=== PATIENT | male | born 1955 | race Caucasian/White ===

== ENCOUNTER → 2016-07-29 | Outpatient (CLI) | payer MEDICARE | LOC: M SLEEP 19:25 | PROVIDERS: ATTEND Internal Medicine Pulmonary Disease | DX: G47.30 Sleep apnea, unspecified (principal) ==

== ENCOUNTER → 2018-02-22 | Outpatient (REF) | payer MEDICARE | LOC: M LAB REF 16:34 | DX: L08.9 Local infection of the skin and subcutaneous tissue, unspecified (principal) | CPT/HCPCS: 87186 ==

== ENCOUNTER → 2019-01-30 | Outpatient (CLI) | payer BC ==
--- NOTE | 2019-02-06 04:04 | ECWPNPC ---
PATIENT NAME: TRUPTI ARNOLD : 1955 GENDER: MALE VISIT DATE: 01/30/2019 DISCHARGE DATE: 01/30/19 1631 VISIT LOCKED DATE TIME: PHYSICIAN: PRADEEP WALSH MD RESOURCE: PRADEEP WALSH MD REASON FOR APPOINTMENT 1. SCIATICA HISTORY OF PRESENT ILLNESS PAIN SCREENING: PATIENT HAS A COMPLAINT OF ACUTE OR CHRONIC PAIN :YES 63 YEAR OLD MALE PATIENT WITH A HISTORY OF CHRONIC LOW BACK AND BILATERAL LEG PAIN. THE PATIENT DESCRIBES THE PAIN ACHING, BURNING, SORE, AND SHOOTING WITH A PAIN SCORE OF 6-10/10 DEPENDING ON PHYSICAL ACTIVITY. THE PATIENT STATES HIS PAIN BEGINS IN HIS LOW BACK AND RADIATES DOWN BOTH LEGS, BUT THE PAIN IS WORSE IN HIS RIGHT LEG. THE PATIENT SAYS HE HAS BEEN SUFFERING FROM HIS PAIN FOR MANY YEARS, BUT THE PAIN HAS WORSENED OVER THE LAST YEAR. 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 THE PATIENT SAYS HE HURT HIS BACK BUT CONTINUED TO WORK THROUGH HIS SHIFT THAT DAY, BUT EXPERIENCED PAIN THROUGH THE DAY AND NIGHT, AND BY THE NEXT MORNING HE TRIED TO ROLL OUT OF BED BUT WAS UNABLE TO MOVE DUE TO HIS LOW BACK PAIN. THE PATIENT STATES HE HAD BACK SURGERY PERFORMED BY DR. ALAMO AT [facility] AND LATER RETURNED TO WORK, UNTIL HE HAD ANOTHER BACK INJURY AFTER SWINGING A BOX AT WORK AND HE COLLAPSED FROM THE PAIN. THE PATIENT SAYS HE HAS NOT RETURNED TO WORK SINCE HIS LAST INCIDENT. THE PATIENT REPORTS HIS TWO BACK SURGERIES WERE DONE IN [address] ALAMO AT [facility]. THE PATIENT SAYS HE IS USING LYRICA TO AID IN PAIN RELIEF. PATIENT DENIES UNEXPLAINABLE WEIGHT LOSS, FEVER, CHILLS, NEW CHANGES ON HIS URINARY OR BOWEL CONTROL. FALL RISK SCREENING: SCREENING :NO FALLS REPORTED IN THE LAST YEAR CURRENT MEDICATIONS TAKING LYRICA 75 MG CAPSULE 1 CAPSULE ORALLY TID TAKING VALSARTAN 160 MG TABLET 1 TABLET ORALLY ONCE A DAY TAKING ATORVASTATIN CALCIUM 40 MG TABLET 1 TABLET ORALLY ONCE A DAY TAKING ASPIR-81 TAKING LABETALOL HCL 200 MG TABLET 1 TABLET ORALLY TWICE A DAY TAKING SERTRALINE HCL 100 MG TABLET 1 TABLET ORALLY ONCE A DAY TAKING LEVOTHYROXINE SODIUM 25 MCG TABLET 1 TABLET IN THE MORNING ON AN EMPTY STOMACH ORALLY ONCE A DAY TAKING VITAMIN D (CHOLECALCIFEROL) 50 MCG (1999 UT) CAPSULE 1 CAPSULE ORALLY ONCE A DAY TAKING MECLIZINE HCL 12.5 MG TABLET 1 TABLETS NEEDED ORALLY TID PRN MEDICATION LIST REVIEWED AND RECONCILED WITH THE PATIENT PAST MEDICAL HISTORY HTN HYPOTHYROIDISM HIGH CHOLESTEROL ALLERGIES VICKS BABYRUB: ANAPHYLAXIS - ALLERGY MELON: ANAPHYLAXIS - ALLERGY SURGICAL HISTORY BACK SURGERY 1993 & 1996 5 CARDIAC STENTS 2015 4 SHOULDER SURGERIES AND 2 ROTATOR CUFF REPAIRS [phone] BILAT CARPAL TUNNEL RELEASE ABD HERNIA REPAIR CHOLECYSTECTOMY FAMILY HISTORY FATHER: MOTHER: 3 BROTHER(S) , 2 SISTER(S) . 3 SON(S) - HEALTHY. SOCIAL HISTORY GENERAL: TOBACCO USE ARE YOU A:NONSMOKER PAIN CLINIC PFS, CLERGY, PUBLIC HEALTH REFERRALS HAS THE PATIENT BEEN EDUCATED REGARDING HIS/HER PLAN OF CARE?YES HAS THE PATIENT BEEN EDUCATED REGARDING PAIN, THE RISK FOR PAIN, THE IMPORTANCE OF EFFECTIVE PAIN MANAGEMENT, AND THE PAIN ASSESSMENT PROCESS?YES ADVANCE DIRECTIVE ADVANCE DIRECTIVE DISCUSSED WITH PATIENT:YES DECLINED ORTHODOX [id number] CATHOLIC LANGUAGE LANGUAGES SPOKEN:ROMANIAN LEARNING BARRIERS / SPECIAL NEEDS BARRIERS TO LEARNING?NO HEARING IMPAIRED?NO VISION IMPAIRED?YES :CORRECTIVE LENSES COGNITIVELY IMPAIRED?NO READINESS TO LEARN?YES LEARNING PREFERENCES?NO LEARNING CAPABILITIES PRESENT?YES EMOTIONAL BARRIERS?NO SPECIAL DEVICES?NO HOSPITALIZATION/MAJOR DIAGNOSTIC PROCEDURE SURGERIES REVIEW OF SYSTEMS REVIEWED BY: PROVIDER: PRADEEP WALSH MD . CONSTITUTIONAL: ANY CHANGE IN YOUR MEDICAL CONDITION? NO . CHILLS NO . FEVER NO . INFECTION: DO YOU HAVE NEW INFECTIONS? NO . DO YOU HAVE HISTORY OF MRSA? NO . MUSCULOSKELETAL: ANY NEW PATTERNS OF PAIN OR NUMBNESS? YES, PAIN GETS BETTER AND WORSE . SYTEMIC LUPUS NO . GASTROENTEROLOGY: ANY NEW CHANGE IN BOWEL CONTROL? NO . BARRETTS ESOPHAGUS NO . CIRRHOSIS NO . HEPATITIS NO . LIVER FAILURE NO . ACID REFLUX NO . UNEXPLAINED WEIGHT LOSS NO . GENITOURINARY: ANY NEW CHANGE IN BLADDER CONTROL? NO . IS THERE A CHANCE YOU COULD BE ? NO . HEMATOLOGY/LYMPH: DO YOU TAKE ANY BLOOD THINNERS? (FOR EXAMPLE- COUMADIN, PLAVIX, AGGRENOX, PLATEL, PRADAXA, OR XARELTO) NO . WHEN WAS YOUR LAST DOSE? DATE: TIME: . LOW PLATELET COUNT NO . SICKLE CELL DISEASE NO . VON WILLIEBRANDS NO . FACTOR V LEIDEN NO . THALLASEMIA NO . ANEMIA NO . EASY BRUISING NO . NEUROLOGY: HAVE YOU FALLEN IN THE PAST 12 MONTHS? YES, FELL LAST WEEK FROM LEG WEAKNESS . ANY NEW EXTREMITY NUMBNESS OR WEAKNESS? YES ,LEFT SHOULDER PAIN AND LOW BACK PAIN RADIATING DOWN LEGS . HEAD INJURY NO . DEMENTIA NO . CEREBRAL PALSY NO . MULTIPLE SCLEROSIS NO . DIZZINESS NO . HEADACHE NO . STROKES NO . VERTIGO NO . CARDIOLOGY: DO YOU HAVE A PACEMAKER OR DEFIBRILLATOR? NO . ANGINA NO . HEART ATTACK NO . HEART SURGERY YES, 5 STENTS PLACED . CONGESTIVE HEART FAILURE/FLUID OVERLOAD NO . CHEST PAIN NO . HIGH BLOOD PRESSURE ON MEDICATION(S) . IRREGULAR HEART BEAT NO . RESPIRATORY: HAVE YOU BEEN SICK IN THE PAST WEEK? NO . FEVER NO . FLU LIKE SYMPTOMS? NO . CPAP NO . BYPAP NO . ASTHMA NO . EMPHYSEMA NO . CHRONIC LUNG DISEASES NO . SHORTNESS OF BREATH ON EXERTION NO . COUGH NO . SNORING NO . INTEGUMENTARY: DO YOU HAVE ANY RASHES OR OPEN SORES? NO . ALLERGIC/IMMUNO: ARE YOU ALLERGIC TO IV DYE? NO . ANY NEW ALLERGIES? NO . PSYCHIATRIC: DO YOU HAVE THOUGHTS OF HURTING YOURSELF OR SOMEONE ELSE? NO . ARE YOU ABUSED, NEGLECTED, OR IN AN UNSAFE ENVIRONMENT? NO . ENDOCRINOLOGY: ARE YOU DIABETIC? NO . THYROID DISORDER HYPOTHYROID . OTHER: DO YOU NEED ANY PRESCRIPTIONS? NO . IF YES, PLEASE LIST: ____ . ANY NEW PROBLEMS WITH YOUR MEDICATIONS? NO . WHEN DID YOU LAST EAT? ____ . WHEN DID YOU LAST DRINK? ____ . WHAT DID YOU LAST DRINK? ____ . NAME OF PERSON DRIVING YOU HOME? ____ . DO YOU HAVE ANY OTHER QUESTIONS OR CONCERNS NO . VITAL SIGNS WT 322.4 LBS, HT 70 IN, BMI 46.25 INDEX, BP 163/82 MM HG, HR 71 /MIN, RR 18 /MIN, TEMP 98.8 F, OXYGEN SAT % 95%, NA INITIALS SC 15:09, REVIEWED BY: EM. EXAMINATION GENERAL EXAMINATION: PATIENT IS ALERT O X 3 AND COOPERATIVE. LUNGS CLEAR, TO AUSCULTATION. HEART: NO MURMURS OR GALLOPS; FACIAL CRANIAL NERVES ARE GROSSLY NORMAL. GOOD SYMMETRY OF FACIAL MUSCLE MOVEMENT. NORMAL VISUAL TORRES. ANTALGIC WALK. TENDERNESS OVER THE PARASPINAL MUSCLE GROUP OF THE LOW BACK. RIGHT LEG IS WEAKER AT EXTENSION AND FLEXION. STRAIGHT LEG RAISE OF THE RIGHT LEG IS POSITIVE AT 40 DEGREES FOR RADICULOPATHY. ASSESSMENTS LUMBAR POST-LAMINECTOMY SYNDROME - M96.1 (PRIMARY) INTERVERTEBRAL DISC DISORDERS WITH RADICULOPATHY, LUMBAR REGION - M51.16 CARDIAC CONDITION--HISTORY OF 5 STENTS. TREATMENT LUMBAR POST-LAMINECTOMY SYNDROME CLINICAL NOTES: WE DISCUSSED SEVERAL ISSUES WITH MR. ARNOLD'S PAIN MANAGEMENT CASE. I WOULD LIKE TO ORDER FOR A LUMBAR SPINE MRI WITH AND WITHOUT CONTRAST AND ALSO A BUN AND CREATININE TEST FOR THE CONTRAST. HOWEVER, THE PATIENT HAS A HISTORY OF 5 STENTS, THEREFORE I WILL REQUEST FOR A CLEARANCE FROM THE PATIENT'S CLOCK REPAIRER BEFORE ORDERING THE MRI'S. DEPENDING ON THE MRI RESULTS, I MAY CONSIDER PERFORMING A LUMBAR EPIDURAL IN THE FUTURE. THE PATIENT WILL FOLLOW UP WITH THE NURSE PRACTITIONER IN 3 WEEKS TO GO OVER THE RESULTS AND DISCUSS OPTIONS TO PROCEED WITH. INSTRUCTIONS WERE GIVEN, QUESTIONS WERE ANSWERED, PATIENT REPORTS UNDERSTANDING AND AGREES WITH THE PLAN. I, SHUKRI DOMINGO, DOCUMENTED THE ABOVE INFORMATION ACTING A SCRIBE FOR DR. WALSH. I HAVE REVIEWED THE ABOVE DOCUMENT, WRITTEN BY SHUKRI ELDER AND I VERIFY THAT IT IS ACCURATE. DEAR LYNN BOLTON MD: THANK YOU FOR YOUR KIND REFERRAL OF TRUPTI ARNOLD. IF YOU WANT TO DISCUSS HIS CASE WITH ME PLEASE CALL ME AT THE PAIN CENTER AT [phone]. SINCERELY, PRADEEP WALSH MD PAIN MEDICINE . PROCEDURE CODES G8427 CURRENT MEDS W/DOSAGES DOCUMENTED G8730 PAIN ASSESS POS TOOL F/U PLAN DOC FA211 ESTABILISHED PATIENT [facility] CHARGE DISPOSITION & COMMUNICATION FOLLOW UP REASON: F/UP SANDWICH HAND, NEED CLEARANCE FOR MRI, IF CLEARED--ORDER LS MRI W/ AND W/O CONTRAST ELECTRONICALLY SIGNED BY PRADEEP WALSH MD, MD ON 02/05/2019 AT 02:31 PM EST DISCLAIMER : THIS IS A VISIT SUMMARY EXTRACTED FROM THE [employer] CHART. IT IS NOT A COPY OF THE [employer] PROGRESS NOTE. RICK
== END ==
LOC: M PAIN 15:00
PROVIDERS: ATTEND Anesthesiology
DX: M96.1 Postlaminectomy syndrome, not elsewhere classified (principal); M51.16 Intervertebral disc disorders with radiculopathy, lumbar region

== ENCOUNTER → 2019-04-17 | Outpatient (REF) | payer BC | LOC: M LAB REF 17:03 | PROVIDERS: ATTEND Nurse Practitioner Family | DX: L08.9 Local infection of the skin and subcutaneous tissue, unspecified (principal) ==

== ENCOUNTER → 2019-06-01 | Outpatient (CLI) | payer MEDICARE ==
--- NOTE | 2019-06-01 09:56 | REP ---
MRI LUMBAR SPINE WITHOUT AND WITH CONTRAST: Low back pain. Lumbar post laminectomy syndrome. Comparison MRI study August 10, 2001. TECHNIQUE: Sagittal and axial T1- and T2-weighted scans are acquired in the usual fashion with and without fat saturation. Sequences include spin echo, turbo spin echo, and STIR imaging sequences. Contrast enhancement dose is 10 mL of intravenous ProHance. MRI FINDINGS: There is straightening of the normal lumbar lordosis. A small infrarenal abdominal aortic aneurysm is seen measuring 3.2 cm in greatest anteroposterior dimension. Lumbar vertebral body heights are preserved. There are bilateral L5 pars defects and there is a grade 1 L5-S1 spondylolisthesis visible today. This measures 8 mm in dimension. It is a new finding from the 2001 prior study, although the pars defects were noted. Alignment is otherwise normal. There is diffuse degenerative spondylosis and degenerative disc changes. The tip of the conus medullaris remains normal in position and appearance at L1. No other extra vertebral abnormality is appreciated. There is a mild levoconvex lumbar curvature. Axial and sagittal images taken at L1-L2 demonstrate posterior disc bulging and osteophytic ridging indenting the ventral margin of the thecal sac and contributing to mild central canal stenosis. Midline AP dimension of the thecal sac at the L1-2 level is 10 mm. There is mild left-sided foraminal narrowing from facet hypertrophy and disc spurring. At L2-L3, there is a broad-based disc protrusion most prominent on the left side of the posterior disc margin. This along with ligamentum flavum and facet hypertrophy and developmentally short pedicles produces moderate to severe central canal stenosis. The mid line AP dimension of the thecal sac at L2-3 on sagittal images is 7 mm. There is left-sided foraminal narrowing due to disc bulging and facet hypertrophy. Minimal foraminal narrowing is noted on the right at this level as well. At the L3-4, there is a right posterior focal disc protrusion with spurring indenting the ventral margin of the thecal sac on the right. There is right foraminal narrowing from facet hypertrophy and disc bulging. There is mild central canal stenosis. Facet and mild ligamentum flavum hypertrophy is seen. At L3-4, the midline AP dimension of the thecal sac is 12 mm. At the L4-L5, there is posterior disc bulging and osteophytic ridging. No central canal stenosis is seen. There is bilateral neural foraminal narrowing, right greater than left due to discogenic spurring, disc bulging, and facet hypertrophy. At L5-S1, there is facet hypertrophy bilaterally. Minimal disc bulging is seen. There is bilateral foraminal disc bulging which along with the spondylolisthesis produces foraminal narrowing. Postcontrast enhanced imaging shows no significant contrast enhancement. IMPRESSION: Progressive degenerative spondylosis changes. Bilateral pars defects at L5-S1 with a grade 1 8 mm L5-S1 spondylolisthesis and bilateral neural foraminal narrowing. Central canal stenosis is noted most pronounced at L2-3. Multilevel neural foraminal narrowing as above. Electronically Signed by Miguel Hall MD 06/01/2019 10:01 A
== END ==
LOC: M PLARAD 07:40
PROVIDERS: ATTEND Anesthesiology
DX: M47.816 Spondylosis without myelopathy or radiculopathy, lumbar region (principal); M48.061 Spinal stenosis, lumbar region without neurogenic claudication; M54.5 Low back pain; M96.1 Postlaminectomy syndrome, not elsewhere classified

== ENCOUNTER → 2019-06-15 | Outpatient (CLI) | payer OTHER, BC ==
--- NOTE | 2019-06-16 01:25 | ECWPNPC ---
PATIENT NAME: TRUPTI ARNOLD : 1955 GENDER: MALE VISIT DATE: 06/15/2019 DISCHARGE DATE: 06/15/19 1153 VISIT LOCKED DATE TIME: PHYSICIAN: IRMA LAZO RESOURCE: IRMA LAZO REASON FOR APPOINTMENT 1. W/C, REVIEW MRI HISTORY OF PRESENT ILLNESS HISTORY OF PRESENT ILLNESS: 64-YEAR-OLD GENTLEMAN BEING SEEN FOR CHRONIC LOW BACK PAIN AND BILATERAL LEG PAIN. THIS IS A WORK RELATED INJURY WITH DATE OF INJURY 1985 WHILE WORKING FOR [email or web address]. PAIN IS LOCATED ACROSS LOWER BACK. RATING PAIN LEVEL A 7/10 VAS. PAIN IS AGGRAVATED WITH ANY ACTIVITY. REPORTING POOR QUALITY OF LIFE AND INABILITY TO DO ACTIVITIES OF DAILY LIVING DUE TO BACK PAIN AND LEG PAIN. REVIEWED MRI OF THE LS-SPINE DONE ON 06/01/2019. THIS IS SHOWING PROGRESSIVE CHANGES AND GRADE 1 SPONDYLOLISTHESIS AND BILATERAL NEURAL FORAMINAL NARROWING AT L5-S1. SHOWING CENTRAL CANAL STENOSIS MOST PRONOUNCED AT L2-3. REPORTS AGGRAVATION OF PAIN WITH RANGE OF JOINT MOTION OF THE SPINE. PAIN THE PATIENT DESCRIBES THE PAIN... FALL RISK SCREENING: SCREENING :NO FALLS REPORTED IN THE LAST YEAR CURRENT MEDICATIONS TAKING LYRICA 75 MG CAPSULE 1 CAPSULE ORALLY TID TAKING VALSARTAN 160 MG TABLET 1 TABLET ORALLY ONCE A DAY TAKING ATORVASTATIN CALCIUM 40 MG TABLET 1 TABLET ORALLY ONCE A DAY TAKING ASPIR-81 TAKING LABETALOL HCL 200 MG TABLET 1 TABLET ORALLY TWICE A DAY TAKING SERTRALINE HCL 100 MG TABLET 1 TABLET ORALLY ONCE A DAY TAKING LEVOTHYROXINE SODIUM 25 MCG TABLET 1 TABLET IN THE MORNING ON AN EMPTY STOMACH ORALLY ONCE A DAY TAKING MECLIZINE HCL 12.5 MG TABLET 1 TABLETS NEEDED ORALLY TID PRN TAKING AMLODIPINE BESYLATE 5 MG TABLET 1 TABLET ORALLY ONCE A DAY NOT-TAKING VITAMIN D (CHOLECALCIFEROL) 50 MCG (1999) CAPSULE 1 CAPSULE ORALLY ONCE A DAY MEDICATION LIST REVIEWED AND RECONCILED WITH THE PATIENT PAST MEDICAL HISTORY HTN HYPOTHYROIDISM HIGH CHOLESTEROL ALLERGIES VICKS BABYRUB: ANAPHYLAXIS - ALLERGY MELON: ANAPHYLAXIS - ALLERGY SURGICAL HISTORY BACK SURGERY 1993 & 1996 5 CARDIAC STENTS 2015 4 SHOULDER SURGERIES AND 2 ROTATOR CUFF REPAIRS [id number] BILAT CARPAL TUNNEL RELEASE ABD HERNIA REPAIR CHOLECYSTECTOMY FAMILY HISTORY FATHER: MOTHER: 3 BROTHER(S) , 2 SISTER(S) . 3 SON(S) - HEALTHY. SOCIAL HISTORY GENERAL: TOBACCO USE ARE YOU A:NONSMOKER PAIN CLINIC PFS, CLERGY, PUBLIC HEALTH REFERRALS HAS THE PATIENT BEEN EDUCATED REGARDING HIS/HER PLAN OF CARE?YES HAS THE PATIENT BEEN EDUCATED REGARDING PAIN, THE RISK FOR PAIN, THE IMPORTANCE OF EFFECTIVE PAIN MANAGEMENT, AND THE PAIN ASSESSMENT PROCESS?YES LATEX QUESTIONNAIRE LATEX ALLERGY : HAVE YOU EVER DEVELOPED ANY TYPE OF REACTION AFTER HANDLING LATEX PRODUCTS SUCH RUBBER GLOVES, CONDOMS, DIAPHRAGMS, BALLOONS, SOCKS, OR UNDERWEAR?NO LATEX ALLERGY : HAVE YOU EVER DEVELOPED ANY TYPE OF REACTION DURING OR AFTER DENTAL APPOINTMENT, VAGINAL/RECTAL EXAMINATION, SURGICAL PROCEDURE, OR ANY OTHER EXPOSURE?NO LATEX RISK : HAVE YOU EVER HAD ANY DIFFICULTY BREATHING OR HIVES AFTER EATING OR HANDLING ANY FRUITS, OR VEGETABLES; SUCH KIWI, BANANAS, STONE FRUITS, OR CHESTNUTSNO LATEX RISK : DO YOU HAVE A PREVIOUS PERSONAL HISTORY OF MORE THAN NINE SURGERIES, SPINA BIFIDA, OR REPEATED CATHERIZATIONS? NO LATEX RISK : ARE YOU FREQUENTLY EXPOSED TO LATEX PRODUCTS IN YOUR OCCUPATION?NO DATE ASKED : 06/15/2019 ADVANCE DIRECTIVE ADVANCE DIRECTIVE DISCUSSED WITH PATIENT:YES DECLINED [employer] [id number] JEW LANGUAGE LANGUAGES SPOKEN:OCCITAN NEW PATIENT PAIN DIARY TODAY'S VISITNOTES PATIENT DESCRIBES PAIN :HAVE IT ALL THE TIME, THROBBING FROM 0-10, WHAT LEVEL IS YOUR PAIN TODAY?8 PAIN IS WAKING HIM UP FROM SLEEP ALCOHOL SCREENING DID YOU HAVE A DRINK CONTAINING ALCOHOL IN THE PAST YEAR?NO POINTS0 INTERPRETATIONNEGATIVE RECREATIONAL DRUG USE DRUG USE?NO PATIENT DENIES ABUSE OR MISSUSED OF ANY MEDICATION DENIES PATIENT DENIES USE OF ANY ILLEGAL SUBSTANCE INCLUDING MARIJUANA OR COCAINE DENIES LEARNING BARRIERS / SPECIAL NEEDS BARRIERS TO LEARNING?NO HEARING IMPAIRED?NO VISION IMPAIRED?YES COGNITIVELY IMPAIRED?NO :CORRECTIVE LENSES READINESS TO LEARN?YES LEARNING PREFERENCES?NO LEARNING CAPABILITIES PRESENT?YES EMOTIONAL BARRIERS?NO SPECIAL DEVICES?NO HOSPITALIZATION/MAJOR DIAGNOSTIC PROCEDURE SURGERIES REVIEW OF SYSTEMS REVIEWED BY: PROVIDER: IRMA GUDINO . CONSTITUTIONAL: ANY CHANGE IN YOUR MEDICAL CONDITION? NO . CHILLS NO . FEVER NO . INFECTION: DO YOU HAVE NEW INFECTIONS? NO . DO YOU HAVE HISTORY OF MRSA? NO . MUSCULOSKELETAL: ANY NEW PATTERNS OF PAIN OR NUMBNESS? NO . GASTROENTEROLOGY: ANY NEW CHANGE IN BOWEL CONTROL? NO . GENITOURINARY: ANY NEW CHANGE IN BLADDER CONTROL? NO . IS THERE A CHANCE YOU COULD BE ? NO . HEMATOLOGY/LYMPH: DO YOU TAKE ANY BLOOD THINNERS? (FOR EXAMPLE- COUMADIN, PLAVIX, AGGRENOX, PLATEL, PRADAXA, OR XARELTO) NO- ASPIRIN- 81 MG DAILY . WHEN WAS YOUR LAST DOSE? DATE: TIME: . NEUROLOGY: HAVE YOU FALLEN IN THE PAST 12 MONTHS? NO . ANY NEW EXTREMITY NUMBNESS OR WEAKNESS? NO . CARDIOLOGY: DO YOU HAVE A PACEMAKER OR DEFIBRILLATOR? NO . RESPIRATORY: HAVE YOU BEEN SICK IN THE PAST WEEK? NO . FEVER NO . FLU LIKE SYMPTOMS? NO . COUGH NO . INTEGUMENTARY: DO YOU HAVE ANY RASHES OR OPEN SORES? NO . ALLERGIC/IMMUNO: ARE YOU ALLERGIC TO IV DYE? NO . ANY NEW ALLERGIES? NO . PSYCHIATRIC: DO YOU HAVE THOUGHTS OF HURTING YOURSELF OR SOMEONE ELSE? NO . ARE YOU ABUSED, NEGLECTED, OR IN AN UNSAFE ENVIRONMENT? NO . ENDOCRINOLOGY: ARE YOU DIABETIC? NO . OTHER: DO YOU NEED ANY PRESCRIPTIONS? NO . IF YES, PLEASE LIST: ____ . ANY NEW PROBLEMS WITH YOUR MEDICATIONS? NO . WHEN DID YOU LAST EAT? ____ . WHEN DID YOU LAST DRINK? ____ . WHAT DID YOU LAST DRINK? ____ . NAME OF PERSON DRIVING YOU HOME? ____ . DO YOU HAVE ANY OTHER QUESTIONS OR CONCERNS YES- STATES BILATERAL KNEES AND BILATERAL ANKLES ARE SWOLLEN, STATES HE HAS PAIN IN BILATERAL HIPS THAT RADIATES DOWN THE FRONT AND BACK OF BOTH LEGS INTO HIS FEET . VITAL SIGNS WT 318 LBS, HT 70 IN, BMI 45.62 INDEX, BP 135/80 MM HG, HR 75 /MIN, RR 18 /MIN, TEMP 97.2 F, OXYGEN SAT % 98%, SAFE IN ENV? (Y/N) YES, NA INITIALS AW 1017, REVIEWED BY: JAMIE. EXAMINATION GENERAL EXAMINATION: GENERAL AWAKE,ALERT ,PLEAASANT . PSYCH AFFECT NORMAL . LUNGS: LUNG TORRES ARE CLEAR TO AUSCULTATION BILATERALLY. GOOD MOVEMENT OF AIR . HEART: S1, S2 IN A REGULAR RATE AND RHYTHM. NO SIGNIFICANT MURMURS, RUBS OR GALLOPS NOTED . MUSCULOSKELETAL: MUSCLE STRENGTH TESTING 4/5 BILATERAL LOWER EXTREMITIES. LUMBAR: TRIGGER POINTS:, ELICITED WITH PALPATION OVER LUMBAR PARAVERTEBRAL MUSCLES AND RESTRICTION OF ROM IN THIS AREA. DIAGNOSTIC TESTS REVIEWED MRI L/S SPINE-06/01/2019. ASSESSMENTS LUMBAR POST-LAMINECTOMY SYNDROME - M96.1 (PRIMARY) CARDIAC CONDITION--HISTORY OF 5 STENTS. TREATMENT LUMBAR POST-LAMINECTOMY SYNDROME NOTES: WORKMEN'S COMP REQUEST TRIGGER POINT INJECTIONS, BILATERAL LOW BACK. PREVENTIVE MEDICINE PAIN CLINIC TEACHING: PROCEDURE TEACHING TRIGGER POINT INJECTION INFORMATION PRINTED AND REVIEWED WITH PT. PT VERBLAIZES UNDERSTANDING OF PROCEDURE WELL AN UNDERSTANDING OF PRE PROCEDURE INSTRUCTIONS REVIEWED. 06/15/2019 1154 NLJ. PROCEDURE CODES FA211 ESTABILISHED PATIENT [facility] CHARGE DISPOSITION & COMMUNICATION FOLLOW UP POST (REASON: WORKMEN'S COMP REQUEST TRIGGER POINT INJECTIONS, BILATERAL LOW BACK) ELECTRONICALLY SIGNED BY SHAHAB IRIZARRY ON 06/15/2019 AT 01:52 PM EDT DISCLAIMER : THIS IS A VISIT SUMMARY EXTRACTED FROM THE [employer] CHART. IT IS NOT A COPY OF THE [employer] PROGRESS NOTE. RICK
== END ==
LOC: M PAIN 10:00
PROVIDERS: ATTEND Nurse Practitioner Family
DX: M96.1 Postlaminectomy syndrome, not elsewhere classified (principal); I10 Essential (primary) hypertension; E03.9 Hypothyroidism, unspecified; Z91.018 Allergy to other foods; Z91.09 Other allergy status, other than to drugs and biological substances; E66.01 Morbid (severe) obesity due to excess calories; Z68.42 Body mass index [BMI] 45.0-49.9, adult; Z79.82 Long term (current) use of aspirin; Z79.899 Other long term (current) drug therapy

== ENCOUNTER → 2019-08-05 | Outpatient (CLI) | payer OTHER | LOC: M LABSMTC 09:17 | PROVIDERS: ATTEND Anesthesiology | DX: Z11.59 Encounter for screening for other viral diseases (principal) ==

== ENCOUNTER → 2019-08-08 | Outpatient (CLI) | payer OTHER, BC ==
[~2019-08-08] MED LIST: BUPIVACAINE HCL 0.25% 10ML VIAL As Ordered ONE; BUPIVACAINE HCL 0.25% 30ML VIAL As Ordered ONE
--- NOTE | 2019-08-11 01:27 | ECWPNPC ---
PATIENT NAME: TRUPTI ARNOLD : 1955 GENDER: MALE VISIT DATE: 08/08/2019 DISCHARGE DATE: 08/08/19 1451 VISIT LOCKED DATE TIME: PHYSICIAN: PRADEEP WALSH MD RESOURCE: PRADEEP WALSH MD REASON FOR APPOINTMENT 1. W/C TRIGGER POINT INJECTIONS BILAT LOW BACK HISTORY OF PRESENT ILLNESS GENERAL: -. FALL RISK SCREENING: SCREENING :ONE FALL WITHOUT INJURY IN THE PAST YEAR PAIN SCREENING: PATIENT HAS A COMPLAINT OF ACUTE OR CHRONIC PAIN :YES INTENSITY OF PAIN (SCALE OF 1 TO 10):7 WHAT DOES YOUR PAIN FEEL LIKE:BURNING, STABBING PAIN IS INREASED BY:ACTIVITIES PAIN IS DECREASED BY:OTHERS REST, LAYING DOWN NURSING NOTE: -. PAIN CENTER INTAKE QUESTIONS: DO YOU HAVE A HISTORY OF MRSA? :NO DO YOU TAKE A BLOOD THINNERS? :NO DO YOU HAVE ANY BLEEDING DISORDERS? :NO ANY NEW NUMBNESS OR WEAKNESS IN YOUR LEGS OR ARMS? :YES BOTH NUMBNESS AND WEAKNESS TO BILAT LEGS ANY PACEMAKER,DEFIBRILLATOR, OR DORSAL COLUMN STIMULATOR? :NO DO YOU HAVE ANY RASHES OR OPEN SORES? :NO ARE YOU ALLERGIC TO IV DYE? :NO ARE YOU DIABETIC? :NO ANY NEW PROBLEMS WITH YOUR MEDICATIONS? :NO HAVE YOU RECEIVED A VACCINE IN THE PAST 30 DAYS? :NO DO YOU PLAN TO RECEIVE A VACCINE IN THE NEXT 21 DAYS? :NO ANY HISTORY OF SEIZURES? :NO ANY HISTORY OF CARDIAC ISSUES OR EVENTS? :YES 08/2015 CARDIAC STENT PLACED DO YOU HAVE SLEEP APNEA? :YES DO YOU WEAR A CPAP? PT WORE A CPAP MACHINE BUT HAD TO STOP FOR AN INFENTION ON TOP OF HEAD FROM [place] ANY RECENT HEAD INJURY? :NO DO YOU HAVE ANY NEW INFECTIONS? :NO WHEN DID YOU LAST EAT? : 08/06 8P WHEN DID YOU LAST DRINK? : 08/07 1200 WHAT DID YOU LAST DRINK? : WATER NAME OF PERSON DRIVING YOU HOME? : SON WHEN DID YOU LAST EAT? WHEN DID YOU LAST DRINK? WHAT DID YOU LAST DRINK? NAME OF PERSON DRIVING YOU HOME DO YOU HAVE ANY OTHER QUESTIONS OR CONCERNS? . CURRENT MEDICATIONS TAKING LYRICA 75 MG CAPSULE 1 CAPSULE ORALLY TID, NOTES: 08/07 7A TAKING VALSARTAN 160 MG TABLET 1 TABLET ORALLY ONCE A DAY, NOTES: 08/07 7A TAKING ATORVASTATIN CALCIUM 40 MG TABLET 1 TABLET ORALLY ONCE A DAY, NOTES: 08/07 TAKING LABETALOL HCL 200 MG TABLET 1 TABLET ORALLY TWICE A DAY, NOTES: 08/07 TAKING SERTRALINE HCL 100 MG TABLET 1 TABLET ORALLY ONCE A DAY, NOTES: 08/07 TAKING LEVOTHYROXINE SODIUM 25 MCG TABLET 1 TABLET IN THE MORNING ON AN EMPTY STOMACH ORALLY ONCE A DAY, NOTES: 08/07 TAKING MECLIZINE HCL 12.5 MG TABLET 1 TABLETS NEEDED ORALLY TID PRN, NOTES: 08/07 TAKING AMLODIPINE BESYLATE 5 MG TABLET 1 TABLET ORALLY ONCE A DAY, NOTES: 08/07 TAKING MELOXICAM 7.5 MG TABLET 1 TABLET ORALLY ONCE A DAY, NOTES: 08/07 7A NOT-TAKING ASPIR-81 NOT-TAKING VITAMIN D (CHOLECALCIFEROL) 50 MCG (1999 UT) CAPSULE 1 CAPSULE ORALLY ONCE A DAY MEDICATION LIST REVIEWED AND RECONCILED WITH THE PATIENT PAST MEDICAL HISTORY HTN HYPOTHYROIDISM HIGH CHOLESTEROL ALLERGIES VICKS BABYRUB: ANAPHYLAXIS - ALLERGY MELON: ANAPHYLAXIS - ALLERGY SURGICAL HISTORY BACK SURGERY 1993 & 1996 5 CARDIAC STENTS 2015 4 SHOULDER SURGERIES AND 2 ROTATOR CUFF REPAIRS [id number] BILAT CARPAL TUNNEL RELEASE ABD HERNIA REPAIR CHOLECYSTECTOMY FAMILY HISTORY FATHER: MOTHER: 3 BROTHER(S) , 2 SISTER(S) . 3 SON(S) - HEALTHY. SOCIAL HISTORY GENERAL: TOBACCO USE ARE YOU A:NONSMOKER LATEX QUESTIONNAIRE LATEX ALLERGY : HAVE YOU EVER DEVELOPED ANY TYPE OF REACTION AFTER HANDLING LATEX PRODUCTS SUCH RUBBER GLOVES, CONDOMS, DIAPHRAGMS, BALLOONS, SOCKS, OR UNDERWEAR?NO LATEX ALLERGY : HAVE YOU EVER DEVELOPED ANY TYPE OF REACTION DURING OR AFTER DENTAL APPOINTMENT, VAGINAL/RECTAL EXAMINATION, SURGICAL PROCEDURE, OR ANY OTHER EXPOSURE?NO LATEX RISK : HAVE YOU EVER HAD ANY DIFFICULTY BREATHING OR HIVES AFTER EATING OR HANDLING ANY FRUITS, OR VEGETABLES; SUCH KIWI, BANANAS, STONE FRUITS, OR CHESTNUTSNO LATEX RISK : DO YOU HAVE A PREVIOUS PERSONAL HISTORY OF MORE THAN NINE SURGERIES, SPINA BIFIDA, OR REPEATED CATHERIZATIONS? NO LATEX RISK : ARE YOU FREQUENTLY EXPOSED TO LATEX PRODUCTS IN YOUR OCCUPATION?NO DATE ASKED : 08/08/2019 ALCOHOL SCREENING DID YOU HAVE A DRINK CONTAINING ALCOHOL IN THE PAST YEAR?NO POINTS0 INTERPRETATIONNEGATIVE RECREATIONAL DRUG USE DRUG USE?NO PATIENT DENIES ABUSE OR MISSUSED OF ANY MEDICATION DENIES PATIENT DENIES USE OF ANY ILLEGAL SUBSTANCE INCLUDING MARIJUANA OR COCAINE DENIES NONDENOMINATIONAL [id number] MOSQUE LANGUAGE LANGUAGES SPOKEN:ARMENIAN LEARNING BARRIERS / SPECIAL NEEDS BARRIERS TO LEARNING?NO HEARING IMPAIRED?NO VISION IMPAIRED?YES COGNITIVELY IMPAIRED?NO :CORRECTIVE LENSES READINESS TO LEARN?YES LEARNING PREFERENCES?NO LEARNING CAPABILITIES PRESENT?YES EMOTIONAL BARRIERS?NO SPECIAL DEVICES?NO NEW PATIENT PAIN DIARY TODAY'S VISITNOTES PATIENT DESCRIBES PAIN :OTHER FROM 0-10, WHAT LEVEL IS YOUR PAIN TODAY?8 PAIN CLINIC PFS, CLERGY, PUBLIC HEALTH REFERRALS WAS THE PROVIDER NOTIFIED OF ANY PERTINENT INFO?YES HAS THE PATIENT BEEN EDUCATED REGARDING HIS/HER PLAN OF CARE?YES HAS THE PATIENT BEEN EDUCATED REGARDING PAIN, THE RISK FOR PAIN, THE IMPORTANCE OF EFFECTIVE PAIN MANAGEMENT, AND THE PAIN ASSESSMENT PROCESS?YES ADVANCE DIRECTIVE ADVANCE DIRECTIVE DISCUSSED WITH PATIENT:YES PT STATES THAT HE DOES NOT HAVE HCP AT THIS TIME, DECLINES ASSISTANCE WITH PAPERWORK. DS HOSPITALIZATION/MAJOR DIAGNOSTIC PROCEDURE SURGERIES VITAL SIGNS WT 305.4 LBS, HT 70 IN, BMI 43.82 INDEX, BP 118/62 MM HG, HR 85 /MIN, RR 18 /MIN, TEMP 98.4 F, OXYGEN SAT % 98%, SAFE IN ENV? (Y/N) Y, NA INITIALS TL 1357, REVIEWED BY: MAYRA. EXAMINATION GENERAL EXAMINATION: THE PATIENT IS ALERT, ORIENTED TIMES THREE AND COOPERATIVE. HEART SHOWS REGULAR RHYTHM, NO MURMURS AND NO GALLOPS. LUNGS ARE CLEAR TO AUSCULTATION. ASSESSMENTS MYALGIA, OTHER SITE - M79.18 (PRIMARY) TREATMENT OTHERS CLINICAL NOTES: PRE SCREENING CALL DONE 08/07/19 EM. PROCEDURES PAIN NURSING RECORD PRE-PROCEDURE IV SITE N/A, PRE-PROCEDURE ORAL MEDICATIONS NONE PROCEDURE IN ROOM 1400, PHYSICIAN IN ROOM 1429, START 1434, FINISH 1436, PHYSICIAN OUT OF ROOM 1437, OUT OF ROOM 1445, STEROID N/A, O2 RA, ECG N/A, PATIENT SHIELDED NO, SAFETY STRAP NO, PREP ALCOHOL, IV INFUSED N/A, DRESSING TEGADERM DSHERIDAN RN LOC: 1. ALERT, ORIENTED RESP: 1.REGULAR, NO DYSPNEA COLOR: 1.PINK SKIN: 1. WARM,DRY POSITION: 4. SITTING VITALS: 1445 BP 94/61 HR 89 RR 18 O2 SAT 95% DISCHARGE: POST PAIN 5/10, DRESSING SITE DRY AND INTACT, IV N/A, GAIT STEADY, TEACHING COMPLETED, PATIENT ACKNOWLEDGES UNDERSTANDING YES, PATIENT DISCHARGED AT 1445 PN WORKMANS' COMP OPINION IN YOUR OPINION, WAS THE INCIDENT THAT THE PATIENT DESCRIBED THE COMPETENT MEDICAL CAUSE OF THIS INJURY/ILLNESS? YES ARE THE PATIENT'S COMPLAINTS CONSISTENT WITH HIS/HER HISTORY OF THE INJURY/ILLNESS? YES IS THE PATIENT'S HISTORY OF THE INJURY/ILLNESS CONSISTENT WITH YOUR OBJECTIVE FINDING? YES WHAT IS THE PERCENTAGE OF TEMPORARY IMPAIRMENT? MILD = 25% IS THE PATIENT WORKING? NO . DOCTOR ON SITE: PRADEEP CUEVAS MD PN TRIGGER POINT INJECTION NO STEROIDS PRE PROCEDURE DIAGNOSIS 1. MYALGIA 2. PAIN AT BILATERAL LOWER BACK AREA POST PROCEDURE DIAGNOSIS 1. MYALGIA 2. PAIN AT BILATERAL LOWER BACK AREA PROCEDURE TRIGGER POINT INJECTION AT BILATERAL LOWER BACK AREA SURGEON DR. PRADEEP WALSH MIRROR SPECIALIST NONE ANESTHESIA LOCAL PRE PROCEDURE NOTE 64-YEAR-OLD PATIENT WITH HISTORY OF CHRONIC PAIN AT LEFT AND RIGHT LOWER BACK AREA. I EVALUATED THE PATIENT AND REVIEWED THE CHART. THERE IS EVIDENCE OF BANDS OF TISSUE WITH RESTRICTION OF MOVEMENT AND PRESENCE OF TRIGGER POINT AT THE LEFT AND RIGHT LOWER BACK AREA. I WENT OVER THE RISKS, ALTERNATIVES, AND BENEFITS ASSOCIATED WITH THIS PROCEDURE. THE PATIENT WOULD LIKE TO PROCEED AND GAVE CONSENT TO PERFORM THE PROCEDURE. THE PATIENT DENIES UNEXPLAINABLE WEIGHT LOSS, FEVER, CHILLS, OR NEW CHANGES IN URINARY OR BOWEL CONTROL. THE PATIENT IS COVID-19 NEGATIVE DESCRIPTION OF PROCEDURE THE PATIENT WAS BROUGHT TO THE PROCEDURE ROOM AND PLACED IN THE SITTING POSITION. THE AREA WAS CLEANED WITH ALCOHOL. THE PROCEDURE WAS DONE USING ASEPTIC STERILE TECHNIQUES. I CHECKED LATERALITY AND THE LEVEL WHERE THE PROCEDURE WAS GOING TO BE PERFORMED WITH THE PATIENT AND THE SUPPORTING STAFF AT THE MOMENT OF THE TIME OUT IN THE PROCEDURE ROOM. USING A 25-GAUGE NEEDLE, TRIGGER POINTS WERE INJECTED INTO THE LEFT AND RIGHT LOWER BACK AREA WITH A TOTAL OF 40 ML OF BUPIVACAINE 0.25%. AGREED WITH THE PATIENT THE PROCEDURE WAS DONE WITHOUT STEROIDS. THERE WAS NO EVIDENCE OF BLOOD, PARESTHESIA OR CEREBROSPINAL FLUID DURING THE PROCEDURE. THE PATIENT WAS SENT TO THE RECOVERY ROOM. THE PATIENT WAS MOVING THE EXTREMITIES AND DOING WELL. THERE WAS NO COMPLICATION DURING THE PROCEDURE POST PROCEDURE NOTE THE PROCEDURE DONE WAS DISCUSSED WITH THE PATIENT. THE PATIENT WILL BE SEEN IN A FOLLOW UP IN THE NEXT FEW WEEKS. I AM LOOKING FOR LONG LASTING PAIN RELIEF FOR THE PATIENT WITH THIS INTERVENTION. INSTRUCTIONS WERE GIVEN, QUESTIONS WERE ANSWERED, AND THE PATIENT EXPRESSED UNDERSTANDING AND AGREES WITH THE PLAN. I, DENVER BASS, DOCUMENTED THE ABOVE INFORMATION ACTING A SCRIBE FOR DR. WALSH. I HAVE REVIEWED THE ABOVE DOCUMENT, WRITTEN BY DENVER BASS, BAR ASSISTANT, AND I VERIFY THAT IT IS ACCURATE PROCEDURE CODES 12548 INJ TRIGGER POINT / MUSCL DISPOSITION & COMMUNICATION FOLLOW UP F/UP WITH COMP FIELD CASE MANAGER (REASON: W/C POST TPI SARAH LOW BACK) ELECTRONICALLY SIGNED BY PRADEEP WALSH MD, MD ON 08/10/2019 AT 11:08 AM EDT DISCLAIMER : THIS IS A VISIT SUMMARY EXTRACTED FROM THE [employer] CHART. IT IS NOT A COPY OF THE [employer] PROGRESS NOTE. RICK
== END ==
LOC: M PAIN 13:45
PROVIDERS: ATTEND Anesthesiology
DX: M79.18 Myalgia, other site (principal)

== ENCOUNTER → 2019-08-24 | Outpatient (CLI) | payer OTHER, BC ==
--- NOTE | 2019-08-28 02:07 | ECWPNPC ---
PATIENT NAME: TRUPTI ARNOLD : 1955 GENDER: MALE VISIT DATE: 08/24/2019 DISCHARGE DATE: 08/24/19 1128 VISIT LOCKED DATE TIME: PHYSICIAN: IRMA LAZO RESOURCE: IRMA LAZO REASON FOR APPOINTMENT 1. W/C POST TPI PAT DONE HISTORY OF PRESENT ILLNESS GENERAL: THIS IS A POST PROCEDURE FOLLOW-UP. THIS IS A WORK RELATED INJURY WITH DATE OF INJURY 1985. HAD BILATERAL TRIGGER POINT INJECTIONS TO THE LOWER BACK ON 08/08/2019. FEELS THOUGH THIS WAS HELPFUL FOR SOME OF HIS LOW BACK PAIN. CONTINUES TO HAVE PAIN IN THE LOWER BACK IS AGGRAVATED BY WALKING OR BENDING. REVIEWED MRI AND DISCUSSED TREATMENT OPTIONS. -. FALL RISK SCREENING: SCREENING :TWO OR MORE FALLS WITHOUT INJURY IN THE PAST YEAR PT STATES THAT HIS LEGS GIVE OUT, FALLEN AT HOME, NO INJURY PAIN SCREENING: PATIENT HAS A COMPLAINT OF ACUTE OR CHRONIC PAIN :YES LOCATION OF PAIN:LOW BACK INTENSITY OF PAIN (SCALE OF 1 TO 10):7 WHAT DOES YOUR PAIN FEEL LIKE:ACHING, BURNING, INTERMITTENT, SHOOTING, OTHER DURATION:RHYTHMIC, PERIODIC, INTERMITTENT PAIN IS INCREASED BY:ACTIVITIES PAIN IS DECREASED BY:OTHERS RESTING FOR A COUPLE OF HOURS NURSING NOTE: -. PAIN CENTER INTAKE QUESTIONS: NOTES: PT STATES THAT HE FEELS THAT SHOT WORKED FOR PAIN IN LOW BACK, PT STATES THAT HE WAS ABLE TO WALK BETTER, WOULD LIKE TO CONSIDER SHOTS WITH STEROIDS IN FUTURE. DO YOU HAVE A HISTORY OF MRSA? :NO DO YOU TAKE A BLOOD THINNERS? :NO DO YOU HAVE ANY BLEEDING DISORDERS? :NO ANY NEW NUMBNESS OR WEAKNESS IN YOUR LEGS OR ARMS? :NO ANY PACEMAKER,DEFIBRILLATOR, OR DORSAL COLUMN STIMULATOR? :NO DO YOU HAVE ANY RASHES OR OPEN SORES? :NO ARE YOU ALLERGIC TO IV DYE? :NO ARE YOU DIABETIC? :NO ANY NEW PROBLEMS WITH YOUR MEDICATIONS? :NO HAVE YOU RECEIVED A VACCINE IN THE PAST 30 DAYS? :NO DO YOU PLAN TO RECEIVE A VACCINE IN THE NEXT 21 DAYS? :NO DO YOU NEED ANY PRESCRIPTION? :NO DO YOU TAKE ANY IMMUNOSUPPRESSIVE MEDICATIONS? :NO IS THERE A CHANCE YOU COULD BE ? :NO ARE YOU BREAST FEEDING? :NO CURRENT MEDICATIONS TAKING LYRICA 75 MG CAPSULE 1 CAPSULE ORALLY TID TAKING VALSARTAN 160 MG TABLET 1 TABLET ORALLY ONCE A DAY TAKING ATORVASTATIN CALCIUM 40 MG TABLET 1 TABLET ORALLY ONCE A DAY TAKING LABETALOL HCL 200 MG TABLET 1 TABLET ORALLY TWICE A DAY TAKING SERTRALINE HCL 100 MG TABLET 1 TABLET ORALLY ONCE A DAY TAKING LEVOTHYROXINE SODIUM 25 MCG TABLET 1 TABLET IN THE MORNING ON AN EMPTY STOMACH ORALLY ONCE A DAY TAKING MECLIZINE HCL 12.5 MG TABLET 1 TABLETS NEEDED ORALLY TID PRN TAKING AMLODIPINE BESYLATE 5 MG TABLET 1 TABLET ORALLY ONCE A DAY TAKING MELOXICAM 7.5 MG TABLET 1 TABLET ORALLY ONCE A DAY NOT-TAKING ASPIR-81 NOT-TAKING VITAMIN D (CHOLECALCIFEROL) 50 MCG (1999) CAPSULE 1 CAPSULE ORALLY ONCE A DAY MEDICATION LIST REVIEWED AND RECONCILED WITH THE PATIENT PAST MEDICAL HISTORY HTN HYPOTHYROIDISM HIGH CHOLESTEROL ALLERGIES VICKS BABYRUB: ANAPHYLAXIS - ALLERGY MELON: ANAPHYLAXIS - ALLERGY SURGICAL HISTORY BACK SURGERY 1993 & 1996 5 CARDIAC STENTS 2016 4 SHOULDER SURGERIES AND 2 ROTATOR CUFF REPAIRS [id number] BILAT CARPAL TUNNEL RELEASE ABD HERNIA REPAIR CHOLECYSTECTOMY FAMILY HISTORY FATHER: MOTHER: 3 BROTHER(S) , 2 SISTER(S) . 3 SON(S) - HEALTHY. SOCIAL HISTORY GENERAL: TOBACCO USE ARE YOU A:NONSMOKER LATEX QUESTIONNAIRE LATEX ALLERGY : HAVE YOU EVER DEVELOPED ANY TYPE OF REACTION AFTER HANDLING LATEX PRODUCTS SUCH RUBBER GLOVES, CONDOMS, DIAPHRAGMS, BALLOONS, SOCKS, OR UNDERWEAR?NO LATEX ALLERGY : HAVE YOU EVER DEVELOPED ANY TYPE OF REACTION DURING OR AFTER DENTAL APPOINTMENT, VAGINAL/RECTAL EXAMINATION, SURGICAL PROCEDURE, OR ANY OTHER EXPOSURE?NO LATEX RISK : HAVE YOU EVER HAD ANY DIFFICULTY BREATHING OR HIVES AFTER EATING OR HANDLING ANY FRUITS, OR VEGETABLES; SUCH KIWI, BANANAS, STONE FRUITS, OR CHESTNUTSNO LATEX RISK : DO YOU HAVE A PREVIOUS PERSONAL HISTORY OF MORE THAN NINE SURGERIES, SPINA BIFIDA, OR REPEATED CATHERIZATIONS? NO LATEX RISK : ARE YOU FREQUENTLY EXPOSED TO LATEX PRODUCTS IN YOUR OCCUPATION?NO DATE ASKED : 08/23/2019 ALCOHOL SCREENING DID YOU HAVE A DRINK CONTAINING ALCOHOL IN THE PAST YEAR?NO POINTS0 INTERPRETATIONNEGATIVE RECREATIONAL DRUG USE DRUG USE?NO PATIENT DENIES ABUSE OR MISSUSED OF ANY MEDICATION DENIES PATIENT DENIES USE OF ANY ILLEGAL SUBSTANCE INCLUDING MARIJUANA OR COCAINE DENIES YAZIDISM [id number] LUTHERAN LANGUAGE LANGUAGES SPOKEN:GEORGIAN LEARNING BARRIERS / SPECIAL NEEDS BARRIERS TO LEARNING?NO HEARING IMPAIRED?NO VISION IMPAIRED?YES COGNITIVELY IMPAIRED?NO :CORRECTIVE LENSES READINESS TO LEARN?YES LEARNING PREFERENCES?NO LEARNING CAPABILITIES PRESENT?YES EMOTIONAL BARRIERS?NO SPECIAL DEVICES?NO DOMESTIC VIOLENCE DO YOU FEEL SAFE IN YOUR ENVIRONMENT?YES PAIN CLINIC PFS, CLERGY, PUBLIC HEALTH REFERRALS WAS THE PROVIDER NOTIFIED OF ANY PERTINENT INFO?YES HAS THE PATIENT BEEN EDUCATED REGARDING HIS/HER PLAN OF CARE?YES HAS THE PATIENT BEEN EDUCATED REGARDING PAIN, THE RISK FOR PAIN, THE IMPORTANCE OF EFFECTIVE PAIN MANAGEMENT, AND THE PAIN ASSESSMENT PROCESS?YES ADVANCE DIRECTIVE ADVANCE DIRECTIVE DISCUSSED WITH PATIENT:YES PT STATES THAT HE DOES NOT HAVE HCP AT THIS TIME, DECLINES ASSISTANCE WITH PAPERWORK. DS HOSPITALIZATION/MAJOR DIAGNOSTIC PROCEDURE SURGERIES REVIEW OF SYSTEMS CONSTITUTIONAL: ANY RECENT FEVER OR ILLNESS NO . CHILLS NO . GASTROENTEROLOGY: BOWEL INCONTINENCE NO . ANY NEW CHANGE IN BOWEL CONTROL? NO . ABDOMINAL PAIN NO . CONSTIPATION NO . GENITOURINARY: ANY NEW CHANGE IN BLADDER CONTROL? NO . IS THERE A CHANCE YOU COULD BE ? NO . URINARY INCONTINENCE NO . CARDIOLOGY: CHEST PRESSURE NO . CHEST PAIN NO . RESPIRATORY: COUGH NO . SHORTNESS OF BREATH NO . VITAL SIGNS WT 310.2 LBS, HT 70 IN, BMI 44.50 INDEX, BP 106/62 MM HG, HR 71 /MIN, RR 18 /MIN, TEMP 98.1 F, OXYGEN SAT % 95%, SAFE IN ENV? (Y/N) YES, NA INITIALS AW 1051, REVIEWED BY: JAMIE. EXAMINATION GENERAL EXAMINATION: GENERAL AWAKE,ALERT ,PLEAASANT . PSYCH AFFECT NORMAL . LUNGS: LUNG TORRES ARE CLEAR TO AUSCULTATION BILATERALLY. GOOD MOVEMENT OF AIR . HEART: S1, S2 IN A REGULAR RATE AND RHYTHM. NO SIGNIFICANT MURMURS, RUBS OR GALLOPS NOTED . MUSCULOSKELETAL: MUSCLE STRENGTH TESTING 4/5 BILATERAL LOWER EXTREMITIES. LUMBAR:SPECIFIC POINT TENDERNESS NOTED OVER BILATERAL SIJ. POSITIVE FRANCO'S TESTING BILATERAL LOWER EXTREMITIES. DIAGNOSTIC TESTS REVIEWED MRI L/S SPINE-06/01/2019. 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 (PRIMARY) MYALGIA, OTHER SITE - M79.18 LUMBAR POST-LAMINECTOMY SYNDROME - M96.1 CARDIAC CONDITION--HISTORY OF 5 STENTS. TREATMENT MYALGIA, OTHER SITE NOTES: WORKMEN'S COMP REQUEST BILATERAL SIJ. PROCEDURES PN WORKMANS' COMP OPINION IN YOUR OPINION, WAS THE INCIDENT THAT THE PATIENT DESCRIBED THE COMPETENT MEDICAL CAUSE OF THIS INJURY/ILLNESS? YES ARE THE PATIENT'S COMPLAINTS CONSISTENT WITH HIS/HER HISTORY OF THE INJURY/ILLNESS? YES IS THE PATIENT'S HISTORY OF THE INJURY/ILLNESS CONSISTENT WITH YOUR OBJECTIVE FINDING? YES WHAT IS THE PERCENTAGE OF TEMPORARY IMPAIRMENT? MODERATE TO MARKED = 66.7% IS THE PATIENT WORKING? NO DOCTOR ON SITE: PRADEEP CUEVAS MD PREVENTIVE MEDICINE PAIN CLINIC TEACHING: PROCEDURE TEACHING CLAUDIA THOMAS 08/24/2019 11:27:11 AM > SACROILIAC JOINT INFORMATION PRINTED AND PROCEDURE FOR INJECTIONS REVIEWED WITH PATIENT. PATIENT VERBLAIZES UNDERSTANDING OF PROCEDURE AND OF PRE PROCEDURE INSTRUCTIONS REVIEWED.. PROCEDURE CODES FA211 ESTABILISHED PATIENT [facility] CHARGE DISPOSITION & COMMUNICATION FOLLOW UP POST (REASON: WORKMEN'S COMP REQUEST BILATERAL SIJ) ELECTRONICALLY SIGNED BY SHAHAB IRIZARRY ON 08/27/2019 AT 08:47 AM EDT DISCLAIMER : THIS IS A VISIT SUMMARY EXTRACTED FROM THE [employer] CHART. IT IS NOT A COPY OF THE [employer] PROGRESS NOTE. RICK
== END ==
LOC: M PAIN 10:45
PROVIDERS: ATTEND Nurse Practitioner Family
DX: M46.1 Sacroiliitis, not elsewhere classified (principal); M79.18 Myalgia, other site; M96.1 Postlaminectomy syndrome, not elsewhere classified

== ENCOUNTER → 2019-09-18 | Outpatient (CLI) | payer OTHER, BC | LOC: M LABSMTC 09:34 | PROVIDERS: ATTEND Anesthesiology | DX: Z20.828 Contact with and (suspected) exposure to other viral communicable diseases (principal) | CPT/HCPCS: C9803; U0003 ==

== ENCOUNTER → 2019-09-21 | Outpatient (CLI) | payer OTHER, BC ==
[~2019-09-21] MED LIST changes: -BUPIVACAINE HCL 0.25% 10ML VIAL As Ordered ONE; +ISOVUE-M 300 61% 15ML VIAL As Ordered ONE; +LIDOCAINE 1% SDV 30ML VIAL As Ordered ONE; +NORCO, ANEXSIA 5/325MG TABLET (HYDROcodone/ACETAMINOPHEN) As Ordered ONE; +TRIAMCINOLONE ACETONIDE SUSP 40 MG/ML VIAL (J3301) As Ordered ONE; +diazePAM 2 MG TAB As Ordered ONE
--- NOTE | 2019-09-22 12:27 | REP ---
C-ARM VIEWS SACROILIAC JOINTS: Multiple C-arm views of bilateral sacroiliac joints performed during bilateral sacroiliac joint injection by Dr. Jon. [place] are seen along both sacroiliac joints. 44 seconds fluoroscopy time utilized. Electronically Signed by Vince Soto MD 09/23/2019 11:31 P
--- NOTE | 2019-09-25 01:32 | ECWPNPC ---
PATIENT NAME: TRUPTI ARNOLD : 1955 GENDER: MALE VISIT DATE: 09/21/2019 DISCHARGE DATE: 09/21/19 1434 VISIT LOCKED DATE TIME: PHYSICIAN: PRADEEP WALSH MD RESOURCE: PRADEEP WALSH MD REASON FOR APPOINTMENT 1. W/C BILAT SIJ HISTORY OF PRESENT ILLNESS GENERAL: -. FALL RISK SCREENING: SCREENING :TWO OR MORE FALLS WITH INJURY IN THE PAST YEAR SLIPPED ON ICE, FALLING ON SHOULDER, REINJURED REQUIRING SURGERY PAIN SCREENING: PATIENT HAS A COMPLAINT OF ACUTE OR CHRONIC PAIN :YES LOCATION OF PAIN:LOW BACK, LEFT HIP, RIGHT HIP, LEG(S) NUMBNESS IN FEET INTENSITY OF PAIN (SCALE OF 1 TO 10):8 REPORTS PAIN LEVEL OF 4-10 IN LAST MONTH WHAT DOES YOUR PAIN FEEL LIKE:ACHING, BURNING, SHARP, STABBING, TENDER, THROBBING, SORE, SHOOTING DURATION:CONSTANT WORSE AT NIGHT PAIN IS INCREASED BY:ACTIVITIES, PROLONGED STANDING PAIN IS DECREASED BY:USE OF PAIN MEDICATIONS REST, PAIN MEDS TAKE THE EDGE OFF NURSING NOTE: -. PAIN CENTER INTAKE QUESTIONS: DO YOU HAVE A HISTORY OF MRSA? :NO DO YOU TAKE A BLOOD THINNERS? :NO DO YOU HAVE ANY BLEEDING DISORDERS? :NO ANY NEW NUMBNESS OR WEAKNESS IN YOUR LEGS OR ARMS? :NO ANY PACEMAKER,DEFIBRILLATOR, OR DORSAL COLUMN STIMULATOR? :NO DO YOU HAVE ANY RASHES OR OPEN SORES? :YES SCRATCHES FROM DOG ARE YOU ALLERGIC TO IV DYE? :NO ARE YOU DIABETIC? :NO ANY NEW PROBLEMS WITH YOUR MEDICATIONS? :NO HAVE YOU RECEIVED A VACCINE IN THE PAST 30 DAYS? :NO DO YOU PLAN TO RECEIVE A VACCINE IN THE NEXT 21 DAYS? :NO DO YOU TAKE ANY IMMUNOSUPPRESSIVE MEDICATIONS? :NO ANY HISTORY OF SEIZURES? :NO ANY HISTORY OF CARDIAC ISSUES OR EVENTS? :YES HAS 5 STENTS 2015, NO LONGER ON BLOOD THINNERS DO YOU HAVE SLEEP APNEA? :YES DO YOU WEAR A CPAP?NO PT REPORTS HE WAS ON CPAP, DISCONTINUED TEMPORARILY DUE TO SKIN INFECTION AT THE SITE OF THE STRAPS/DEVICE ANY RECENT HEAD INJURY? :NO DO YOU HAVE ANY NEW INFECTIONS? :NO IS THERE A CHANCE YOU COULD BE ? :NO ARE YOU BREAST FEEDING? :NO WHEN DID YOU LAST EAT? : -09/20/19 1800 WHEN DID YOU LAST DRINK? : -7/10 1100 WHAT DID YOU LAST DRINK? : -WATER NAME OF PERSON DRIVING YOU HOME? : -SON DO YOU HAVE ANY OTHER QUESTIONS OR CONCERNS? : - CURRENT MEDICATIONS TAKING LYRICA 75 MG CAPSULE 1 CAPSULE ORALLY TID, NOTES: 09/21 799 TAKING VALSARTAN 160 MG TABLET 1 TABLET ORALLY ONCE A DAY, NOTES: 09/21 799 TAKING ATORVASTATIN CALCIUM 40 MG TABLET 1 TABLET ORALLY ONCE A DAY, NOTES: 09/19 2099 TAKING LABETALOL HCL 200 MG TABLET 1 TABLET ORALLY TWICE A DAY, NOTES: 09/21 799 TAKING SERTRALINE HCL 100 MG TABLET 1 TABLET ORALLY ONCE A DAY, NOTES: 09/21 799 TAKING LEVOTHYROXINE SODIUM 25 MCG TABLET 1 TABLET IN THE MORNING ON AN EMPTY STOMACH ORALLY ONCE A DAY, NOTES: 09/21 799 TAKING MECLIZINE HCL 12.5 MG TABLET 1 TABLETS NEEDED ORALLY TID PRN, NOTES: 09/19 TAKING AMLODIPINE BESYLATE 5 MG TABLET 1 TABLET ORALLY ONCE A DAY, NOTES: 09/21 1999 TAKING ASPIR-81 TAKING FUROSEMIDE 40 MG TABLET 1 TABLET ORALLY ONCE A DAY NOT-TAKING MELOXICAM 7.5 MG TABLET 1 TABLET ORALLY ONCE A DAY NOT-TAKING VITAMIN D (CHOLECALCIFEROL) 50 MCG (1999) CAPSULE 1 CAPSULE ORALLY ONCE A DAY MEDICATION LIST REVIEWED AND RECONCILED WITH THE PATIENT PAST MEDICAL HISTORY HTN HYPOTHYROIDISM HIGH CHOLESTEROL ALLERGIES VICKS BABYRUB: ANAPHYLAXIS - ALLERGY MELON: ANAPHYLAXIS - ALLERGY SURGICAL HISTORY BACK SURGERY 1993 & 1996 5 CARDIAC STENTS 2015 4 SHOULDER SURGERIES AND 2 ROTATOR CUFF REPAIRS [phone] BILAT CARPAL TUNNEL RELEASE ABD HERNIA REPAIR CHOLECYSTECTOMY FAMILY HISTORY FATHER: MOTHER: 3 BROTHER(S) , 2 SISTER(S) . 3 SON(S) - HEALTHY. SOCIAL HISTORY GENERAL: TOBACCO USE ARE YOU A:NONSMOKER LATEX QUESTIONNAIRE LATEX ALLERGY : HAVE YOU EVER DEVELOPED ANY TYPE OF REACTION AFTER HANDLING LATEX PRODUCTS SUCH RUBBER GLOVES, CONDOMS, DIAPHRAGMS, BALLOONS, SOCKS, OR UNDERWEAR?NO LATEX ALLERGY : HAVE YOU EVER DEVELOPED ANY TYPE OF REACTION DURING OR AFTER DENTAL APPOINTMENT, VAGINAL/RECTAL EXAMINATION, SURGICAL PROCEDURE, OR ANY OTHER EXPOSURE?NO DATE ASKED : 08/23/2019 LATEX RISK : HAVE YOU EVER HAD ANY DIFFICULTY BREATHING OR HIVES AFTER EATING OR HANDLING ANY FRUITS, OR VEGETABLES; SUCH KIWI, BANANAS, STONE FRUITS, OR CHESTNUTSNO LATEX RISK : DO YOU HAVE A PREVIOUS PERSONAL HISTORY OF MORE THAN NINE SURGERIES, SPINA BIFIDA, OR REPEATED CATHERIZATIONS? NO LATEX RISK : ARE YOU FREQUENTLY EXPOSED TO LATEX PRODUCTS IN YOUR OCCUPATION?NO ALCOHOL SCREENING DID YOU HAVE A DRINK CONTAINING ALCOHOL IN THE PAST YEAR?NO POINTS0 INTERPRETATIONNEGATIVE RECREATIONAL DRUG USE DRUG USE?NO PATIENT DENIES ABUSE OR MISSUSED OF ANY MEDICATION DENIES PATIENT DENIES USE OF ANY ILLEGAL SUBSTANCE INCLUDING MARIJUANA OR COCAINE DENIES DRUZE [id number] MANDAEN LANGUAGE LANGUAGES SPOKEN:TURKMEN LEARNING BARRIERS / SPECIAL NEEDS BARRIERS TO LEARNING?NO HEARING IMPAIRED?NO VISION IMPAIRED?YES COGNITIVELY IMPAIRED?NO :CORRECTIVE LENSES READINESS TO LEARN?YES LEARNING PREFERENCES?NO LEARNING CAPABILITIES PRESENT?YES EMOTIONAL BARRIERS?NO SPECIAL DEVICES?NO DOMESTIC VIOLENCE DO YOU FEEL SAFE IN YOUR ENVIRONMENT?YES PAIN CLINIC PFS, CLERGY, PUBLIC HEALTH REFERRALS WAS THE PROVIDER NOTIFIED OF ANY PERTINENT INFO?YES HAS THE PATIENT BEEN EDUCATED REGARDING HIS/HER PLAN OF CARE?YES HAS THE PATIENT BEEN EDUCATED REGARDING PAIN, THE RISK FOR PAIN, THE IMPORTANCE OF EFFECTIVE PAIN MANAGEMENT, AND THE PAIN ASSESSMENT PROCESS?YES ADVANCE DIRECTIVE ADVANCE DIRECTIVE DISCUSSED WITH PATIENT:YES PT STATES THAT HE DOES NOT HAVE HCP AT THIS TIME, DECLINES ASSISTANCE WITH PAPERWORK. DS HOSPITALIZATION/MAJOR DIAGNOSTIC PROCEDURE SURGERIES VITAL SIGNS WT 306.8 LBS, HT 70 IN, BMI 44.02 INDEX, BP 144/80 MM HG, HR 68 /MIN, RR 18 /MIN, TEMP 97.9 F, OXYGEN SAT % 97%, SAFE IN ENV? (Y/N) YES, NA INITIALS SC 12:51, REVIEWED BY: SCARLETT. 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 (PRIMARY) SACROILIAC JOINT DYSFUNCTION - M53.3 TREATMENT BILATERAL SACROILIITIS [facility] FLUORO GUIDANCE (PAIN)[id number] SACROILIAC JOINT DYSFUNCTION [facility] GUIDANCE (PAIN)[id number] PROCEDURES PAIN NURSING RECORD PRE-PROCEDURE IV SITE RIGHT ANTECUBITAL SALINE LOCK, IV STARTED # 22 , IV STARTED BY: Pete ARREDONDO RN, IV ATTEMPTS 1 , PRE-PROCEDURE ORAL MEDICATIONS VALIUM 2 MG AND HYDROCODONE/ACETAMINOPHEN 5/325 MG VERIFIED WITH HAILEY BENTLEY RN, GIVEN BY PAIGE ARREDONDO AT 1330 PROCEDURE IN ROOM 1345, PHYSICIAN IN ROOM 1359, START 1405SMALL BLISTER NOTED ON LEFT SACRAL AREA, NOT OPEN.. DR WALSH EVALUATED THIS, HE WILL PROCEED BUT WILL AVOID THAT AREA., FINISH 1410 FLUROSCOPY TIME 44 SECONDS, PHYSICIAN OUT OF ROOM 1412, OUT OF ROOM 1420 PT BACK TO RECOVERY AREA VIA STRETCHER. ASSISTED OOB, PT DENIES ANY NUMBNESS OR WEAKNESS OF BILATERAL LEGS. GAIT STEADY, STEROID KENALOG , O2 RA , ECG NORMAL SINUS , PATIENT SHIELDED YES , SAFETY STRAP YES , PREP CHLOROPREP BY HAILEY BENTLEY, DRESSING TEGADERM LOC: 1. ALERT, ORIENTED RESP: 1. REGULAR, NO DYSPNEA COLOR: 1. PINK SKIN: 1. WARM, DRY POSITION: 1. PRONE VITALS: 1350 150/78 69-18 94% 1405 143/75 69-18 94% 1415 153/78 68-18 96% 1430 130/72 67-18 96% DISCHARGE: POST PAIN 2, DRESSING SITE DRY AND INTACT, IV DISCONTINUED, SITE CLEAR, CATHETER INTACT, GAIT STEADY, TEACHING COMPLETED, PATIENT ACKNOWLEDGES UNDERSTANDING YES, PATIENT DISCHARGED AT 1435 PN WORKMANS' COMP OPINION IN YOUR OPINION, WAS THE INCIDENT THAT THE PATIENT DESCRIBED THE COMPETENT MEDICAL CAUSE OF THIS INJURY/ILLNESS? YES ARE THE PATIENT'S COMPLAINTS CONSISTENT WITH HIS/HER HISTORY OF THE INJURY/ILLNESS? YES IS THE PATIENT'S HISTORY OF THE INJURY/ILLNESS CONSISTENT WITH YOUR OBJECTIVE FINDING? YES WHAT IS THE PERCENTAGE OF TEMPORARY IMPAIRMENT? MODERATE TO MARKED = 66.7% . IS THE PATIENT WORKING? NO . DOCTOR ON SITE: PRADEEP CUEVAS MD PN SI PRE PROCEDURE DIAGNOSIS SACROILIITIS, SACROILIAC JOINT DYSFUNCTION POST PROCEDURE DIAGNOSIS SACROILIITIS, SACROILIAC JOINT DYSFUNCTION PROCEDURE BILATERAL SACROILIAC JOINT BLOCK SURGEON DR. PRADEEP WALSH CARDIO TECH NONE ANESTHESIA LOCAL PRE PROCEDURE NOTE THE PATIENT WITH HISTORY OF CHRONIC LOW BACK PAIN. I EVALUATED THE PATIENT AND REVIEWED THE CHART. I WENT OVER THE RISKS, ALTERNATIVES, AND BENEFITS ASSOCIATED WITH THIS PROCEDURE. I DISCUSSED THAT THE USE OF STEROIDS MAY CONTRIBUTE TO IMMUNOSUPPRESSION OF THE PATIENT'S BODY AGAINST INFECTIONS SUCH COVID-19. THE PATIENT IS AWARE OF THE POTENTIAL COMPLICATIONS ASSOCIATED WITH THIS VIRUS, INCLUDING, BUT NOT LIMITED TO, . I DISCUSSED THE USE OF DEXAMETHASONE INSTEAD OF KENALOG; HOWEVER, THE PATIENT WOULD LIKE TO MOVE FORWARD WITH KENALOG. THE PATIENT WOULD LIKE TO PROCEED AND GAVE CONSENT TO PERFORM THE PROCEDURE. THE PATIENT DENIES UNEXPLAINABLE WEIGHT LOSS, FEVER, CHILLS, OR NEW CHANGES IN URINARY OR BOWEL CONTROL. THE PATIENT IS COVID-19 NEGATIVE DESCRIPTION OF PROCEDURE THE PATIENT WAS BROUGHT TO THE PROCEDURE ROOM AND PLACED IN THE PRONE POSITION. THE LUMBOSACRAL AREA WAS CLEANED WITH CHLORAPREP SOLUTION AND DRAPED ASEPTICALLY. THE PROCEDURE WAS DONE UNDER STERILE CONDITIONS. A TIMEOUT WAS PERFORMED WHERE LATERALITY AND THE SITE OF THE PROCEDURE WERE CHECKED AND CONFIRMED WITH EVERYONE IN THE ROOM. UNDER FLUOROSCOPIC GUIDANCE, TARGET POINT WAS SELECTED AT THE LOWER BORDER OF THE LEFT AND RIGHT SACROILIAC JOINT. TARGET POINT WAS SELECTED AFTER MEDIAL ROTATION AND TILT OF THE MAGNIFIER OF THE C-ARM. LIDOCAINE WAS USED TO NUMB THE SKIN AND SUBCUTANEOUS TISSUE BELOW IT. A SPINAL NEEDLE, 22-GAUGE, WAS ADVANCED UNDER FLUOROSCOPIC GUIDANCE AND FOLLOWING PATIENT FEEDBACK UNTIL THE TARGET AREA WAS REACHED. THE POSITION OF THE NEEDLE WAS VERIFIED WITH AP AND LATERAL VIEWS. AFTER PROPER POSITION OF THE NEEDLE WAS ACHIEVED, ISOVUE-M DYE 30%, 0.25 ML, WAS INJECTED SHOWING ADEQUATE SPREAD OF THE DYE. KENALOG 20 MG WAS THEN INJECTED IN EACH JOINT. THEN, A SOLUTION OF 3 ML OF BUPIVACAINE 0.125% WAS USED TO FLUSH THE SITE. THE MEDICATIONS WERE VERIFIED WITH THE NURSE. THERE WAS NO EVIDENCE OF BLOOD, PARESTHESIA OR CEREBROSPINAL FLUID DURING THE PROCEDURE. THE PATIENT WAS SENT TO THE RECOVERY ROOM. THE PATIENT WAS MOVING THE EXTREMITIES AND DOING WELL. THERE WERE NO COMPLICATIONS DURING THE PROCEDURE. ESTIMATED BLOOD LOSS WAS LESS THAN 5 ML. FLUOROSCOPY TIME WAS 44 SECONDS POST PROCEDURE NOTE THE PROCEDURE DONE WAS DISCUSSED WITH THE PATIENT. THE PATIENT WILL BE SEEN IN A FOLLOW UP IN THE NEXT FEW WEEKS. I AM LOOKING FOR LONG LASTING PAIN RELIEF FOR THE PATIENT WITH THIS INTERVENTION. INSTRUCTIONS WERE GIVEN, QUESTIONS WERE ANSWERED, AND THE PATIENT EXPRESSED UNDERSTANDING AND AGREES WITH THE PLAN. THE PATIENT IS AWARE TO STAY HOME FOR THE NEXT WEEK, IF POSSIBLE, DUE TO COVID-19. I, DENVER BASS, DOCUMENTED THE ABOVE INFORMATION ACTING A SCRIBE FOR DR. WALSH. I HAVE REVIEWED THE ABOVE DOCUMENT, WRITTEN BY DENVER BASS, PATIENT CARE, AND I VERIFY THAT IT IS ACCURATE PROCEDURE CODES 75298 INJECT SACROILIAC JOINT, MODIFIERS: 50 DISPOSITION & COMMUNICATION FOLLOW UP F/UP WITH SCHOOL MANAGER (REASON: POST SARAH SIJ) ELECTRONICALLY SIGNED BY PRADEEP WALSH MD, MD ON 09/24/2019 AT 04:58 PM EDT DISCLAIMER : THIS IS A VISIT SUMMARY EXTRACTED FROM THE [employer] CHART. IT IS NOT A COPY OF THE [employer] PROGRESS NOTE. PRABHAD
== END ==
LOC: M PAIN 12:00
PROVIDERS: ATTEND Anesthesiology
DX: M46.1 Sacroiliitis, not elsewhere classified (principal); M53.3 Sacrococcygeal disorders, not elsewhere classified
CPT/HCPCS: G0260; J3301; Q9967

== ENCOUNTER → 2019-12-20 | Outpatient (CLI) | payer OTHER, BC ==
--- NOTE | 2019-12-24 10:26 | ECWPNPC ---
PATIENT NAME: TRUPTI ARNOLD : 1955 GENDER: MALE VISIT DATE: 12/20/2019 DISCHARGE DATE: 12/20/19 1541 VISIT LOCKED DATE TIME: PHYSICIAN: IRMA LAZO RESOURCE: IRMA LAZO REASON FOR APPOINTMENT 1. SCIATICA HISTORY OF PRESENT ILLNESS GENERAL: HERE FOR FOLLOW-UP OF CHRONIC LOW BACK PAIN. THIS IS A WORK RELATED INJURY WITH DATE OF INJURY AUGUST 1985. HISTORY OF LUMBAR SURGERY X2 IN 1996. PATIENT IS REPORTING AN INCREASE IN HIS LEG SYMPTOMS OF PAIN AND WEAKNESS LEFT GREATER THAN RIGHT. REVIEWED MRI OF THE LS-SPINE. DISCUSSED TREATMENT OPTIONS. RATING PAIN LEVEL A 3/10 VAS. -. FALL RISK SCREENING: SCREENING :TWO OR MORE FALLS WITHOUT INJURY IN THE PAST YEAR LEGS GIVE OUT ON PATIENT OCCASSIONALLY CAUSING HIM TO FALL. ONE FALL FROM SLIPPING ON ICE LAST WINTER AND HE INJURED HIS SHOULDER. PAIN SCREENING: PATIENT HAS A COMPLAINT OF ACUTE OR CHRONIC PAIN :YES LOCATION OF PAIN:LOW BACK, LEG(S), FEET INTENSITY OF PAIN (SCALE OF 1 TO 10):3 WHAT DOES YOUR PAIN FEEL LIKE:ACHING, INTERMITTENT, OTHER RADIATING DURATION:INTERMITTENT PAIN IS INCREASED BY:ACTIVITIES PAIN IS DECREASED BY:USE OF PAIN MEDICATIONS, OTHERS LYRICA, LAYING DOWN NURSING NOTE: -. PAIN CENTER INTAKE QUESTIONS: DO YOU HAVE A HISTORY OF MRSA? :NO DO YOU TAKE A BLOOD THINNERS? :NO DO YOU HAVE ANY BLEEDING DISORDERS? :NO ANY NEW NUMBNESS OR WEAKNESS IN YOUR LEGS OR ARMS? :NO ANY PACEMAKER,DEFIBRILLATOR, OR DORSAL COLUMN STIMULATOR? :NO DO YOU HAVE ANY RASHES OR OPEN SORES? :NO ARE YOU ALLERGIC TO IV DYE? :NO ARE YOU DIABETIC? :NO ANY NEW PROBLEMS WITH YOUR MEDICATIONS? :NO HAVE YOU RECEIVED A VACCINE IN THE PAST 30 DAYS? :NO DO YOU PLAN TO RECEIVE A VACCINE IN THE NEXT 21 DAYS? :NO DO YOU NEED ANY PRESCRIPTION? :NO DO YOU TAKE ANY IMMUNOSUPPRESSIVE MEDICATIONS? :NO IS THERE A CHANCE YOU COULD BE ? :NO ARE YOU BREAST FEEDING? :NO CURRENT MEDICATIONS TAKING LYRICA 75 MG CAPSULE 1 CAPSULE ORALLY TID TAKING VALSARTAN 160 MG TABLET 1 TABLET ORALLY ONCE A DAY TAKING ATORVASTATIN CALCIUM 40 MG TABLET 1 TABLET ORALLY ONCE A DAY TAKING LABETALOL HCL 200 MG TABLET 1 TABLET ORALLY TWICE A DAY TAKING SERTRALINE HCL 100 MG TABLET 1 TABLET ORALLY ONCE A DAY TAKING LEVOTHYROXINE SODIUM 25 MCG TABLET 1 TABLET IN THE MORNING ON AN EMPTY STOMACH ORALLY ONCE A DAY TAKING MECLIZINE HCL 12.5 MG TABLET 1 TABLETS NEEDED ORALLY TID PRN TAKING AMLODIPINE BESYLATE 5 MG TABLET 1 TABLET ORALLY ONCE A DAY TAKING ASPIR-81 1 TAB DAILY TAKING FUROSEMIDE 40 MG TABLET 1 TABLET ORALLY ONCE A DAY TAKING POTASSIUM CHLORIDE 10 MEQ CAPSULE EXTENDED RELEASE 1 CAPSULE WITH FOOD ORALLY DAILY TAKING MAGNESIUM 200 MG TABLET 1 TABLET WITH A MEAL ORALLY ONCE A DAY NOT-TAKING MELOXICAM 7.5 MG TABLET 1 TABLET ORALLY ONCE A DAY NOT-TAKING VITAMIN D (CHOLECALCIFEROL) 50 MCG (1999) CAPSULE 1 CAPSULE ORALLY ONCE A DAY MEDICATION LIST REVIEWED AND RECONCILED WITH THE PATIENT PAST MEDICAL HISTORY HTN HYPOTHYROIDISM HIGH CHOLESTEROL CHRONIC LOW BACK PAIN ALLERGIES VICKS BABYRUB: ANAPHYLAXIS - ALLERGY MELON: ANAPHYLAXIS - ALLERGY SURGICAL HISTORY BACK SURGERY 1993 & 1996 5 CARDIAC STENTS 2015 4 SHOULDER SURGERIES AND 2 ROTATOR CUFF REPAIRS [phone] BILAT CARPAL TUNNEL RELEASE ABD HERNIA REPAIR CHOLECYSTECTOMY FAMILY HISTORY FATHER: MOTHER: 3 BROTHER(S) , 2 SISTER(S) . 3 SON(S) - HEALTHY. SOCIAL HISTORY GENERAL: TOBACCO USE ARE YOU A:NONSMOKER LATEX QUESTIONNAIRE LATEX ALLERGY : HAVE YOU EVER DEVELOPED ANY TYPE OF REACTION AFTER HANDLING LATEX PRODUCTS SUCH RUBBER GLOVES, CONDOMS, DIAPHRAGMS, BALLOONS, SOCKS, OR UNDERWEAR?NO LATEX ALLERGY : HAVE YOU EVER DEVELOPED ANY TYPE OF REACTION DURING OR AFTER DENTAL APPOINTMENT, VAGINAL/RECTAL EXAMINATION, SURGICAL PROCEDURE, OR ANY OTHER EXPOSURE?NO LATEX RISK : HAVE YOU EVER HAD ANY DIFFICULTY BREATHING OR HIVES AFTER EATING OR HANDLING ANY FRUITS, OR VEGETABLES; SUCH KIWI, BANANAS, STONE FRUITS, OR CHESTNUTSNO LATEX RISK : DO YOU HAVE A PREVIOUS PERSONAL HISTORY OF MORE THAN NINE SURGERIES, SPINA BIFIDA, OR REPEATED CATHERIZATIONS? NO LATEX RISK : ARE YOU FREQUENTLY EXPOSED TO LATEX PRODUCTS IN YOUR OCCUPATION?NO DATE ASKED : 12/20/2019 ALCOHOL SCREENING DID YOU HAVE A DRINK CONTAINING ALCOHOL IN THE PAST YEAR?NO POINTS0 INTERPRETATIONNEGATIVE RECREATIONAL DRUG USE DRUG USE?NO PATIENT DENIES ABUSE OR MISSUSED OF ANY MEDICATION DENIES PATIENT DENIES USE OF ANY ILLEGAL SUBSTANCE INCLUDING MARIJUANA OR COCAINE DENIES MORAVIAN [id number] MANDAEN LANGUAGE LANGUAGES SPOKEN:LAO LEARNING BARRIERS / SPECIAL NEEDS CHANGE FROM LAST VISIT?NO BARRIERS TO LEARNING?NO HEARING IMPAIRED?NO VISION IMPAIRED?YES :CORRECTIVE LENSES COGNITIVELY IMPAIRED?NO READINESS TO LEARN?YES LEARNING PREFERENCES?NO LEARNING CAPABILITIES PRESENT?YES EMOTIONAL BARRIERS?NO SPECIAL DEVICES?NO GREEN WARE CASTER NEEDED?NO DOMESTIC VIOLENCE DO YOU FEEL SAFE IN YOUR ENVIRONMENT?YES PAIN CLINIC PFS, CLERGY, PUBLIC HEALTH REFERRALS WAS THE PROVIDER NOTIFIED OF ANY PERTINENT INFO?YES HAS THE PATIENT BEEN EDUCATED REGARDING HIS/HER PLAN OF CARE?YES HAS THE PATIENT BEEN EDUCATED REGARDING PAIN, THE RISK FOR PAIN, THE IMPORTANCE OF EFFECTIVE PAIN MANAGEMENT, AND THE PAIN ASSESSMENT PROCESS?YES ADVANCE DIRECTIVE ADVANCE DIRECTIVE DISCUSSED WITH PATIENT:YES PT STATES THAT HE DOES NOT HAVE HCP AT THIS TIME, DECLINES ASSISTANCE WITH PAPERWORK. HOSPITALIZATION/MAJOR DIAGNOSTIC PROCEDURE SURGERIES REVIEW OF SYSTEMS CONSTITUTIONAL: ANY RECENT FEVER NO . CHILLS NO . GASTROENTEROLOGY: BOWEL INCONTINENCE NO . ANY NEW CHANGE IN BOWEL CONTROL? NO . HISTORY OF UNUSUAL ABDOMINAL PAIN OR CRAMPING NOT MENTIONED NO . CONSTIPATION NO . GENITOURINARY: ANY NEW CHANGE IN BLADDER CONTROL? NO . IS THERE A CHANCE YOU COULD BE ? NO . URINARY INCONTINENCE NO . CARDIOLOGY: NEW CHEST PRESSURE NO . HISTORY OF CHEST PAIN,IRREGULAR HEART BEAT NOT MENTIONED NO . RESPIRATORY: COUGH NO . SHORTNESS OF BREATH NO . VITAL SIGNS WT 302.8 LBS, HT 70 IN, BMI 43.44 INDEX, BP 150/81 MM HG, HR 76 /MIN, RR 18 /MIN, TEMP 97.4 F, OXYGEN SAT % 97%, SAFE IN ENV? (Y/N) YES, NA INITIALS SC 14:45, REVIEWED BY: SEYMOUR. EXAMINATION GENERAL EXAMINATION: GENERAL AWAKE,ALERT ,PLEASANT . PSYCH AFFECT NORMAL . LUNGS: LUNG TORRES ARE CLEAR TO AUSCULTATION BILATERALLY. GOOD MOVEMENT OF AIR . HEART: S1, S2 IN A REGULAR RATE AND RHYTHM. NO SIGNIFICANT MURMURS, RUBS OR GALLOPS NOTED . LUMBAR: PALPATION: + FOR PAIN OVER L/S SPINE. + FOR PAIN OVER L/S PARASPINALS. WELL-HEALED SURGICAL SCAR OVER L/S AXIS MODIFIED STRAIGHT LEG RAISE POSITIVE OVER LEFT LEG AT 45. DIAGNOSTIC TESTS REVIEWEDMRI L/S SPINE 2019 . ASSESSMENTS LUMBAR POST-LAMINECTOMY SYNDROME - M96.1 (PRIMARY) LUMBOSACRAL RADICULOPATHY - M54.17 TREATMENT LUMBAR POST-LAMINECTOMY SYNDROME NOTES: W/C REQUEST CAUDAL EPIDURAL. PROCEDURES PN WORKMANS' COMP OPINION IN YOUR OPINION, WAS THE INCIDENT THAT THE PATIENT DESCRIBED THE COMPETENT MEDICAL CAUSE OF THIS INJURY/ILLNESS? YES ARE THE PATIENT'S COMPLAINTS CONSISTENT WITH HIS/HER HISTORY OF THE INJURY/ILLNESS? YES IS THE PATIENT'S HISTORY OF THE INJURY/ILLNESS CONSISTENT WITH YOUR OBJECTIVE FINDING? YES WHAT IS THE PERCENTAGE OF TEMPORARY IMPAIRMENT? MODERATE TO MARKED = 66.7% IS THE PATIENT WORKING? NO DOCTOR ON SITE: PRADEEP CUEVAS MD PREVENTIVE MEDICINE PAIN CLINIC TEACHING: PROCEDURE TEACHING REVIEWED INFORMATION ON CAUDAL EPIDURAL PROCEDURE WITH PATIENT. ALSO REVIEWED PRE-PROCEDURE INSTRUCTIONS. PATIENT VERBALIZED AN UNDERSTANDING. ALPHONSE LOPEZ 12/20/2019 3:44:47 PM > . PROCEDURE CODES FA211 ESTABILISHED PATIENT [facility] FACILITY CHARGE DISPOSITION & COMMUNICATION FOLLOW UP POST (REASON: W/C REQUEST CAUDAL EPIDURAL) ELECTRONICALLY SIGNED BY SHAHAB IRIZARRY ON 12/24/2019 AT 10:09 AM EDT DISCLAIMER : THIS IS A VISIT SUMMARY EXTRACTED FROM THE [employer] CHART. IT IS NOT A COPY OF THE [employer] PROGRESS NOTE. RICK
== END ==
LOC: M PAIN 14:45
PROVIDERS: ATTEND Nurse Practitioner Family
DX: M96.1 Postlaminectomy syndrome, not elsewhere classified (principal); M54.17 Radiculopathy, lumbosacral region; I10 Essential (primary) hypertension; E03.9 Hypothyroidism, unspecified; Z95.5 Presence of coronary angioplasty implant and graft; Z91.018 Allergy to other foods; Z91.09 Other allergy status, other than to drugs and biological substances; E66.01 Morbid (severe) obesity due to excess calories; Z68.41 Body mass index [BMI] 40.0-44.9, adult; Z79.82 Long term (current) use of aspirin; Z79.899 Other long term (current) drug therapy

== ENCOUNTER → 2020-01-10 | Outpatient (CLI) | payer OTHER, BC | LOC: M LABSMTC 09:56 | PROVIDERS: ATTEND Anesthesiology | DX: Z11.59 Encounter for screening for other viral diseases (principal) ==

== ENCOUNTER → 2020-01-15 | Outpatient (CLI) | payer OTHER, BC ==
[~2020-01-15] MED LIST changes: -BUPIVACAINE HCL 0.25% 30ML VIAL As Ordered ONE; -TRIAMCINOLONE ACETONIDE SUSP 40 MG/ML VIAL (J3301) As Ordered ONE; +methylPREDNISolone SUSP 40MG/ML 1ML VIAL (DEPO MEDROL) As Ordered ONE
--- NOTE | 2020-01-16 10:16 | REP ---
INDICATION: CAUDAL EPIDURAL. COMPARISON: None. TECHNIQUE: Three views. 11.9 seconds of fluoroscopy time is reported. FINDINGS: Three last image hold fluoroscopically obtained spot radiograph(s) of the sacrum and coccyx document() needle position(s) and contrast injection associated with injection procedure. IMPRESSION: Procedural imaging. <Electronically signed by Royce Hall > 01/16/20 1018
--- NOTE | 2020-01-23 01:12 | ECWPNPC ---
PATIENT NAME: TRUPTI ARNOLD : 1955 GENDER: MALE VISIT DATE: 01/15/2020 DISCHARGE DATE: 01/15/20 1700 VISIT LOCKED DATE TIME: PHYSICIAN: PRADEEP WALSH MD RESOURCE: PRADEEP WALSH MD REASON FOR APPOINTMENT 1. W/C CAUDAL EPIDURAL HISTORY OF PRESENT ILLNESS GENERAL: -. FALL RISK SCREENING: SCREENING :ONE FALL WITHOUT INJURY IN THE PAST YEAR PAIN SCREENING: PATIENT HAS A COMPLAINT OF ACUTE OR CHRONIC PAIN :YES LOCATION OF PAIN:LOW BACK INTENSITY OF PAIN (SCALE OF 1 TO 10):8 WHAT DOES YOUR PAIN FEEL LIKE:ACHING, STABBING, THROBBING DURATION:CONTINOUS, CONSTANT PAIN IS INCREASED BY:ACTIVITIES PAIN IS DECREASED BY:USE OF PAIN MEDICATIONS, OTHERS LAYING DOWN TREATMENT/MEDICATIONS USED TO MANAGE PAIN:OPIOIDS LEVEL OF RELIEF FROM PAIN TREATMENTS IN THE PAST:50% PAIN HAS INTERFERED WITH THE FOLLOWING:BATHING/DRESSING, WALKING ABILITY, HOUSEWORK, SLEEP, TRANSPORTATION, TOILETING NURSING NOTE: -. PAIN CENTER INTAKE QUESTIONS: DO YOU HAVE A HISTORY OF MRSA? :NO DO YOU TAKE A BLOOD THINNERS? :NO DO YOU HAVE ANY BLEEDING DISORDERS? :NO ANY NEW NUMBNESS OR WEAKNESS IN YOUR LEGS OR ARMS? :YES LEGS ANY PACEMAKER,DEFIBRILLATOR, OR DORSAL COLUMN STIMULATOR? :NO DO YOU HAVE ANY RASHES OR OPEN SORES? :NO ARE YOU ALLERGIC TO IV DYE? :NO ARE YOU DIABETIC? :NO ANY NEW PROBLEMS WITH YOUR MEDICATIONS? :NO HAVE YOU RECEIVED A VACCINE IN THE PAST 30 DAYS? :NO DO YOU PLAN TO RECEIVE A VACCINE IN THE NEXT 21 DAYS? :NO DO YOU TAKE ANY IMMUNOSUPPRESSIVE MEDICATIONS? :NO ANY HISTORY OF SEIZURES? :NO ANY HISTORY OF CARDIAC ISSUES OR EVENTS? :YES HAS 5 STENTS DO YOU HAVE SLEEP APNEA? :YES DO YOU WEAR A CPAP?NO HX OF ANY RECENT HEAD INJURY? :NO DO YOU HAVE ANY NEW INFECTIONS? :NO IS THERE A CHANCE YOU COULD BE ? :NO ARE YOU BREAST FEEDING? :NO WHEN DID YOU LAST EAT? : -01/14 0630 WHEN DID YOU LAST DRINK? : -01/14 12N WHAT DID YOU LAST DRINK? : -WATER NAME OF PERSON DRIVING YOU HOME? : -SON MEGA DO YOU HAVE ANY OTHER QUESTIONS OR CONCERNS? : - CURRENT MEDICATIONS TAKING LYRICA 75 MG CAPSULE 1 CAPSULE ORALLY TID, NOTES: 01/14 500 TAKING VALSARTAN 160 MG TABLET 1 TABLET ORALLY ONCE A DAY, NOTES: 01/14 500 TAKING ATORVASTATIN CALCIUM 40 MG TABLET 1 TABLET ORALLY ONCE A DAY, NOTES: 01/14 500 TAKING LABETALOL HCL 200 MG TABLET 1 TABLET ORALLY TWICE A DAY, NOTES: 01/14 500 TAKING SERTRALINE HCL 100 MG TABLET 1 TABLET ORALLY ONCE A DAY, NOTES: 01/14 500 TAKING LEVOTHYROXINE SODIUM 25 MCG TABLET 1 TABLET IN THE MORNING ON AN EMPTY STOMACH ORALLY ONCE A DAY, NOTES: 01/14 500 TAKING MECLIZINE HCL 12.5 MG TABLET 1 TABLETS NEEDED ORALLY TID PRN, NOTES: NONE IN PAST WEEK TAKING AMLODIPINE BESYLATE 5 MG TABLET 1 TABLET ORALLY ONCE A DAY, NOTES: 499 TAKING ASPIR-81 1 TAB DAILY, NOTES: 01/14 500 TAKING FUROSEMIDE 40 MG TABLET 1 TABLET ORALLY ONCE A DAY PRN, NOTES: NONE IN PAST WEEK TAKING POTASSIUM CHLORIDE 10 MEQ CAPSULE EXTENDED RELEASE 1 CAPSULE WITH FOOD ORALLY DAILY, NOTES: WITH LASIX. NONE IN PAST WEEK TAKING MAGNESIUM 200 MG TABLET 1 TABLET WITH A MEAL ORALLY ONCE A DAY, NOTES: 01/14 500 NOT-TAKING MELOXICAM 7.5 MG TABLET 1 TABLET ORALLY ONCE A DAY NOT-TAKING VITAMIN D (CHOLECALCIFEROL) 50 MCG (1999) CAPSULE 1 CAPSULE ORALLY ONCE A DAY MEDICATION LIST REVIEWED AND RECONCILED WITH THE PATIENT PAST MEDICAL HISTORY HTN HYPOTHYROIDISM HIGH CHOLESTEROL CHRONIC LOW BACK PAIN ALLERGIES VICKS BABYRUB: ANAPHYLAXIS - ALLERGY MELON: ANAPHYLAXIS - ALLERGY SURGICAL HISTORY BACK SURGERY 1993 & 1996 5 CARDIAC STENTS 2015 4 SHOULDER SURGERIES AND 2 ROTATOR CUFF REPAIRS [id number] BILAT CARPAL TUNNEL RELEASE ABD HERNIA REPAIR CHOLECYSTECTOMY FAMILY HISTORY FATHER: MOTHER: 3 BROTHER(S) , 2 SISTER(S) . 3 SON(S) - HEALTHY. SOCIAL HISTORY GENERAL: TOBACCO USE ARE YOU A:NONSMOKER LATEX QUESTIONNAIRE LATEX ALLERGY : HAVE YOU EVER DEVELOPED ANY TYPE OF REACTION AFTER HANDLING LATEX PRODUCTS SUCH RUBBER GLOVES, CONDOMS, DIAPHRAGMS, BALLOONS, SOCKS, OR UNDERWEAR?NO LATEX ALLERGY : HAVE YOU EVER DEVELOPED ANY TYPE OF REACTION DURING OR AFTER DENTAL APPOINTMENT, VAGINAL/RECTAL EXAMINATION, SURGICAL PROCEDURE, OR ANY OTHER EXPOSURE?NO LATEX RISK : HAVE YOU EVER HAD ANY DIFFICULTY BREATHING OR HIVES AFTER EATING OR HANDLING ANY FRUITS, OR VEGETABLES; SUCH KIWI, BANANAS, STONE FRUITS, OR CHESTNUTSNO LATEX RISK : DO YOU HAVE A PREVIOUS PERSONAL HISTORY OF MORE THAN NINE SURGERIES, SPINA BIFIDA, OR REPEATED CATHERIZATIONS? NO LATEX RISK : ARE YOU FREQUENTLY EXPOSED TO LATEX PRODUCTS IN YOUR OCCUPATION?NO DATE ASKED : 12/20/2019 ALCOHOL SCREENING DID YOU HAVE A DRINK CONTAINING ALCOHOL IN THE PAST YEAR?NO POINTS0 INTERPRETATIONNEGATIVE RECREATIONAL DRUG USE DRUG USE?NO PATIENT DENIES ABUSE OR MISSUSED OF ANY MEDICATION DENIES PATIENT DENIES USE OF ANY ILLEGAL SUBSTANCE INCLUDING MARIJUANA OR COCAINE DENIES YARSANI [id number] YAZIDI LANGUAGE LANGUAGES SPOKEN:ANGUILLAN LEARNING BARRIERS / SPECIAL NEEDS CHANGE FROM LAST VISIT?NO BARRIERS TO LEARNING?NO HEARING IMPAIRED?NO VISION IMPAIRED?YES COGNITIVELY IMPAIRED?NO :CORRECTIVE LENSES READINESS TO LEARN?YES LEARNING PREFERENCES?NO LEARNING CAPABILITIES PRESENT?YES EMOTIONAL BARRIERS?NO SPECIAL DEVICES?NO WARDROBE MANAGER NEEDED?NO DOMESTIC VIOLENCE DO YOU FEEL SAFE IN YOUR ENVIRONMENT?YES PAIN CLINIC PFS, CLERGY, PUBLIC HEALTH REFERRALS WAS THE PROVIDER NOTIFIED OF ANY PERTINENT INFO?YES HAS THE PATIENT BEEN EDUCATED REGARDING HIS/HER PLAN OF CARE?YES HAS THE PATIENT BEEN EDUCATED REGARDING PAIN, THE RISK FOR PAIN, THE IMPORTANCE OF EFFECTIVE PAIN MANAGEMENT, AND THE PAIN ASSESSMENT PROCESS?YES ADVANCE DIRECTIVE ADVANCE DIRECTIVE DISCUSSED WITH PATIENT:YES PT STATES THAT HE DOES NOT HAVE HCP AT THIS TIME, DECLINES ASSISTANCE WITH PAPERWORK. HOSPITALIZATION/MAJOR DIAGNOSTIC PROCEDURE SURGERIES VITAL SIGNS WT 307.8 LBS, HT 70 IN, BMI 44.16 INDEX, BP 197/94 MM HG, REPEAT BP 142/70 R ARM MANUAL, HR 66 /MIN, RR 18 /MIN, TEMP 97.5 F, OXYGEN SAT % 96%, SAFE IN ENV? (Y/N) YES, NA INITIALS IN 13:51, REVIEWED BY: MFV/S VERIFIED. Vandana DOHERTY RN 01/15/20 1403.MANUAL RECHECK BY Vandana SAMUELS DEPUTY COUNTY CLERK 01/15/20 1410. EXAMINATION GENERAL EXAMINATION: THE PATIENT IS ALERT, ORIENTED TIMES THREE AND COOPERATIVE. HEART SHOWS REGULAR RHYTHM, NO MURMURS AND NO GALLOPS. LUNGS ARE CLEAR TO AUSCULTATION. ASSESSMENTS LUMBAR POST-LAMINECTOMY SYNDROME - M96.1 (PRIMARY), RISK: (NULL) TREATMENT LUMBAR POST-LAMINECTOMY SYNDROME [place] FLUORO GUIDE SPINE INJECTION (PAIN)[id number] MEDICATION: NORCO TABLET 5MG/325MG ORALLY (HYDROCODONE/ACETAMINOPHEN)ELKIN CANO RN 01/15/2020 3:10:31 PM > LOT#[id number], EXP 12/2020 ELKIN CANO RN 01/15/2020 3:10:36 PM > VERIFIED KEVIN DOHERTY 01/15/2020 3:13:53 PM > ADMINISTERED AT 1505 MEDICATION: VALIUM TAB 2MG ORALLY (DIAZEPAM)ELKIN CANO RN 01/15/2020 3:10:00 PM > LOT #[id number], EXP03/2020, VERIFIED KEVIN DOHERTY 01/15/2020 3:14:34 PM > ADMINISTERED AT 1505 SALINE LOCK NOTES: DISCHARGE INSTRUCTIONS REVIEWED WITH PATIENT INCLUDING THE IMPORTANCE OF SAFE AMBULATION. PATIENT VERBALIZED UNDERSTANDING. OTHERS NOTES: 01/14/20 SIMONA FOWLER, DEPUTY COUNTY CLERK. PROCEDURES PAIN NURSING RECORD PROCEDURE IN ROOM 1535, PHYSICIAN IN ROOM 1601, START 1608, FINISH 1612, PHYSICIAN OUT OF ROOM 1615, OUT OF ROOM 1619, STEROID DEPOMEDROL, O2 RA, ECG NORMAL SINUS, PATIENT SHIELDED YES, SAFETY STRAP YES, PREP CHLOROPREP BY Vandana DOHERTY RN, IV INFUSED N/A, DRESSING TEGADERM BY DR WALSH LOC: 1. ALERT, ORIENTED RESP: 1. REGULAR, NO DYSPNEA COLOR: 1. PINK SKIN: 1. WARM, DRY POSITION: 1. PRONE VITALS: KEVIN DOHERTY 01/15/2020 3:45 PM > 138/84 HR 63 18 92% KEVIN DOHERTY 01/15/2020 4:00:00 PM > 196/115 HR 67 18 92% KEVIN DOHERTY 01/15/2020 4:15:17 PM > 184/112 HR 68 18 94% KEVIN DOHERTY 01/15/2020 4:20:00PM > 156/96 HR 66 18 93% D/C V/S DISCHARGE: POST PAIN 2, DRESSING SITE DRY AND INTACT, IV DISCONTINUED, SITE CLEAR, CATHETER INTACT, GAIT STEADY, TEACHING COMPLETED, PATIENT ACKNOWLEDGES UNDERSTANDING YES, PATIENT DISCHARGED AT 1645 PN WORKMANS' COMP OPINION IN YOUR OPINION, WAS THE INCIDENT THAT THE PATIENT DESCRIBED THE COMPETENT MEDICAL CAUSE OF THIS INJURY/ILLNESS? YES ARE THE PATIENT'S COMPLAINTS CONSISTENT WITH HIS/HER HISTORY OF THE INJURY/ILLNESS? YES IS THE PATIENT'S HISTORY OF THE INJURY/ILLNESS CONSISTENT WITH YOUR OBJECTIVE FINDING? YES WHAT IS THE PERCENTAGE OF TEMPORARY IMPAIRMENT? MODERATE TO MARKED = 66.7% . IS THE PATIENT WORKING? NO . DOCTOR ON SITE: PRADEEP CUEVAS MD PN CAUDAL EPIDURALS PRE PROCEDURE DIAGNOSIS LUMBAR POST LAMINECTOMY PAIN SYNDROME POST PROCEDURE DIAGNOSIS LUMBAR POST LAMINECTOMY PAIN SYNDROME PROCEDURE CAUDAL EPIDURAL STEROID INJECTION SURGEON DR. PRADEEP WALSH PROJECT LEAD NONE ANESTHESIA LOCAL PRE PROCEDURE NOTE THE PATIENT HAS HISTORY OF CHRONIC LOW BACK PAIN. I EVALUATED THE PATIENT AND REVIEWED THE CHART. I WENT OVER THE RISKS, ALTERNATIVES, AND BENEFITS ASSOCIATED WITH THIS PROCEDURE. I DISCUSSED THAT THE USE OF STEROIDS MAY CONTRIBUTE TO IMMUNOSUPPRESSION OF THE PATIENT'S BODY AGAINST INFECTIONS SUCH COVID-19. THE PATIENT IS AWARE OF THE POTENTIAL COMPLICATIONS ASSOCIATED WITH THIS VIRUS, INCLUDING, BUT NOT LIMITED TO, . THE PATIENT WOULD LIKE TO PROCEED AND GIVE CONSENT TO PERFORMED THE PROCEDURE. THE PATIENT DENIES UNEXPLAINABLE WEIGHT LOSS, FEVER, CHILLS, OR NEW CHANGES IN URINARY OR BOWEL CONTROL. THE PATIENT IS COVID-19 NEGATIVE DESCRIPTION OF PROCEDURE THE PATIENT WAS BROUGHT TO THE PROCEDURE ROOM AND PLACED IN THE PRONE POSITION. THE LUMBOSACRAL AREA WAS CLEANED WITH BETADINE SOLUTION AND DRAPED ASEPTICALLY. THE PROCEDURE WAS DONE UNDER STERILE CONDITIONS. I CHECKED LATERALITY AND THE LEVEL WHERE THE PROCEDURE WAS GOING TO BE PERFORMED WITH THE PATIENT AND THE SUPPORTING STAFF AT THE MOMENT OF THE TIME OUT IN THE PROCEDURE ROOM. UNDER FLUOROSCOPIC GUIDANCE, THE TARGET POINT WAS SELECTED AT THE EPIDURAL SPACE BELOW THE SACROCOCCYGEAL LIGAMENT. I CONFIRMED AGAIN WITH EVERYONE IN THE ROOM THE LATERALITY OF THE TARGET AT 1610. LIDOCAINE 0.5% WAS USE TO NUMB THE SKIN AND THE SUBCUTANEOUS TISSUE BELOW IT. A SPINAL, 22-GAUGE, NEEDLE WAS ADVANCED UNDER FLUOROSCOPIC GUIDANCE AND FOLLOWING PATIENT FEEDBACK UNTIL THE EPIDURAL SPACE WAS REACHED 6 CM DEEP INTO THE SKIN BY THE LOSS OF RESISTANCE TECHNIQUE. ISOVUE M DYE 30%, 0.25 ML, WAS INJECTED SHOWING ADEQUATE SPREAD OF THE DYE. THEN, A SOLUTION OF 6 ML OF NORMAL SALINE WITH DEPO-MEDROL 60 MG WAS INJECTED SLOWLY FOLLOWING THE PATIENT FEEDBACK. THERE WAS NO EVIDENCE OF BLOOD, PARESTHESIA OR CEREBROSPINAL FLUID DURING THE PROCEDURE. THE PATIENT WAS SENT TO THE RECOVERY ROOM. THE PATIENT WAS MOVING THE EXTREMITIES AND DOING WELL. THERE WAS NO COMPLICATION DURING THE PROCEDURE. EBL LESS THAN 5 ML. FLUOROSCOPY TIME WAS 19 SECONDS POST PROCEDURE NOTE DEPENDING ON THE RESULT, CONSIDER DOING A CAUDAL AGAIN WITH A CATHETER. THE PATIENT WILL BE SEEN IN A FOLLOW UP IN THE NEXT FEW WEEKS. I AM LOOKING FOR LONG LASTING RELIEF FOR THE PATIENT WITH THIS INTERVENTION. INSTRUCTIONS WERE GIVEN, QUESTIONS WERE ANSWERED, AND THE PATIENT EXPRESSED UNDERSTANDING AND AGREES WITH THE PLAN. I, DENVER BASS, DOCUMENTED THE ABOVE INFORMATION ACTING A SCRIBE FOR DR. WALSH. I HAVE REVIEWED THE ABOVE DOCUMENT, WRITTEN BY DENVER BASS, HARVEST FIELD TICKETER, AND I VERIFY THAT IT IS ACCURATE PROCEDURE CODES 17609 LUMBAR/SACRAL W/ IMAGING FA211 ESTABILISHED PATIENT [facility] CHARGE DISPOSITION & COMMUNICATION FOLLOW UP FOLLOW UP WITH CABINET WORKER (REASON: W/C POST CAUDAL EPIDURAL ) ELECTRONICALLY SIGNED BY PRADEEP WALSH MD, MD ON 01/22/2020 AT 01:32 PM EST DISCLAIMER : THIS IS A VISIT SUMMARY EXTRACTED FROM THE [employer] CHART. IT IS NOT A COPY OF THE [employer] PROGRESS NOTE. RICK
== END ==
LOC: M PAIN 14:00
PROVIDERS: ATTEND Anesthesiology
DX: M96.1 Postlaminectomy syndrome, not elsewhere classified (principal); I10 Essential (primary) hypertension; E03.9 Hypothyroidism, unspecified; E78.00 Pure hypercholesterolemia, unspecified; Z79.82 Long term (current) use of aspirin; Z79.899 Other long term (current) drug therapy; Z88.8 Allergy status to other drugs, medicaments and biological substances; Z91.018 Allergy to other foods
CPT/HCPCS: 62323; G0463; J1030; Q9967

== ENCOUNTER → 2020-01-29 | Outpatient (CLI) | payer OTHER, BC ==
--- NOTE | 2020-02-01 02:39 | ECWPNPC ---
PATIENT NAME: TRUPTI ARNOLD : 1955 GENDER: MALE VISIT DATE: 01/29/2020 DISCHARGE DATE: 01/29/20 1009 VISIT LOCKED DATE TIME: PHYSICIAN: IRMA LAZO RESOURCE: IRMA LAZO REASON FOR APPOINTMENT 1. POST CAUDAL EPIDURAL HISTORY OF PRESENT ILLNESS GENERAL: THIS IS A POST PROCEDURE FOLLOW-UP. THIS IS A WORK RELATED INJURY WITH DATE OF INJURY 1985. HAD CAUDAL EPIDURAL STEROID INJECTION ON 01/15/2020. REPORTING IMPROVEMENT IN HIS PAIN POSTPROCEDURE. CONTINUES WITH BILATERAL LOW BACK PAIN LEFT GREATER THAN RIGHT ESPECIALLY WITH WALKING. REVIEWED MRI OF THE LS-SPINE. DISCUSSED THERAPEUTIC LUMBAR FACET BLOCK. CONTINUES TO HAVE PAIN IN THE LOWER BACK THAT IS AGGRAVATED BY WALKING OR BENDING. REVIEWED MRI AND DISCUSSED TREATMENT OPTIONS. WE ALSO BRIEFLY DISCUSSED POSSIBILITY OF DOING VERTIFLEX PROCEDURE. - -. FALL RISK SCREENING: SCREENING :TWO OR MORE FALLS WITH INJURY IN THE PAST YEAR LEFT SHOULDER INJURY PAIN SCREENING: PATIENT HAS A COMPLAINT OF ACUTE OR CHRONIC PAIN :YES LOCATION OF PAIN:LOW BACK INTENSITY OF PAIN (SCALE OF 1 TO 10):2 WHAT DOES YOUR PAIN FEEL LIKE:SHARP, THROBBING DURATION:INTERMITTENT PAIN IS INCREASED BY:ACTIVITIES PAIN IS DECREASED BY:OTHERS LAYING DOWN LEVEL OF RELIEF FROM PAIN TREATMENTS IN THE PAST:50% PAIN HAS INTERFERED WITH THE FOLLOWING:BATHING/DRESSING, WALKING ABILITY, HOUSEWORK, SLEEP, TRANSPORTATION, TOILETING NURSING NOTE: -. PAIN CENTER INTAKE QUESTIONS: DO YOU HAVE A HISTORY OF MRSA? :NO DO YOU TAKE A BLOOD THINNERS? :NO DO YOU HAVE ANY BLEEDING DISORDERS? :NO ANY NEW NUMBNESS OR WEAKNESS IN YOUR LEGS OR ARMS? :NO ANY PACEMAKER,DEFIBRILLATOR, OR DORSAL COLUMN STIMULATOR? :NO DO YOU HAVE ANY RASHES OR OPEN SORES? :NO ARE YOU ALLERGIC TO IV DYE? :NO ARE YOU DIABETIC? :NO ANY NEW PROBLEMS WITH YOUR MEDICATIONS? :NO HAVE YOU RECEIVED A VACCINE IN THE PAST 30 DAYS? :NO DO YOU PLAN TO RECEIVE A VACCINE IN THE NEXT 21 DAYS? :NO DO YOU NEED ANY PRESCRIPTION? :NO DO YOU TAKE ANY IMMUNOSUPPRESSIVE MEDICATIONS? :NO IS THERE A CHANCE YOU COULD BE ? :NO ARE YOU BREAST FEEDING? :NO CURRENT MEDICATIONS TAKING LYRICA 75 MG CAPSULE 1 CAPSULE ORALLY TID TAKING VALSARTAN 160 MG TABLET 1 TABLET ORALLY ONCE A DAY TAKING ATORVASTATIN CALCIUM 40 MG TABLET 1 TABLET ORALLY ONCE A DAY TAKING LABETALOL HCL 200 MG TABLET 1 TABLET ORALLY TWICE A DAY TAKING SERTRALINE HCL 100 MG TABLET 1 TABLET ORALLY ONCE A DAY TAKING LEVOTHYROXINE SODIUM 25 MCG TABLET 1 TABLET IN THE MORNING ON AN EMPTY STOMACH ORALLY ONCE A DAY TAKING MECLIZINE HCL 12.5 MG TABLET 1 TABLETS NEEDED ORALLY TID PRN TAKING AMLODIPINE BESYLATE 5 MG TABLET 1 TABLET ORALLY ONCE A DAY TAKING ASPIR-81 1 TAB DAILY TAKING FUROSEMIDE 40 MG TABLET 1 TABLET ORALLY ONCE A DAY PRN TAKING POTASSIUM CHLORIDE 10 MEQ CAPSULE EXTENDED RELEASE 1 CAPSULE WITH FOOD ORALLY DAILY TAKING MAGNESIUM 200 MG TABLET 1 TABLET WITH A MEAL ORALLY ONCE A DAY NOT-TAKING MELOXICAM 7.5 MG TABLET 1 TABLET ORALLY ONCE A DAY NOT-TAKING VITAMIN D (CHOLECALCIFEROL) 50 MCG (1999 UT) CAPSULE 1 CAPSULE ORALLY ONCE A DAY PAST MEDICAL HISTORY HTN HYPOTHYROIDISM HIGH CHOLESTEROL CHRONIC LOW BACK PAIN ALLERGIES VICKS BABYRUB: ANAPHYLAXIS - ALLERGY MELON: ANAPHYLAXIS - ALLERGY SURGICAL HISTORY BACK SURGERY 1993 & 1996 5 CARDIAC STENTS 2015 4 SHOULDER SURGERIES AND 2 ROTATOR CUFF REPAIRS [id number] BILAT CARPAL TUNNEL RELEASE ABD HERNIA REPAIR CHOLECYSTECTOMY FAMILY HISTORY FATHER: MOTHER: 3 BROTHER(S) , 2 SISTER(S) . 3 SON(S) - HEALTHY. SOCIAL HISTORY GENERAL: TOBACCO USE ARE YOU A:NONSMOKER LATEX QUESTIONNAIRE LATEX ALLERGY : HAVE YOU EVER DEVELOPED ANY TYPE OF REACTION AFTER HANDLING LATEX PRODUCTS SUCH RUBBER GLOVES, CONDOMS, DIAPHRAGMS, BALLOONS, SOCKS, OR UNDERWEAR?NO LATEX ALLERGY : HAVE YOU EVER DEVELOPED ANY TYPE OF REACTION DURING OR AFTER DENTAL APPOINTMENT, VAGINAL/RECTAL EXAMINATION, SURGICAL PROCEDURE, OR ANY OTHER EXPOSURE?NO DATE ASKED : 12/20/2019 LATEX RISK : HAVE YOU EVER HAD ANY DIFFICULTY BREATHING OR HIVES AFTER EATING OR HANDLING ANY FRUITS, OR VEGETABLES; SUCH KIWI, BANANAS, STONE FRUITS, OR CHESTNUTSNO LATEX RISK : DO YOU HAVE A PREVIOUS PERSONAL HISTORY OF MORE THAN NINE SURGERIES, SPINA BIFIDA, OR REPEATED CATHERIZATIONS? NO LATEX RISK : ARE YOU FREQUENTLY EXPOSED TO LATEX PRODUCTS IN YOUR OCCUPATION?NO ALCOHOL SCREENING DID YOU HAVE A DRINK CONTAINING ALCOHOL IN THE PAST YEAR?NO POINTS0 INTERPRETATIONNEGATIVE RECREATIONAL DRUG USE DRUG USE?NO PATIENT DENIES ABUSE OR MISSUSED OF ANY MEDICATION DENIES PATIENT DENIES USE OF ANY ILLEGAL SUBSTANCE INCLUDING MARIJUANA OR COCAINE DENIES ZOROASTRIANISM [id number] RASTAFARI LANGUAGE LANGUAGES SPOKEN:UKRAINIAN LEARNING BARRIERS / SPECIAL NEEDS CHANGE FROM LAST VISIT?NO BARRIERS TO LEARNING?NO HEARING IMPAIRED?NO VISION IMPAIRED?YES COGNITIVELY IMPAIRED?NO :CORRECTIVE LENSES READINESS TO LEARN?YES LEARNING PREFERENCES?NO LEARNING CAPABILITIES PRESENT?YES EMOTIONAL BARRIERS?NO SPECIAL DEVICES?NO SPORTS REPORTER NEEDED?NO DOMESTIC VIOLENCE DO YOU FEEL SAFE IN YOUR ENVIRONMENT?YES PAIN CLINIC PFS, CLERGY, PUBLIC HEALTH REFERRALS WAS THE PROVIDER NOTIFIED OF ANY PERTINENT INFO?YES HAS THE PATIENT BEEN EDUCATED REGARDING HIS/HER PLAN OF CARE?YES HAS THE PATIENT BEEN EDUCATED REGARDING PAIN, THE RISK FOR PAIN, THE IMPORTANCE OF EFFECTIVE PAIN MANAGEMENT, AND THE PAIN ASSESSMENT PROCESS?YES ADVANCE DIRECTIVE ADVANCE DIRECTIVE DISCUSSED WITH PATIENT:YES PT STATES THAT HE DOES NOT HAVE HCP AT THIS TIME, DECLINES ASSISTANCE WITH PAPERWORK. HOSPITALIZATION/MAJOR DIAGNOSTIC PROCEDURE SURGERIES REVIEW OF SYSTEMS CONSTITUTIONAL: ANY RECENT FEVER NO . CHILLS NO . WEIGHT CHANGE OF UNKNOWN REASONS NO . GASTROENTEROLOGY: NEW UNEXPLAINABLE CHANGES IN BOWEL CONTROL NO . CONSTIPATION NO . GENITOURINARY: ANY NEW CHANGE IN BLADDER CONTROL? NO . NEUROLOGY: NEW ONSET DIZZINESS OR NEUROLOGICAL CHANGES NOT MENTIONED NO . NEW NUMBNESS OR PAIN PATTERNS NOT MENTIONED AND PERTINENT TO TODAY'S VISIT NO . CARDIOLOGY: NEW CHEST PRESSURE NO . NEW CHEST PAIN NO . RESPIRATORY: UNEXPLAINABLE COUGH NO . NEW SHORTNESS OF BREATH NO . VITAL SIGNS WT 307.6 LBS, HT 70 IN, BMI 44.13 INDEX, BP 176/85 MM HG, HR 74 /MIN, RR 18 /MIN, TEMP 96.0 F, OXYGEN SAT % 92%, SAFE IN ENV? (Y/N) Y, NA INITIALS AW 0940, REVIEWED BY: WILL. EXAMINATION GENERAL EXAMINATION: GENERAL AWAKE,ALERT ,PLEASANT . PSYCH AFFECT NORMAL . LUNGS: LUNG TORRES ARE CLEAR TO AUSCULTATION BILATERALLY. GOOD MOVEMENT OF AIR . HEART: S1, S2 IN A REGULAR RATE AND RHYTHM. NO SIGNIFICANT MURMURS, RUBS OR GALLOPS NOTED . LUMBAR:PALPATION: + FOR PAIN OVER L/S SPINE. + FOR PAIN OVER L/S PARASPINALS. WELL-HEALED SURGICAL SCAR OVER L/S AXIS SPECIFIC POINT TENDERNESS NOTED OVER BILATERAL L4-5 L5-S1 LUMBAR FACETS WITH FACET LOADING LEFT GREATER THAN RIGHT. DIAGNOSTIC TESTS REVIEWEDMRI L/S SPINE 2019 . ASSESSMENTS OTHER CHRONIC PAIN - G89.29 (PRIMARY) LUMBOSACRAL SPONDYLOSIS WITHOUT MYELOPATHY - M47.817 TREATMENT OTHER CHRONIC PAIN PAIN PROCEDURE LOGDATE OF GUOMRBPOP01/3/20PROCEDURE:CAUDAL EPIDURALAMOUNT OF PRE SEDATENORCO 5/325, VALIUM 2RESULT:RREDUCTION IN PAIN CONTINUES TODAY NOTES: WORKMEN'S COMP REQUEST L4-5, L5-S1 BILATERAL LUMBAR THERAPEUTIC FACET BLOCK. PROCEDURES PN WORKMANS' COMP OPINION IN YOUR OPINION, WAS THE INCIDENT THAT THE PATIENT DESCRIBED THE COMPETENT MEDICAL CAUSE OF THIS INJURY/ILLNESS? YES ARE THE PATIENT'S COMPLAINTS CONSISTENT WITH HIS/HER HISTORY OF THE INJURY/ILLNESS? YES IS THE PATIENT'S HISTORY OF THE INJURY/ILLNESS CONSISTENT WITH YOUR OBJECTIVE FINDING? YES WHAT IS THE PERCENTAGE OF TEMPORARY IMPAIRMENT? MODERATE TO MARKED = 66.7% IS THE PATIENT WORKING? NO DOCTOR ON SITE: PRADEEP CUEVAS MD PROCEDURE CODES FA211 ESTABILISHED PATIENT [facility] FACILITY CHARGE DISPOSITION & COMMUNICATION FOLLOW UP POST PROCEDURE (REASON: WORKMEN'S COMP REQUEST L4-5, L5-S1 BILATERAL LUMBAR THERAPEUTIC FACET BLOCK) ELECTRONICALLY SIGNED BY SHAHAB IRIZARRY ON 01/31/2020 AT 09:32 AM EST DISCLAIMER : THIS IS A VISIT SUMMARY EXTRACTED FROM THE [employer] CHART. IT IS NOT A COPY OF THE [employer] PROGRESS NOTE. RICK
== END ==
LOC: M PAIN 09:30
PROVIDERS: ATTEND Nurse Practitioner Family
DX: G89.29 Other chronic pain (principal); M47.817 Spondylosis without myelopathy or radiculopathy, lumbosacral region; I10 Essential (primary) hypertension; E03.9 Hypothyroidism, unspecified; E78.00 Pure hypercholesterolemia, unspecified; Z79.82 Long term (current) use of aspirin; Z79.899 Other long term (current) drug therapy; Z88.8 Allergy status to other drugs, medicaments and biological substances; Z91.018 Allergy to other foods

== ENCOUNTER → 2020-04-09 | Outpatient (CLI) | payer OTHER, BC | LOC: M LABSMTC 09:55 | PROVIDERS: ATTEND Anesthesiology | DX: Z20.822 Contact with and (suspected) exposure to COVID-19 (principal) ==

== ENCOUNTER → 2020-04-14 | Outpatient (CLI) | payer OTHER, BC ==
[~2020-04-14] MED LIST changes: +BUPIVACAINE HCL 0.25% 30ML VIAL As Ordered ONE; +TRIAMCINOLONE ACETONIDE SUSP 40 MG/ML VIAL (J3301) As Ordered ONE; -methylPREDNISolone SUSP 40MG/ML 1ML VIAL (DEPO MEDROL) As Ordered ONE
--- NOTE | 2020-04-14 10:25 | REP ---
INDICATION: BILATERAL FACET. COMPARISON: None. TECHNIQUE: Four views. 61.5 seconds of fluoroscopy time is reported. FINDINGS: A sequence of 4 last image hold fluoroscopically obtained spot radiograph(s) of the lumbar spine document(s) needle position(s) and contrast injection associated with injection procedure. IMPRESSION: Procedural imaging. <Electronically signed by Royce Hall > 04/14/20 102
--- NOTE | 2020-04-16 01:41 | ECWPNPC ---
PATIENT NAME: TRUPTI ARNOLD : 1955 GENDER: MALE VISIT DATE: 04/14/2020 DISCHARGE DATE: 04/14/20 1029 VISIT LOCKED DATE TIME: PHYSICIAN: PRADEEP WALSH MD RESOURCE: PRADEEP WALSH MD REASON FOR APPOINTMENT 1. BILATERAL THERAPEUTIC LUMBAR FACET BLOCK L4-L5, L5-S1 HISTORY OF PRESENT ILLNESS GENERAL: -. FALL RISK SCREENING: SCREENING :ONE FALL WITHOUT INJURY IN THE PAST YEAR PAIN SCREENING: PATIENT HAS A COMPLAINT OF ACUTE OR CHRONIC PAIN :YES LOCATION OF PAIN:LOW BACK, LEG(S) INTENSITY OF PAIN (SCALE OF 1 TO 10):8 WHAT DOES YOUR PAIN FEEL LIKE:ACHING, BURNING, CONTINOUS, SHARP, TENDER, THROBBING, SORE, SHOOTING DURATION:CONTINOUS, CONSTANT PAIN IS INCREASED BY:ACTIVITIES PAIN IS DECREASED BY:USE OF PAIN MEDICATIONS, OTHERS REST NURSING NOTE: -. PAIN CENTER INTAKE QUESTIONS: DO YOU HAVE A HISTORY OF MRSA? :NO DO YOU TAKE A BLOOD THINNERS? :NO DO YOU HAVE ANY BLEEDING DISORDERS? :NO ANY NEW NUMBNESS OR WEAKNESS IN YOUR LEGS OR ARMS? :NO ANY PACEMAKER,DEFIBRILLATOR, OR DORSAL COLUMN STIMULATOR? :NO DO YOU HAVE ANY RASHES OR OPEN SORES? :NO ARE YOU ALLERGIC TO IV DYE? :NO ARE YOU DIABETIC? :NO ANY NEW PROBLEMS WITH YOUR MEDICATIONS? :NO HAVE YOU RECEIVED A VACCINE IN THE PAST 30 DAYS? :NO DO YOU PLAN TO RECEIVE A VACCINE IN THE NEXT 21 DAYS? :NO DO YOU TAKE ANY IMMUNOSUPPRESSIVE MEDICATIONS? :NO ANY HISTORY OF SEIZURES? :NO ANY HISTORY OF CARDIAC ISSUES OR EVENTS? :NO DO YOU HAVE SLEEP APNEA? :YES DO YOU WEAR A CPAP?NO ANY RECENT HEAD INJURY? :NO DO YOU HAVE ANY NEW INFECTIONS? :NO IS THERE A CHANCE YOU COULD BE ? :NO ARE YOU BREAST FEEDING? :NO WHEN DID YOU LAST EAT? : -LAST NIGHT 1900 WHEN DID YOU LAST DRINK? : -THIS AM 0600 WHAT DID YOU LAST DRINK? : -0600 NAME OF PERSON DRIVING YOU HOME? : -ANKUR DO YOU HAVE ANY OTHER QUESTIONS OR CONCERNS? : - CURRENT MEDICATIONS TAKING LYRICA 75 MG CAPSULE 1 CAPSULE ORALLY TID TAKING VALSARTAN 160 MG TABLET 1 TABLET ORALLY ONCE A DAY TAKING ATORVASTATIN CALCIUM 40 MG TABLET 1 TABLET ORALLY ONCE A DAY TAKING LABETALOL HCL 200 MG TABLET 1 TABLET ORALLY TWICE A DAY TAKING SERTRALINE HCL 100 MG TABLET 1 TABLET ORALLY ONCE A DAY TAKING LEVOTHYROXINE SODIUM 25 MCG TABLET 1 TABLET IN THE MORNING ON AN EMPTY STOMACH ORALLY ONCE A DAY TAKING MECLIZINE HCL 12.5 MG TABLET 1 TABLETS NEEDED ORALLY TID PRN TAKING AMLODIPINE BESYLATE 5 MG TABLET 1 TABLET ORALLY ONCE A DAY TAKING ASPIR-81 1 TAB DAILY TAKING FUROSEMIDE 40 MG TABLET 1 TABLET ORALLY ONCE A DAY PRN TAKING POTASSIUM CHLORIDE 10 MEQ CAPSULE EXTENDED RELEASE 1 CAPSULE WITH FOOD ORALLY PRN DAILY WITH LASIX TAKING MAGNESIUM 200 MG TABLET 1 TABLET WITH A MEAL ORALLY ONCE A DAY NOT-TAKING MELOXICAM 7.5 MG TABLET 1 TABLET ORALLY ONCE A DAY NOT-TAKING VITAMIN D (CHOLECALCIFEROL) 50 MCG (1999) CAPSULE 1 CAPSULE ORALLY ONCE A DAY MEDICATION LIST REVIEWED AND RECONCILED WITH THE PATIENT PAST MEDICAL HISTORY HTN HYPOTHYROIDISM HIGH CHOLESTEROL CHRONIC LOW BACK PAIN ALLERGIES VICKS BABYRUB: ANAPHYLAXIS - ALLERGY MELON: ANAPHYLAXIS - ALLERGY SURGICAL HISTORY BACK SURGERY 1993 & 1996 5 CARDIAC STENTS 2015 4 SHOULDER SURGERIES AND 2 ROTATOR CUFF REPAIRS [id number] BILAT CARPAL TUNNEL RELEASE ABD HERNIA REPAIR CHOLECYSTECTOMY FAMILY HISTORY FATHER: MOTHER: 3 BROTHER(S) , 2 SISTER(S) . 3 SON(S) - HEALTHY. SOCIAL HISTORY GENERAL: TOBACCO USE ARE YOU A:NONSMOKER LATEX QUESTIONNAIRE LATEX ALLERGY : HAVE YOU EVER DEVELOPED ANY TYPE OF REACTION AFTER HANDLING LATEX PRODUCTS SUCH RUBBER GLOVES, CONDOMS, DIAPHRAGMS, BALLOONS, SOCKS, OR UNDERWEAR?NO LATEX ALLERGY : HAVE YOU EVER DEVELOPED ANY TYPE OF REACTION DURING OR AFTER DENTAL APPOINTMENT, VAGINAL/RECTAL EXAMINATION, SURGICAL PROCEDURE, OR ANY OTHER EXPOSURE?NO LATEX RISK : HAVE YOU EVER HAD ANY DIFFICULTY BREATHING OR HIVES AFTER EATING OR HANDLING ANY FRUITS, OR VEGETABLES; SUCH KIWI, BANANAS, STONE FRUITS, OR CHESTNUTSNO LATEX RISK : DO YOU HAVE A PREVIOUS PERSONAL HISTORY OF MORE THAN NINE SURGERIES, SPINA BIFIDA, OR REPEATED CATHERIZATIONS? YES - PLEASE INDICATE : > 9 SURGERIES LATEX RISK : ARE YOU FREQUENTLY EXPOSED TO LATEX PRODUCTS IN YOUR OCCUPATION?NO DATE ASKED : 04/11/2020 ALCOHOL SCREENING DID YOU HAVE A DRINK CONTAINING ALCOHOL IN THE PAST YEAR?NO POINTS0 INTERPRETATIONNEGATIVE RECREATIONAL DRUG USE DRUG USE?NO PATIENT DENIES ABUSE OR MISSUSED OF ANY MEDICATION DENIES PATIENT DENIES USE OF ANY ILLEGAL SUBSTANCE INCLUDING MARIJUANA OR COCAINE DENIES ZOROASTRIANISM [id number] TENRIISM LANGUAGE LANGUAGES SPOKEN:YI LEARNING BARRIERS / SPECIAL NEEDS CHANGE FROM LAST VISIT?NO BARRIERS TO LEARNING?NO HEARING IMPAIRED?NO VISION IMPAIRED?YES COGNITIVELY IMPAIRED?NO :CORRECTIVE LENSES READINESS TO LEARN?YES LEARNING PREFERENCES?NO LEARNING CAPABILITIES PRESENT?YES EMOTIONAL BARRIERS?NO SPECIAL DEVICES?NO TEACHING DIETITIAN NEEDED?NO DOMESTIC VIOLENCE DO YOU FEEL SAFE IN YOUR ENVIRONMENT?YES - WAS THE PROVIDER NOTIFIED OF ANY PERTINENT INFO?YES HAS THE PATIENT BEEN EDUCATED REGARDING HIS/HER PLAN OF CARE?YES HAS THE PATIENT BEEN EDUCATED REGARDING PAIN, THE RISK FOR PAIN, THE IMPORTANCE OF EFFECTIVE PAIN MANAGEMENT, AND THE PAIN ASSESSMENT PROCESS?YES ADVANCE DIRECTIVE ADVANCE DIRECTIVE DISCUSSED WITH PATIENT:YES PT STATES THAT HE DOES NOT HAVE HCP AT THIS TIME, DECLINES ASSISTANCE WITH PAPERWORK. HOSPITALIZATION/MAJOR DIAGNOSTIC PROCEDURE SURGERIES VITAL SIGNS WT 319.0 LBS, HT 70 IN, BMI 45.77 INDEX, BP 176/97 MM HG, HR 67 /MIN, RR 18 /MIN, TEMP 97.3 F, OXYGEN SAT % 96%, SAFE IN ENV? (Y/N) YES, NA INITIALS AW 0820. EXAMINATION GENERAL EXAMINATION: THE PATIENT IS ALERT, ORIENTED TIMES THREE AND COOPERATIVE. LUNGS ARE CLEAR TO AUSCULTATION. HEART SHOWS REGULAR RHYTHM, NO MURMURS AND NO GALLOPS. ASSESSMENTS SPONDYLOSIS WITHOUT MYELOPATHY OR RADICULOPATHY, LUMBAR REGION - M47.816 (PRIMARY) SPONDYLOSIS WITHOUT MYELOPATHY OR RADICULOPATHY, LUMBOSACRAL REGION - M47.817 TREATMENT SPONDYLOSIS WITHOUT MYELOPATHY OR RADICULOPATHY, LUMBAR REGION SMC FACET BLOCK (PAIN)[id number] MEDICATION: NORCO TABLET 5MG/325MG ORALLY (HYDROCODONE/ACETAMINOPHEN)CAMILA FREITAS RN 04/14/2020 9:17:53 AM > VERIFIED. HAILEY BENTLEY 04/14/2020 9:18:21 AM > GIVEN MEDICATION: VALIUM TAB 2MG ORALLY (DIAZEPAM)CAMILA FREITAS RN 04/14/2020 9:18:08 AM > VERIFIED. HAILEY BENTLEY 04/14/2020 9:18:57 AM > GIVEN COMPLETION OF PROCEDURAL VISIT WHEN MEETS CRITERIA SPONDYLOSIS WITHOUT MYELOPATHY OR RADICULOPATHY, LUMBOSACRAL REGION SMC FACET BLOCK (PAIN)[id number] OTHERS NOTES: PAT COMPLETED 04/11/20 Vandana DOHERTY RN. PROCEDURES PAIN NURSING RECORD PROCEDURE IN ROOM 0900, PHYSICIAN IN ROOM 0950, START 1000, FINISH 1009, PHYSICIAN OUT OF ROOM 1010, OUT OF ROOM 1015, ECG NORMAL SINUS, PATIENT SHIELDED YES, SAFETY STRAP YES, PREP CHLOROPREP, DRESSING TEGADERM APPLIED BY DR WALSH LOC: 1. ALERT, ORIENTED HAILEY BENTLEY 04/14/2020 9:36:52 AM > RESP: 1. REGULAR, NO DYSPNEA SHEREEHAILEY 04/14/2020 9:36:56 AM > COLOR: 1. PINK SHEREEHAILEY 04/14/2020 9:37:01 AM > SKIN: 1. WARM, DRY SHEREEHAILEY 04/14/2020 9:37:05 AM > POSITION: 1. PRONE SHEREEHAILEY 04/14/2020 9:37:12 AM > VITALS: 178/115 67 99% 18 RESP KGULLO RN 0910 0925 194/93 64 97% 18 RESP KGULLO RN 0940 200/96 63 97% 18 RESP KGULLO RN 0955 193/88 64 98% ON RA 18 RESP KGULLO RN [id number] 65 96% ON RA 18 RESP KGULLO RN 1020 POST PROCEDURE 158/58 MANUAL BP 66 HR 98% AND 18 ON RA KGRENÉO RN NOTES Billy BENTLEY RN COMPLETION OF PROCEDURE APPOINTMENT: POST PAIN 0, DRESSING SITE DRY AND INTACT, GAIT STEADY, TEACHING COMPLETED, PATIENT ACKNOWLEDGES UNDERSTANDING YES, PROCEDURE APPOINTMENT COMPLETED AT 1030 PN WORKMANS' COMP OPINION IN YOUR OPINION, WAS THE INCIDENT THAT THE PATIENT DESCRIBED THE COMPETENT MEDICAL CAUSE OF THIS INJURY/ILLNESS? YES ARE THE PATIENT'S COMPLAINTS CONSISTENT WITH HIS/HER HISTORY OF THE INJURY/ILLNESS? YES IS THE PATIENT'S HISTORY OF THE INJURY/ILLNESS CONSISTENT WITH YOUR OBJECTIVE FINDING? YES WHAT IS THE PERCENTAGE OF TEMPORARY IMPAIRMENT? MODERATE TO MARKED = 66.7% . IS THE PATIENT WORKING? NO . DOCTOR ON SITE: PRADEEP CUEVAS MD PN LUMBAR FACET BLOCK THERAPEUTIC PRE PROCEDURE DIAGNOSIS LUMBAR SPONDYLOSIS, LUMBOSACRAL SPONDYLOSIS POST PROCEDURE DIAGNOSIS LUMBAR SPONDYLOSIS, LUMBOSACRAL SPONDYLOSIS PROCEDURE BILATERAL L4-L5 AND BILATERAL L5-S1 LUMBAR FACET THERAPEUTIC BLOCK SURGEON DR. PRADEEP WALSH DIRECTOR OF CUSTOMER ACQUISITION NONE ANESTHESIA LOCAL PRE PROCEDURE NOTE THE PATIENT HAS A HISTORY OF CHRONIC LOW BACK PAIN. I EVALUATED THE PATIENT AND REVIEWED THE CHART. I WENT OVER THE RISKS, ALTERNATIVES, AND BENEFITS ASSOCIATED WITH THIS PROCEDURE. THE PATIENT WOULD LIKE TO PROCEED AND GIVES CONSENT TO PERFORM THE PROCEDURE. THE PATIENT DENIES UNEXPLAINABLE WEIGHT LOSS, FEVER, CHILLS, OR NEW CHANGES IN URINARY OR BOWEL CONTROL. THE PATIENT IS COVID-19 NEGATIVE DESCRIPTION OF PROCEDURE THE PATIENT WAS BROUGHT TO THE PROCEDURE ROOM AND PLACED IN THE PRONE POSITION. THE LUMBOSACRAL AREA WAS CLEANED WITH CHLORAPREP SOLUTION AND DRAPED ASEPTICALLY. THE PROCEDURE WAS DONE UNDER STERILE CONDITIONS. A TIMEOUT WAS PERFORMED WHERE THE CONSENTED SITE WAS VERIFIED WITH EVERYONE IN THE ROOM. UNDER FLUOROSCOPIC GUIDANCE, THE TARGET POINT WAS SELECTED AT THE RIGHT AND LEFT L4-L5 AND RIGHT AND LEFT L5-S1 FACET JOINTS. TARGET POINT WAS SELECTED AFTER LATERAL ROTATION AND TILT OF THE MAGNIFIER OF THE C-ARM. I CONFIRMED AGAIN THE SITE OF THE TARGET. LIDOCAINE 0.5% WAS USED TO NUMB THE SKIN AND THE SUBCUTANEOUS TISSUE BELOW IT. SPINAL NEEDLES, 22-GAUGE, WERE ADVANCED UNDER FLUOROSCOPIC GUIDANCE AND FOLLOWING PATIENT FEEDBACK UNTIL THE TARGETS WERE TOUCHED. THE POSITION OF THE NEEDLES WAS VERIFIED WITH AP AND LATERAL VIEWS. AFTER PROPER POSITION OF THE NEEDLES WAS ACHIEVED, ISOVUE-M DYE 30%, 0.1 ML, WAS INJECTED SHOWING ADEQUATE SPREAD OF THE DYE. KENALOG 10 MG WAS INJECTED AT EACH SITE. THEN, A SOLUTION OF 1.0 ML OF BUPIVACAINE 0.125% OF WAS USED TO FLUSH EACH SITE. THE MEDICATION WAS VERIFIED WITH THE NURSE. THERE WAS NO EVIDENCE OF BLOOD, PARESTHESIA OR CEREBROSPINAL FLUID DURING THE PROCEDURE. THE PATIENT WAS SENT TO THE RECOVERY ROOM. THE PATIENT WAS MOVING THE EXTREMITIES AND DOING WELL. THERE WERE NO COMPLICATIONS DURING THE PROCEDURE. ESTIMATED BLOOD LOSS WAS LESS THAN 5 ML. FLUOROSCOPY TIME WAS 1 MINUTE 1 SECOND POST PROCEDURE NOTE THE PATIENT WILL BE SEEN IN A FOLLOW UP IN THE NEXT FEW WEEKS. I AM LOOKING FOR LONG LASTING RELIEF FOR THE PATIENT WITH THIS INTERVENTION. INSTRUCTIONS WERE GIVEN, QUESTIONS WERE ANSWERED, AND THE PATIENT EXPRESSED UNDERSTANDING AND AGREES WITH THE PLAN. I, DENVER BASS, DOCUMENTED THE ABOVE INFORMATION ACTING A SCRIBE FOR DR. WALSH. I HAVE REVIEWED THE ABOVE DOCUMENT, WRITTEN BY EDNVER BASS, CORRESPONDENCE SCHOOL TEACHER, AND I VERIFY THAT IT IS ACCURATE PROCEDURE CODES 15301 INJ PARAVERT F JNT L/S 1 LEV, MODIFIERS: 50 [id number] INJ PARAVERT F JNT L/S 2 LEV, MODIFIERS: 50 DISPOSITION & COMMUNICATION FOLLOW UP FOLLOW UP WITH AIR VALUE TESTER (REASON: POST BILATERAL THERAPEUTIC LUMBAR FACET BLOCK L4-L5, L5-S1) ELECTRONICALLY SIGNED BY PRADEEP WALSH MD, ON 04/15/2020 AT 12:44 PM EST DISCLAIMER : THIS IS A VISIT SUMMARY EXTRACTED FROM THE [facility] CHART. IT IS NOT A COPY OF THE [facility] PROGRESS NOTE. RICK
== END ==
LOC: M PAIN 08:30
PROVIDERS: ATTEND Anesthesiology
DX: M47.816 Spondylosis without myelopathy or radiculopathy, lumbar region (principal); M47.817 Spondylosis without myelopathy or radiculopathy, lumbosacral region; G47.30 Sleep apnea, unspecified; E03.9 Hypothyroidism, unspecified; Z95.5 Presence of coronary angioplasty implant and graft; Z91.018 Allergy to other foods; Z91.09 Other allergy status, other than to drugs and biological substances; E66.01 Morbid (severe) obesity due to excess calories; Z68.42 Body mass index [BMI] 45.0-49.9, adult; Z79.82 Long term (current) use of aspirin; Z79.899 Other long term (current) drug therapy
CPT/HCPCS: 64493; 64494; J3301; Q9967

== ENCOUNTER → 2020-04-28 | Outpatient (CLI) | payer OTHER, BC ==
--- NOTE | 2020-04-30 06:58 | ECWPNPC ---
PATIENT NAME: TRUPTI ARNOLD : 1955 GENDER: MALE VISIT DATE: 04/28/2020 DISCHARGE DATE: 04/28/20 0958 VISIT LOCKED DATE TIME: PHYSICIAN: IRMA LAZO RESOURCE: IRMA LAZO REASON FOR APPOINTMENT 1. POST BILATERAL LUMBAR THERAPEUTIC FACET BLOCK L4-5, L5-S1 HISTORY OF PRESENT ILLNESS DEPRESSION SCREENING: PHQ-2 (2015 EDITION) LITTLE INTEREST OR PLEASURE IN DOING THINGS?NOT AT ALL FEELING DOWN, DEPRESSED, OR HOPELESS?NOT AT ALL TOTAL SCORE0 GENERAL: HERE FOR POST PROCEDURE FOLLOW-UP. HAD BILATERAL THERAPEUTIC LUMBAR FACET BLOCK L4-5, L5-S1 ON 04/14/2020. REPORTING MARKED REDUCTION IN PAIN ACROSS HIS LOWER BACK. REPORTING IMPROVED ACTIVITY TOLERANCE. RATING PAIN LEVEL A 4/10. THIS IS A WORK RELATED INJURY. - -. FALL RISK SCREENING: SCREENING :ONE FALL WITHOUT INJURY IN THE PAST YEAR PATIENT DID NOT SEEK MEDICAL TREATMENT. PAIN SCREENING: PATIENT HAS A COMPLAINT OF ACUTE OR CHRONIC PAIN :YES LOCATION OF PAIN:LOW BACK INTENSITY OF PAIN (SCALE OF 1 TO 10):2 WHAT DOES YOUR PAIN FEEL LIKE:THROBBING DURATION:INTERMITTENT PAIN IS INCREASED BY:ACTIVITIES, PROLONGED STANDING PAIN IS DECREASED BY:OTHERS LAYING FLAT NURSING NOTE: - -. PAIN CENTER INTAKE QUESTIONS: DO YOU HAVE A HISTORY OF MRSA? :NO DO YOU TAKE A BLOOD THINNERS? :NO DO YOU HAVE ANY BLEEDING DISORDERS? :NO ANY NEW NUMBNESS OR WEAKNESS IN YOUR LEGS OR ARMS? :NO ANY PACEMAKER,DEFIBRILLATOR, OR DORSAL COLUMN STIMULATOR? :NO DO YOU HAVE ANY RASHES OR OPEN SORES? :NO ARE YOU ALLERGIC TO IV DYE? :NO ARE YOU DIABETIC? :NO ANY NEW PROBLEMS WITH YOUR MEDICATIONS? :NO HAVE YOU RECEIVED A VACCINE IN THE PAST 30 DAYS? :NO DO YOU PLAN TO RECEIVE A VACCINE IN THE NEXT 21 DAYS? :YES IF SO WHAT VACCINE AND WHEN? WOULD LIKE THE COVID VACCINATION WHEN IT BECOMES AVAILABLE. DO YOU NEED ANY PRESCRIPTION? :NO DO YOU TAKE ANY IMMUNOSUPPRESSIVE MEDICATIONS? :NO IS THERE A CHANCE YOU COULD BE ? :NO ARE YOU BREAST FEEDING? :NO CURRENT MEDICATIONS TAKING LYRICA 75 MG CAPSULE 1 CAPSULE ORALLY TID TAKING VALSARTAN 160 MG TABLET 1 TABLET ORALLY ONCE A DAY TAKING ATORVASTATIN CALCIUM 40 MG TABLET 1 TABLET ORALLY ONCE A DAY TAKING LABETALOL HCL 200 MG TABLET 1 TABLET ORALLY TWICE A DAY TAKING SERTRALINE HCL 100 MG TABLET 1 TABLET ORALLY ONCE A DAY TAKING LEVOTHYROXINE SODIUM 25 MCG TABLET 1 TABLET IN THE MORNING ON AN EMPTY STOMACH ORALLY ONCE A DAY TAKING MECLIZINE HCL 12.5 MG TABLET 1 TABLETS NEEDED ORALLY TID PRN TAKING AMLODIPINE BESYLATE 5 MG TABLET 1 TABLET ORALLY ONCE A DAY TAKING ASPIR-81 1 TAB DAILY TAKING FUROSEMIDE 40 MG TABLET 1 TABLET ORALLY ONCE A DAY PRN TAKING POTASSIUM CHLORIDE 10 MEQ CAPSULE EXTENDED RELEASE 1 CAPSULE WITH FOOD ORALLY PRN DAILY WITH LASIX TAKING MAGNESIUM 200 MG TABLET 1 TABLET WITH A MEAL ORALLY ONCE A DAY TAKING TYLENOL EXTRA STRENGTH 500 MG TABLET 2 TABLET NEEDED ORALLY DIRECTED NOT-TAKING MELOXICAM 7.5 MG TABLET 1 TABLET ORALLY ONCE A DAY NOT-TAKING VITAMIN D (CHOLECALCIFEROL) 50 MCG (1999) CAPSULE 1 CAPSULE ORALLY ONCE A DAY MEDICATION LIST REVIEWED AND RECONCILED WITH THE PATIENT PAST MEDICAL HISTORY HTN HYPOTHYROIDISM HIGH CHOLESTEROL CHRONIC LOW BACK PAIN ALLERGIES VICKS BABYRUB: ANAPHYLAXIS - ALLERGY MELON: ANAPHYLAXIS - ALLERGY SOCIAL HISTORY GENERAL: TOBACCO USE ARE YOU A:NONSMOKER LATEX QUESTIONNAIRE LATEX ALLERGY : HAVE YOU EVER DEVELOPED ANY TYPE OF REACTION AFTER HANDLING LATEX PRODUCTS SUCH RUBBER GLOVES, CONDOMS, DIAPHRAGMS, BALLOONS, SOCKS, OR UNDERWEAR?NO LATEX ALLERGY : HAVE YOU EVER DEVELOPED ANY TYPE OF REACTION DURING OR AFTER DENTAL APPOINTMENT, VAGINAL/RECTAL EXAMINATION, SURGICAL PROCEDURE, OR ANY OTHER EXPOSURE?NO LATEX RISK : HAVE YOU EVER HAD ANY DIFFICULTY BREATHING OR HIVES AFTER EATING OR HANDLING ANY FRUITS, OR VEGETABLES; SUCH KIWI, BANANAS, STONE FRUITS, OR CHESTNUTSNO LATEX RISK : DO YOU HAVE A PREVIOUS PERSONAL HISTORY OF MORE THAN NINE SURGERIES, SPINA BIFIDA, OR REPEATED CATHERIZATIONS? YES - PLEASE INDICATE : > 9 SURGERIES LATEX RISK : ARE YOU FREQUENTLY EXPOSED TO LATEX PRODUCTS IN YOUR OCCUPATION?NO DATE ASKED : 04/28/2020 ALCOHOL USE: NO. ALCOHOL SCREENING DID YOU HAVE A DRINK CONTAINING ALCOHOL IN THE PAST YEAR?NO POINTS0 INTERPRETATIONNEGATIVE RECREATIONAL DRUG USE DRUG USE?NO PATIENT DENIES ABUSE OR MISSUSED OF ANY MEDICATION DENIES PATIENT DENIES USE OF ANY ILLEGAL SUBSTANCE INCLUDING MARIJUANA OR COCAINE DENIES L[employer] [id number] ALEVISM LANGUAGE LANGUAGES SPOKEN:NIUEAN LEARNING BARRIERS / SPECIAL NEEDS CHANGE FROM LAST VISIT?NO BARRIERS TO LEARNING?NO HEARING IMPAIRED?NO VISION IMPAIRED?YES :CORRECTIVE LENSES COGNITIVELY IMPAIRED?NO READINESS TO LEARN?YES LEARNING PREFERENCES?NO LEARNING CAPABILITIES PRESENT?YES EMOTIONAL BARRIERS?NO SPECIAL DEVICES?YES :CANE NEEDED HEAD START DIRECTOR NEEDED?NO DOMESTIC VIOLENCE DO YOU FEEL SAFE IN YOUR ENVIRONMENT?YES - WAS THE PROVIDER NOTIFIED OF ANY PERTINENT INFO?YES HAS THE PATIENT BEEN EDUCATED REGARDING HIS/HER PLAN OF CARE?YES HAS THE PATIENT BEEN EDUCATED REGARDING PAIN, THE RISK FOR PAIN, THE IMPORTANCE OF EFFECTIVE PAIN MANAGEMENT, AND THE PAIN ASSESSMENT PROCESS?YES ADVANCE DIRECTIVE ADVANCE DIRECTIVE DISCUSSED WITH PATIENT:YES PT STATES THAT HE DOES NOT HAVE HCP AT THIS TIME, DECLINES ASSISTANCE WITH PAPERWORK. REVIEW OF SYSTEMS CONSTITUTIONAL: ANY RECENT FEVER NO . CHILLS NO . WEIGHT CHANGE OF UNKNOWN REASONS NO . GASTROENTEROLOGY: NEW UNEXPLAINABLE CHANGES IN BOWEL CONTROL NO . CONSTIPATION NO . GENITOURINARY: ANY NEW CHANGE IN BLADDER CONTROL? NO . NEUROLOGY: NEW ONSET DIZZINESS OR NEUROLOGICAL CHANGES NOT MENTIONED NO . NEW NUMBNESS OR PAIN PATTERNS NOT MENTIONED AND PERTINENT TO TODAY'S VISIT NO . CARDIOLOGY: NEW CHEST PRESSURE NO . NEW CHEST PAIN NO . RESPIRATORY: UNEXPLAINABLE COUGH NO . NEW SHORTNESS OF BREATH NO . VITAL SIGNS WT 323.2 LBS, HT 70 IN, BMI 46.37 INDEX, BP 141/72 MM HG, HR 82 /MIN, RR 18 /MIN, TEMP 97.7 F, OXYGEN SAT % 96%, SAFE IN ENV? (Y/N) YES, NA INITIALS AW 0928JORIA BAEZA MA. EXAMINATION GENERAL EXAMINATION: GENERALAWAKE,ALERT ,PLEASANT . PSYCHAFFECT NORMAL . LUNGS:LUNG TORRES ARE CLEAR TO AUSCULTATION BILATERALLY. GOOD MOVEMENT OF AIR . HEART:S1, S2 IN A REGULAR RATE AND RHYTHM. NO SIGNIFICANT MURMURS, RUBS OR GALLOPS NOTED . ASSESSMENTS OTHER CHRONIC PAIN - G89.29 (PRIMARY) SPONDYLOSIS WITHOUT MYELOPATHY OR RADICULOPATHY, LUMBAR REGION - M47.816 TREATMENT OTHER CHRONIC PAIN PAIN PROCEDURE LOGDATE OF PROCEDURE1PROCEDURE:BILATERAL THERAPEUTIC LUMBAR FACET BLOCK L4-L5,L5-I9PMRTZR OF PRE SEDATEHYDROCODONE 5MG, VALIUM 2MGRESULT:GREATER THAN 80% REDUCTION IN PAIN CONTINUES TODAY. REPORTING IMPROVED ACTIVITY TOLERANCE POST PROCEDURE. PROCEDURES PN WORKMANS' COMP OPINION IN YOUR OPINION, WAS THE INCIDENT THAT THE PATIENT DESCRIBED THE COMPETENT MEDICAL CAUSE OF THIS INJURY/ILLNESS? YES ARE THE PATIENT'S COMPLAINTS CONSISTENT WITH HIS/HER HISTORY OF THE INJURY/ILLNESS? YES IS THE PATIENT'S HISTORY OF THE INJURY/ILLNESS CONSISTENT WITH YOUR OBJECTIVE FINDING? YES WHAT IS THE PERCENTAGE OF TEMPORARY IMPAIRMENT? MODERATE TO MARKED = 66.7% IS THE PATIENT WORKING? NO DOCTOR ON SITE: PRADEEP CUEVAS MD PROCEDURE CODES FA211 ESTABILISHED PATIENT [facility] CHARGE DISPOSITION & COMMUNICATION FOLLOW UP 3 MONTHS (REASON: W/C LOW BACK) ELECTRONICALLY SIGNED BY SHAHAB IRIZARRY ON 04/29/2020 AT 10:13 PM EST DISCLAIMER : THIS IS A VISIT SUMMARY EXTRACTED FROM THE [employer] CHART. IT IS NOT A COPY OF THE [employer] PROGRESS NOTE. RICK
== END ==
LOC: M PAIN 09:00
PROVIDERS: ATTEND Nurse Practitioner Family
DX: G89.29 Other chronic pain (principal); M47.816 Spondylosis without myelopathy or radiculopathy, lumbar region; E03.9 Hypothyroidism, unspecified; Z91.018 Allergy to other foods; Z91.09 Other allergy status, other than to drugs and biological substances; E66.01 Morbid (severe) obesity due to excess calories; Z68.42 Body mass index [BMI] 45.0-49.9, adult; Z79.82 Long term (current) use of aspirin; Z79.899 Other long term (current) drug therapy

== ENCOUNTER → 2020-06-20 | Outpatient (CLI) | payer OTHER, BC ==
--- NOTE | 2020-06-20 23:25 | ECWPNPC ---
PATIENT NAME: TRUPTI ARNOLD : 1955 GENDER: MALE VISIT DATE: 06/20/2020 DISCHARGE DATE: 06/20/20 1040 VISIT LOCKED DATE TIME: PHYSICIAN: IRMA LAZO RESOURCE: IRMA LAZO REASON FOR APPOINTMENT 1. W/C LOW BACK HISTORY OF PRESENT ILLNESS GENERAL: HERE FOR FOLLOW-UP OF CHRONIC LOW BACK PAIN. THIS IS A WORK RELATED INJURY WITH DATE OF INJURY AUGUST 1985. HISTORY OF LUMBAR SURGERY X2 IN 1996. HAVING SEVERE INCREASE IN PAIN ACROSS HIS LOWER BACK OVER THE PAST 2 WEEKS. DENIES PRECIPITATING EVENT. STATES THAT EVER SINCE HE HAD FIRST COVID 19 VACCINATION HE HAS BEEN IN SIGNIFICANT BACK PAIN. VERY DIFFICULT FOR HIM TO MOVE FROM SITTING TO STANDING TODAY. REVIEWED MRI OF THE LS-SPINE. DISCUSSED TREATMENT PLAN. DENIES INJURY. DENIES LOSS OF CONTROL OF BOWEL OR BLADDER. DENIES SADDLE PARESTHESIAS. - -. FALL RISK SCREENING: SCREENING : NO FALLS REPORTED IN THE LAST YEAR. PAIN SCREENING: PATIENT HAS A COMPLAINT OF ACUTE OR CHRONIC PAIN :YES LOCATION OF PAIN:LOW BACK INTENSITY OF PAIN (SCALE OF 1 TO 10):8 WHAT DOES YOUR PAIN FEEL LIKE:ACHING, BURNING, SHOOTING DURATION:CONTINOUS, CONSTANT, ALL DAY PAIN IS INCREASED BY:ACTIVITIES, PROLONGED STANDING PAIN IS DECREASED BY:OTHERS HEAT AND ICE NURSING NOTE: -. PAIN CENTER INTAKE QUESTIONS: DO YOU HAVE A HISTORY OF MRSA? :NO DO YOU TAKE A BLOOD THINNERS? :NO DO YOU HAVE ANY BLEEDING DISORDERS? :NO ANY NEW NUMBNESS OR WEAKNESS IN YOUR LEGS OR ARMS? :YES NUMBESS IN BOTH LEGS ANY PACEMAKER,DEFIBRILLATOR, OR DORSAL COLUMN STIMULATOR? :NO DO YOU HAVE ANY RASHES OR OPEN SORES? :NO ARE YOU ALLERGIC TO IV DYE? :NO ARE YOU DIABETIC? :NO ANY NEW PROBLEMS WITH YOUR MEDICATIONS? :NO HAVE YOU RECEIVED A VACCINE IN THE PAST 30 DAYS? :YES IF SO WHAT VACCINE AND WHEN? 2ND COVID 06/09/2020 DO YOU PLAN TO RECEIVE A VACCINE IN THE NEXT 21 DAYS? :NO DO YOU NEED ANY PRESCRIPTION? :NO DO YOU TAKE ANY IMMUNOSUPPRESSIVE MEDICATIONS? :NO IS THERE A CHANCE YOU COULD BE ? :NO ARE YOU BREAST FEEDING? :NO CURRENT MEDICATIONS TAKING LYRICA 75 MG CAPSULE 1 CAPSULE ORALLY TID TAKING VALSARTAN 320 MG TABLET 1 TABLET ORALLY ONCE A DAY TAKING ATORVASTATIN CALCIUM 40 MG TABLET 1 TABLET ORALLY ONCE A DAY TAKING LABETALOL HCL 200 MG TABLET 1 TABLET ORALLY TWICE A DAY TAKING SERTRALINE HCL 100 MG TABLET 1 TABLET ORALLY ONCE A DAY TAKING LEVOTHYROXINE SODIUM 25 MCG TABLET 1 TABLET IN THE MORNING ON AN EMPTY STOMACH ORALLY ONCE A DAY TAKING MECLIZINE HCL 12.5 MG TABLET 1 TABLETS NEEDED ORALLY TID PRN TAKING AMLODIPINE BESYLATE 5 MG TABLET 1 TABLET ORALLY ONCE A DAY TAKING ASPIR-81 1 TAB DAILY TAKING FUROSEMIDE 40 MG TABLET 1 TABLET ORALLY ONCE A DAY PRN TAKING POTASSIUM CHLORIDE 10 MEQ CAPSULE EXTENDED RELEASE 1 CAPSULE WITH FOOD ORALLY PRN DAILY WITH LASIX TAKING MAGNESIUM 200 MG TABLET 1 TABLET WITH A MEAL ORALLY ONCE A DAY TAKING TYLENOL EXTRA STRENGTH 500 MG TABLET 2 TABLET NEEDED ORALLY DIRECTED NOT-TAKING MELOXICAM 7.5 MG TABLET 1 TABLET ORALLY ONCE A DAY NOT-TAKING VITAMIN D (CHOLECALCIFEROL) 50 MCG (2000 UT) CAPSULE 1 CAPSULE ORALLY ONCE A DAY MEDICATION LIST REVIEWED AND RECONCILED WITH THE PATIENT PAST MEDICAL HISTORY HTN HYPOTHYROIDISM HIGH CHOLESTEROL CHRONIC LOW BACK PAIN ALLERGIES VICKS BABYRUB: ANAPHYLAXIS - ALLERGY MELON: ANAPHYLAXIS - ALLERGY SURGICAL HISTORY BACK SURGERY 1993 & 1996 5 CARDIAC STENTS 2015 4 SHOULDER SURGERIES AND 2 ROTATOR CUFF REPAIRS [id number] BILAT CARPAL TUNNEL RELEASE ABD HERNIA REPAIR CHOLECYSTECTOMY SOCIAL HISTORY GENERAL: TOBACCO USE ARE YOU A:NONSMOKER LATEX QUESTIONNAIRE LATEX ALLERGY : HAVE YOU EVER DEVELOPED ANY TYPE OF REACTION AFTER HANDLING LATEX PRODUCTS SUCH RUBBER GLOVES, CONDOMS, DIAPHRAGMS, BALLOONS, SOCKS, OR UNDERWEAR?NO LATEX ALLERGY : HAVE YOU EVER DEVELOPED ANY TYPE OF REACTION DURING OR AFTER DENTAL APPOINTMENT, VAGINAL/RECTAL EXAMINATION, SURGICAL PROCEDURE, OR ANY OTHER EXPOSURE?NO DATE ASKED : 04/28/2020 LATEX RISK : HAVE YOU EVER HAD ANY DIFFICULTY BREATHING OR HIVES AFTER EATING OR HANDLING ANY FRUITS, OR VEGETABLES; SUCH KIWI, BANANAS, STONE FRUITS, OR CHESTNUTSNO LATEX RISK : DO YOU HAVE A PREVIOUS PERSONAL HISTORY OF MORE THAN NINE SURGERIES, SPINA BIFIDA, OR REPEATED CATHERIZATIONS? YES - PLEASE INDICATE : > 9 SURGERIES LATEX RISK : ARE YOU FREQUENTLY EXPOSED TO LATEX PRODUCTS IN YOUR OCCUPATION?NO ALCOHOL USE: NO. ALCOHOL SCREENING DID YOU HAVE A DRINK CONTAINING ALCOHOL IN THE PAST YEAR?NO POINTS0 INTERPRETATIONNEGATIVE RECREATIONAL DRUG USE DRUG USE?NO PATIENT DENIES ABUSE OR MISSUSED OF ANY MEDICATION DENIES PATIENT DENIES USE OF ANY ILLEGAL SUBSTANCE INCLUDING MARIJUANA OR COCAINE DENIES JEHOVAH'S WITNESS [id number] BAPTISM LANGUAGE LANGUAGES SPOKEN:TAJIK LEARNING BARRIERS / SPECIAL NEEDS CHANGE FROM LAST VISIT?NO BARRIERS TO LEARNING?NO HEARING IMPAIRED?NO VISION IMPAIRED?YES COGNITIVELY IMPAIRED?NO :CORRECTIVE LENSES READINESS TO LEARN?YES LEARNING PREFERENCES?NO LEARNING CAPABILITIES PRESENT?YES EMOTIONAL BARRIERS?NO SPECIAL DEVICES?YES :CANE NEEDED EVAPORATOR REPAIRER NEEDED?NO DOMESTIC VIOLENCE DO YOU FEEL SAFE IN YOUR ENVIRONMENT?YES - WAS THE PROVIDER NOTIFIED OF ANY PERTINENT INFO?YES HAS THE PATIENT BEEN EDUCATED REGARDING HIS/HER PLAN OF CARE?YES HAS THE PATIENT BEEN EDUCATED REGARDING PAIN, THE RISK FOR PAIN, THE IMPORTANCE OF EFFECTIVE PAIN MANAGEMENT, AND THE PAIN ASSESSMENT PROCESS?YES ADVANCE DIRECTIVE ADVANCE DIRECTIVE DISCUSSED WITH PATIENT:YES PT STATES THAT HE DOES NOT HAVE HCP AT THIS TIME, DECLINES ASSISTANCE WITH PAPERWORK. HOSPITALIZATION/MAJOR DIAGNOSTIC PROCEDURE SURGERIES REVIEW OF SYSTEMS CONSTITUTIONAL: ANY RECENT FEVER NO . CHILLS NO . WEIGHT CHANGE OF UNKNOWN REASONS NO . GASTROENTEROLOGY: NEW UNEXPLAINABLE CHANGES IN BOWEL CONTROL NO . CONSTIPATION NO . GENITOURINARY: ANY NEW CHANGE IN BLADDER CONTROL? NO . NEUROLOGY: NEW ONSET DIZZINESS OR NEUROLOGICAL CHANGES NOT MENTIONED NO . NEW NUMBNESS OR PAIN PATTERNS NOT MENTIONED AND PERTINENT TO TODAY'S VISIT NO . CARDIOLOGY: NEW CHEST PRESSURE NO . PATIENT DENIES NO . RESPIRATORY: UNEXPLAINABLE COUGH NO . NEW SHORTNESS OF BREATH NO . VITAL SIGNS WT 289.2 LBS, HT 70 IN, BMI 41.49 INDEX, BP 133/74 MM HG, HR 69 /MIN, RR 18 /MIN, TEMP 97.4 F, OXYGEN SAT % 97%, SAFE IN ENV? (Y/N) YES, NA INITIALS AW 0931T.CHIRS BABIN. EXAMINATION GENERAL EXAMINATION: GENERAL AWAKE,ALERT ,PLEASANT . PSYCH AFFECT NORMAL . LUNGS: LUNG TORRES ARE CLEAR TO AUSCULTATION BILATERALLY. GOOD MOVEMENT OF AIR . HEART: S1, S2 IN A REGULAR RATE AND RHYTHM. NO SIGNIFICANT MURMURS, RUBS OR GALLOPS NOTED . MUSCULOSKELETAL:WEAKNESS NOTED OVER BILATERAL LOWER EXTREMITIES LEFT GREATER THAN RIGHT. MODIFIED STRAIGHT LEG RAISE OVER LEFT LEG PRODUCES SEVERE INCREASE IN LOW BACK PAIN ON THE RIGHT SIDE AT LESS THAN 30 . LUMBAR:PALPATION: + FOR PAIN OVER L/S SPINE. + FOR PAIN OVER L/S PARASPINALS. WELL-HEALED SURGICAL SCAR OVER L/S AXIS SPECIFIC POINT TENDERNESS NOTED OVER BILATERAL L4-5 L5-S1 LUMBAR FACETS WITH FACET LOADING BILATERALLY.. DIAGNOSTIC TESTS REVIEWEDMRI L/S SPINE 2020 . ASSESSMENTS SPONDYLOSIS WITHOUT MYELOPATHY OR RADICULOPATHY, LUMBAR REGION - M47.816 (PRIMARY) TREATMENT SPONDYLOSIS WITHOUT MYELOPATHY OR RADICULOPATHY, LUMBAR REGION START KETOROLAC TROMETHAMINE TABLET, 10 MG, 1 TABLET WITH FOOD OR MILK NEEDED, ORALLY, EVERY 6 HRS, 5 DAY(S), 20, REFILLS 0 NOTES: BILATERAL DIAGNOSTIC LUMBAR FACET BLOCK L4-5,L5-S1.ADVISED TO START KETOROLAC 10MG TAB 1 TAB X5 DAYS FOR ACUTE BACK PAIN. PRINTED AND REVIEWED PRE PROCEDURE TEACHING WITH PATIENT OTIS OLAF. PROCEDURES PN WORKMANS' COMP OPINION IN YOUR OPINION, WAS THE INCIDENT THAT THE PATIENT DESCRIBED THE COMPETENT MEDICAL CAUSE OF THIS INJURY/ILLNESS? YES ARE THE PATIENT'S COMPLAINTS CONSISTENT WITH HIS/HER HISTORY OF THE INJURY/ILLNESS? YES IS THE PATIENT'S HISTORY OF THE INJURY/ILLNESS CONSISTENT WITH YOUR OBJECTIVE FINDING? YES WHAT IS THE PERCENTAGE OF TEMPORARY IMPAIRMENT? MODERATE TO MARKED = 66.7% IS THE PATIENT WORKING? NO DOCTOR ON SITE: PRADEEP CUEVAS MD , PRADEEP CUEVAS MD PROCEDURE CODES FA211 ESTABILISHED PATIENT [facility] FACILITY CHARGE DISPOSITION & COMMUNICATION FOLLOW UP POST PROCEDURE (REASON: BILATERAL DIAGNOSTIC LUMBAR FACET BLOCK L4-5,L5-S1) ELECTRONICALLY SIGNED BY SHAHAB IRIZARRY ON 06/20/2020 AT 03:34 PM EDT DISCLAIMER : THIS IS A VISIT SUMMARY EXTRACTED FROM THE [employer] CHART. IT IS NOT A COPY OF THE [employer] PROGRESS NOTE. MTDD
== END ==
LOC: M PAIN 09:45
PROVIDERS: ATTEND Nurse Practitioner Family
DX: M47.816 Spondylosis without myelopathy or radiculopathy, lumbar region (principal); I10 Essential (primary) hypertension; E03.9 Hypothyroidism, unspecified; E78.00 Pure hypercholesterolemia, unspecified; Z79.82 Long term (current) use of aspirin; Z79.899 Other long term (current) drug therapy; Z91.018 Allergy to other foods; Z88.8 Allergy status to other drugs, medicaments and biological substances

== ENCOUNTER → 2020-07-12 | Outpatient (CLI) | payer OTHER, BC | LOC: M LABSMTC 08:07 | PROVIDERS: ATTEND Anesthesiology | DX: Z01.812 Encounter for preprocedural laboratory examination (principal); Z11.52 Encounter for screening for COVID-19 ==

== ENCOUNTER → 2020-07-17 | Outpatient (CLI) | payer OTHER, BC ==
[~2020-07-17] MED LIST changes: -NORCO, ANEXSIA 5/325MG TABLET (HYDROcodone/ACETAMINOPHEN) As Ordered ONE; -TRIAMCINOLONE ACETONIDE SUSP 40 MG/ML VIAL (J3301) As Ordered ONE; -diazePAM 2 MG TAB As Ordered ONE
--- NOTE | 2020-07-17 15:49 | REP ---
INDICATION: BILATERAL DIAGNOSTIC LUMBAR FACET BLOCK L4-L5, L5-S1. COMPARISON: None. TECHNIQUE: Four views. 73.3 seconds of fluoroscopy time is reported. FINDINGS: A sequence of 4 last image hold fluoroscopically obtained spot radiograph(s) of the lumbar spine document(s) needle position(s) and contrast injection associated with injection procedure. IMPRESSION: Procedural imaging. <Electronically signed by Royce Hall > 07/17/20 0281
--- NOTE | 2020-07-23 01:42 | ECWPNPC ---
PATIENT NAME: TRUPTI ARNOLD : 1955 GENDER: MALE VISIT DATE: 07/17/2020 DISCHARGE DATE: 07/17/20 1445 VISIT LOCKED DATE TIME: PHYSICIAN: PRADEEP WALSH MD RESOURCE: PRADEEP WALSH MD REASON FOR APPOINTMENT 1. BILATERAL DIAGNOSTIC LUMBAR FACET BLOCK L4-L5,L5-S1 HISTORY OF PRESENT ILLNESS GENERAL: -. FALL RISK SCREENING: SCREENING :ONE FALL APPROXIMATELY A MONTH - TWO AGO, PATIENT REPORTS WEAKNESS IN BOTH LEGS RESULTING IN FALL, PATIENT DENIES SEEKING MEDICAL ATTENTION.. PAIN SCREENING: PATIENT HAS A COMPLAINT OF ACUTE OR CHRONIC PAIN :YES LOCATION OF PAIN:LOW BACK INTENSITY OF PAIN (SCALE OF 1 TO 10):5 WHAT DOES YOUR PAIN FEEL LIKE:STABBING, THROBBING DURATION:CONTINOUS, CONSTANT, AWAKENS FROM SLEEP PAIN IS INCREASED BY:ACTIVITIES, PROLONGED STANDING PAIN IS DECREASED BY:OTHERS HEAT AND ICE PLAN/GOALS/TREATMENT/INTERVENTION/FOLLOW UP:SEE PLAN NURSING NOTE: -. PAIN CENTER INTAKE QUESTIONS: DO YOU HAVE A HISTORY OF MRSA? :NO DO YOU TAKE A BLOOD THINNERS? :NO DO YOU HAVE ANY BLEEDING DISORDERS? :NO ANY NEW NUMBNESS OR WEAKNESS IN YOUR LEGS OR ARMS? :YES NUMBESS IN BOTH LEGS ANY PACEMAKER,DEFIBRILLATOR, OR DORSAL COLUMN STIMULATOR? :NO DO YOU HAVE ANY RASHES OR OPEN SORES? :NO ARE YOU ALLERGIC TO IV DYE? :NO ARE YOU DIABETIC? :NO ANY NEW PROBLEMS WITH YOUR MEDICATIONS? :NO HAVE YOU RECEIVED A VACCINE IN THE PAST 30 DAYS? :NO DO YOU PLAN TO RECEIVE A VACCINE IN THE NEXT 21 DAYS? :NO DO YOU TAKE ANY IMMUNOSUPPRESSIVE MEDICATIONS? :NO ANY HISTORY OF SEIZURES? :NO ANY HISTORY OF CARDIAC ISSUES OR EVENTS? :YES CAD WITH FIVE STENTS (2017) DO YOU HAVE ANY KIDNEY OR LIVER DISEASE? :NO IS THERE A CHANCE YOU COULD BE ? :N/A ARE YOU BREAST FEEDING? :N/A WHEN DID YOU LAST EAT? : 07/16/20 WHEN DID YOU LAST DRINK? : 07/17/20 0900 WHAT DID YOU LAST DRINK? : WATER NAME OF PERSON DRIVING YOU HOME? : DAYAAN (FRIEND) DO YOU HAVE ANY OTHER QUESTIONS OR CONCERNS? : NO CURRENT MEDICATIONS TAKING LYRICA 75 MG CAPSULE 1 CAPSULE ORALLY TID TAKING VALSARTAN 320 MG TABLET 1 TABLET ORALLY ONCE A DAY, NOTES: 07/17/20899 TAKING ATORVASTATIN CALCIUM 40 MG TABLET 1 TABLET ORALLY ONCE A DAY TAKING LABETALOL HCL 200 MG TABLET 1 TABLET ORALLY TWICE A DAY, NOTES: 07/17/20899 TAKING SERTRALINE HCL 100 MG TABLET 1 TABLET ORALLY ONCE A DAY TAKING LEVOTHYROXINE SODIUM 25 MCG TABLET 1 TABLET IN THE MORNING ON AN EMPTY STOMACH ORALLY ONCE A DAY TAKING MECLIZINE HCL 12.5 MG TABLET 1 TABLETS NEEDED ORALLY TID PRN TAKING AMLODIPINE BESYLATE 5 MG TABLET 1 TABLET ORALLY ONCE A DAY, NOTES: 07/17/20899 TAKING ASPIR-81 1 TAB DAILY, NOTES: 07/17/20899 TAKING FUROSEMIDE 40 MG TABLET 1 TABLET ORALLY ONCE A DAY PRN TAKING POTASSIUM CHLORIDE 10 MEQ CAPSULE EXTENDED RELEASE 1 CAPSULE WITH FOOD ORALLY PRN DAILY WITH LASIX TAKING MAGNESIUM 200 MG TABLET 1 TABLET WITH A MEAL ORALLY ONCE A DAY TAKING TYLENOL EXTRA STRENGTH 500 MG TABLET 2 TABLET NEEDED ORALLY DIRECTED, NOTES: 07/16/202199 NOT-TAKING KETOROLAC TROMETHAMINE 10 MG TABLET 1 TABLET WITH FOOD OR MILK NEEDED ORALLY EVERY 6 HRS NOT-TAKING MELOXICAM 7.5 MG TABLET 1 TABLET ORALLY ONCE A DAY NOT-TAKING VITAMIN D (CHOLECALCIFEROL) 50 MCG (1999) CAPSULE 1 CAPSULE ORALLY ONCE A DAY MEDICATION LIST REVIEWED AND RECONCILED WITH THE PATIENT PAST MEDICAL HISTORY HTN HYPOTHYROIDISM HIGH CHOLESTEROL CHRONIC LOW BACK PAIN ALLERGIES VICKS BABYRUB: ANAPHYLAXIS - ALLERGY MELON: ANAPHYLAXIS - ALLERGY SOCIAL HISTORY GENERAL: TOBACCO USE ARE YOU A:NONSMOKER LATEX QUESTIONNAIRE LATEX ALLERGY : HAVE YOU EVER DEVELOPED ANY TYPE OF REACTION AFTER HANDLING LATEX PRODUCTS SUCH RUBBER GLOVES, CONDOMS, DIAPHRAGMS, BALLOONS, SOCKS, OR UNDERWEAR?NO LATEX ALLERGY : HAVE YOU EVER DEVELOPED ANY TYPE OF REACTION DURING OR AFTER DENTAL APPOINTMENT, VAGINAL/RECTAL EXAMINATION, SURGICAL PROCEDURE, OR ANY OTHER EXPOSURE?NO LATEX RISK : HAVE YOU EVER HAD ANY DIFFICULTY BREATHING OR HIVES AFTER EATING OR HANDLING ANY FRUITS, OR VEGETABLES; SUCH KIWI, BANANAS, STONE FRUITS, OR CHESTNUTSNO LATEX RISK : DO YOU HAVE A PREVIOUS PERSONAL HISTORY OF MORE THAN NINE SURGERIES, SPINA BIFIDA, OR REPEATED CATHERIZATIONS? YES - PLEASE INDICATE : > 9 SURGERIES LATEX RISK : ARE YOU FREQUENTLY EXPOSED TO LATEX PRODUCTS IN YOUR OCCUPATION?NO DATE ASKED : 07/15/2020 ALCOHOL USE: NO. ALCOHOL SCREENING DID YOU HAVE A DRINK CONTAINING ALCOHOL IN THE PAST YEAR?NO POINTS0 INTERPRETATIONNEGATIVE RECREATIONAL DRUG USE DRUG USE?NO PATIENT DENIES ABUSE OR MISSUSED OF ANY MEDICATION DENIES PATIENT DENIES USE OF ANY ILLEGAL SUBSTANCE INCLUDING MARIJUANA OR COCAINE DENIES MANDAEN [id number] RELIGION LANGUAGE LANGUAGES SPOKEN:PAPUA [place] LEARNING BARRIERS / SPECIAL NEEDS CHANGE FROM LAST VISIT?NO BARRIERS TO LEARNING?NO HEARING IMPAIRED?NO VISION IMPAIRED?YES :CORRECTIVE LENSES COGNITIVELY IMPAIRED?NO READINESS TO LEARN?YES LEARNING PREFERENCES?NO LEARNING CAPABILITIES PRESENT?YES EMOTIONAL BARRIERS?NO SPECIAL DEVICES?YES :CANE NEEDED FLOWER BUNCHER OR PICKER NEEDED?NO DOMESTIC VIOLENCE DO YOU FEEL SAFE IN YOUR ENVIRONMENT?YES - WAS THE PROVIDER NOTIFIED OF ANY PERTINENT INFO?YES HAS THE PATIENT BEEN EDUCATED REGARDING HIS/HER PLAN OF CARE?YES HAS THE PATIENT BEEN EDUCATED REGARDING PAIN, THE RISK FOR PAIN, THE IMPORTANCE OF EFFECTIVE PAIN MANAGEMENT, AND THE PAIN ASSESSMENT PROCESS?YES ADVANCE DIRECTIVE ADVANCE DIRECTIVE DISCUSSED WITH PATIENT:YES PT STATES THAT HE DOES NOT HAVE HCP AT THIS TIME, DECLINES ASSISTANCE WITH PAPERWORK. VITAL SIGNS WT 281.2 LBS, HT 70 IN, BMI 40.34 INDEX, BP 136/77 MM HG, HR 73 /MIN, RR 18 /MIN, TEMP 96.6 F, OXYGEN SAT % 95%, SAFE IN ENV? (Y/N) YES, NA INITIALS AW [id number]. Pete FREITAS RN 07/17/20 1222. EXAMINATION GENERAL: A HISTORY AND PHYSICAL EXAM ON THE PATIENT WAS DONE ON 06/20/2020 (DATE OF ORIGINAL ASSESSMENT) IN PREPARATION OF SURGERY/PROCEDURE. I HAVE NOW REASSESSED THIS PATIENT'S HEALTH STATUS AND PERFORMED AN UPDATED EXAM TODAY. ALL CHANGES IN THE PATIENT'S HISTORY, PHYSICAL EXAM, PRE-EXISTING CONDITONS, AND INDICATIONS/CONTRAINDICATIONS TO THE PLANNED PROCEDURE AND ANESTHESIA ARE DOCUMENTED AND EVALUATED BELOW. I ATTEST TO THE ADEQUACY AND APPROPRIATENESS OF MY ASSESSMENT, AND CONFIRM THE NECESSITY FOR THE PLANNED PROCEDURE. THE PATIENT IS ALERT, ORIENTED TIMES THREE AND COOPERATIVE. LUNGS ARE CLEAR TO AUSCULTATION. HEART SHOWS REGULAR RHYTHM, NO MURMURS AND NO GALLOPS. ASSESSMENTS SPONDYLOSIS WITHOUT MYELOPATHY OR RADICULOPATHY, LUMBAR REGION - M47.816 (PRIMARY) SPONDYLOSIS WITHOUT MYELOPATHY OR RADICULOPATHY, LUMBOSACRAL REGION - M47.817 TREATMENT SPONDYLOSIS WITHOUT MYELOPATHY OR RADICULOPATHY, LUMBAR REGION [facility] FACET BLOCK (PAIN)[id number] COMPLETION OF PROCEDURAL VISIT WHEN MEETS CRITERIAALLEY FOWLER 07/17/2020 2:53:30 PM > CRITERIA MET SPONDYLOSIS WITHOUT MYELOPATHY OR RADICULOPATHY, LUMBOSACRAL REGION [facility] FACET BLOCK (PAIN)[id number] OTHERS NOTES: 07/15/20 1522 PAT COMPLETED. PATIENT REMINDED OF NPO STATUS AND PATIENT VERBALIZES UNDERSTANDING ABOUT HOLDING OFF ON PAIN MEDICATIONS AND MUSCLE RELAXANTS AFTER MIDNIGHT EVENING BEFORE PROCEDURE. Tosin SAMUELS [employer] VICE PRESIDENT. PROCEDURES PAIN NURSING RECORD PROCEDURE IN ROOM 1400, PHYSICIAN IN ROOM 1412, START 1418, FINISH 1427, PHYSICIAN OUT OF ROOM 1428, OUT OF ROOM 1435, ECG NORMAL SINUS, PATIENT SHIELDED YES, SAFETY STRAP YES, PREP CHLORHEXIDINE AND DURAPREP Tosin SAMUELS RN, DRESSING TEGADERM DR. WALSH LOC: 1. ALERT, ORIENTED, ALLEY FOWLER 07/17/2020 2:19:44 PM > RESP: 1. REGULAR, NO DYSPNEA, ALLEY FOWLER 07/17/2020 2:19:47 PM > COLOR: 1. PINK, ALLEY FOWLER 07/17/2020 2:19:51 PM > SKIN: 1. WARM, DRY, ALLEY FOWLER 07/17/2020 2:19:55 PM > POSITION: 1. PRONE, ALLEY FOWLER 07/17/2020 2:20:00 PM > VITALS: 141/73, 63, 16, 96%, ALLEY FOWLER 07/17/2020 2:06:28 PM > 142/74, 67, 16, 96%, MALCOLMKATIA AMBRIZALLEY 07/17/2020 2:20:23 PM> 143/83, 67, 16, 96% > , ALLEY FOWLER 07/17/2020 2:40:51 PM > 157/81, 79, 16, 98%, MALCOLMKATIA AMBRIZALLEY 07/17/2020 2:47:11 PM > AMANDA FOWLER RN COMPLETION OF PROCEDURE APPOINTMENT: POST PAIN 2, DRESSING SITE DRY AND INTACT, IV N/A, GAIT STEADY, TEACHING COMPLETED, PATIENT ACKNOWLEDGES UNDERSTANDING YES, PROCEDURE APPOINTMENT COMPLETED AT 1448 PN WORKMANS' COMP OPINION IN YOUR OPINION, WAS THE INCIDENT THAT THE PATIENT DESCRIBED THE COMPETENT MEDICAL CAUSE OF THIS INJURY/ILLNESS? YES ARE THE PATIENT'S COMPLAINTS CONSISTENT WITH HIS/HER HISTORY OF THE INJURY/ILLNESS? YES IS THE PATIENT'S HISTORY OF THE INJURY/ILLNESS CONSISTENT WITH YOUR OBJECTIVE FINDING? YES WHAT IS THE PERCENTAGE OF TEMPORARY IMPAIRMENT? MODERATE TO MARKED = 66.7% IS THE PATIENT WORKING? NO DOCTOR ON SITE: MD [facility] [employer] LUMBAR FACET BLOCK DIAGNOSTIC PRE PROCEDURE DIAGNOSIS LUMBAR SPONDYLOSIS, LUMBOSACRAL SPONDYLOSIS POST PROCEDURE DIAGNOSIS LUMBAR SPONDYLOSIS, LUMBOSACRAL SPONDYLOSIS PROCEDURE BILATERAL L4-L5 AND BILATERAL L5-S1 FACET BLOCK DIAGNOSTIC NUMBER [address] PRADEEP WALSH QUALITY CONTROL SPECIALIST NONE ANESTHESIA LOCAL PRE PROCEDURE NOTE THE PATIENT WITH HISTORY OF CHRONIC LOW BACK PAIN. I EVALUATED THE PATIENT AND REVIEWED THE CHART. I WENT OVER THE RISKS, ALTERNATIVES, AND BENEFITS ASSOCIATED WITH THIS PROCEDURE. THE PATIENT WOULD LIKE TO PROCEED AND GAVE CONSENT TO PERFORM THE PROCEDURE. AGREED WITH THE PATIENT, WE ARE DOING THIS PROCEDURE TO DETERMINE IF THE PATIENT IS A CANDIDATE FOR A RADIOFREQUENCY ABLATION OF THE FACETS JOINTS. THE PATIENT DENIES UNEXPLAINABLE WEIGHT LOSS, FEVER, CHILLS, OR NEW CHANGES IN URINARY OR BOWEL CONTROL. THE PATIENT IS COVID-19 NEGATIVE DESCRIPTION OF PROCEDURE THE PATIENT WAS BROUGHT TO THE PROCEDURE ROOM AND PLACED IN THE PRONE POSITION. THE LUMBOSACRAL AREA WAS CLEANED WITH CHLORHEXIDINE AND DURAPREP SOLUTION AND DRAPED ASEPTICALLY. THE PROCEDURE WAS DONE UNDER STERILE CONDITIONS. A TIMEOUT WAS PERFORMED WHERE THE CONSENTED SITE WAS VERIFIED WITH EVERYONE IN THE ROOM. UNDER FLUOROSCOPIC GUIDANCE, TARGETS WERE SELECTED AT THE INTERSECTION OF THE RIGHT AND LEFT TRANSVERSE PROCESS OF L4, L5 AND ALA OF S1 WITH ITS RESPECTIVE SUPERIOR ARTICULAR PROCESS WITH A TARGET OF THE MEDIAN BRANCHES OF L3, L4 AND THE DORSAL RAMI OF L5. I CONFIRMED AGAIN THE SITE OF TARGET. LIDOCAINE WAS USED TO NUMB THE SKIN AND THE SUBCUTANEOUS TISSUE BELOW IT. SPINAL NEEDLE, 22-GAUGE, WAS ADVANCED UNDER FLUOROSCOPIC GUIDANCE AND FOLLOWING PATIENT FEEDBACK UNTIL THE TARGETS WERE REACHED. POSITION OF THE NEEDLES WAS VERIFIED WITH AP AND LATERAL VIEWS. AFTER PROPER POSITION OF THE NEEDLES WAS ACHIEVED, ISOVUE-M DYE 30%, 0.1 ML, WAS INJECTED AT EACH SITE SHOWING ADEQUATE SPREAD OF THE DYE. THEN, A SOLUTION OF 0.4 ML OF BUPIVACAINE 0.25% WAS INJECTED AT EACH SITE. THE MEDICATIONS WERE VERIFIED WITH THE NURSE. THERE WAS NO EVIDENCE OF BLOOD, PARESTHESIA OR CEREBROSPINAL FLUID DURING THE PROCEDURE. THE PATIENT WAS SENT TO THE RECOVERY ROOM. THE PATIENT WAS MOVING THE EXTREMITIES AND DOING WELL. THERE WERE NO COMPLICATIONS DURING THE PROCEDURE. ESTIMATED BLOOD LOSS WAS LESS THAN 5 ML. FLUOROSCOPY TIME WAS 1 MINUTE 13 SECONDS POST PROCEDURE NOTE THE PATIENT WILL DOCUMENT THE PAIN LEVEL AND RESPONSE TO THIS PROCEDURE PER PAIN DIARY. THE PATIENT WILL BE SEEN IN A FOLLOW UP IN THE NEXT FEW WEEKS. FURTHER DETERMINATION FOR THE PATIENT'S CASE WILL BE DONE AT THE NEXT VISIT. INSTRUCTIONS WERE GIVEN, QUESTIONS WERE ANSWERED, AND THE PATIENT EXPRESSED UNDERSTANDING AND AGREED WITH THE PLAN. I, DENVER BASS, DOCUMENTED THE ABOVE INFORMATION ACTING A SCRIBE FOR DR. WALSH. I HAVE REVIEWED THE ABOVE DOCUMENT, WRITTEN BY DENVER BASS, DERRICK BOAT LEVERMAN, AND I VERIFY THAT IT IS ACCURATE PROCEDURE CODES 92152 INJ PARAVERT F JNT L/S 1 LEV, MODIFIERS: 50 [id number] INJ PARAVERT F JNT L/S 2 LEV, MODIFIERS: 50 DISPOSITION & COMMUNICATION FOLLOW UP FOLLOW UP WITH HEEL COMPRESSOR (REASON: POST BILATERAL DIAGNOSTIC LUMBAR FACET BLOCK L4-L5, L5-S1 #1) ELECTRONICALLY SIGNED BY PRADEEP WALSH MD, MD ON 07/22/2020 AT 03:14 PM EDT DISCLAIMER : THIS IS A VISIT SUMMARY EXTRACTED FROM THE [employer] CHART. IT IS NOT A COPY OF THE [employer] PROGRESS NOTE. MTDD
== END ==
LOC: M PAIN 11:20
PROVIDERS: ATTEND Anesthesiology
DX: M47.816 Spondylosis without myelopathy or radiculopathy, lumbar region (principal); M47.817 Spondylosis without myelopathy or radiculopathy, lumbosacral region; I10 Essential (primary) hypertension; E03.9 Hypothyroidism, unspecified; E78.00 Pure hypercholesterolemia, unspecified; M54.5 Low back pain; Z79.82 Long term (current) use of aspirin; Z79.899 Other long term (current) drug therapy; Z91.018 Allergy to other foods; Z91.048 Other nonmedicinal substance allergy status
CPT/HCPCS: 64493; 64494; Q9967

== ENCOUNTER → 2020-07-23 | Outpatient (CLI) | payer OTHER, BC ==
--- NOTE | 2020-07-25 01:19 | ECWPNPC ---
PATIENT NAME: TRUPTI ARNOLD : 1955 GENDER: MALE VISIT DATE: 07/23/2020 DISCHARGE DATE: 07/23/20 1034 VISIT LOCKED DATE TIME: PHYSICIAN: IRMA LAZO RESOURCE: IRMA LAZO REASON FOR APPOINTMENT 1. POST BILATERAL DIAGNOSTIC LUMBAR FACET BLOCK L4-5,L5-S1 HISTORY OF PRESENT ILLNESS GENERAL: HERE FOR POST PROCEDURE FOLLOW-UP. HAD BILATERAL DIAGNOSTIC LUMBAR FACET L4-5 L5-S1 ON 07/17/2020. CONTINUES TO BENEFIT WITH REDUCTION IN LOW BACK PAIN AND IMPROVED MOBILITY. THIS IS A WORK RELATED INJURY. -. FALL RISK SCREENING: SCREENING : NO FALLS REPORTED IN THE LAST YEAR, ONE FALL DURING THE WINTER, NO INJURIES DID NOT GO TO THE ER. PAIN SCREENING: PATIENT HAS A COMPLAINT OF ACUTE OR CHRONIC PAIN :YES LOCATION OF PAIN:LOW BACK INTENSITY OF PAIN (SCALE OF 1 TO 10):2 WHAT DOES YOUR PAIN FEEL LIKE:SORE DURATION:ONLY WITH SPECIFIC ACTIVITIES PAIN IS INCREASED BY:ACTIVITIES PAIN IS DECREASED BY:SITTING NURSING NOTE: -. PAIN CENTER INTAKE QUESTIONS: DO YOU HAVE A HISTORY OF MRSA? :NO DO YOU TAKE A BLOOD THINNERS? :NO DO YOU HAVE ANY BLEEDING DISORDERS? :NO ANY NEW NUMBNESS OR WEAKNESS IN YOUR LEGS OR ARMS? :YES NUMBESS IN BOTH LEGS ANY PACEMAKER,DEFIBRILLATOR, OR DORSAL COLUMN STIMULATOR? :NO DO YOU HAVE ANY RASHES OR OPEN SORES? :NO ARE YOU ALLERGIC TO IV DYE? :NO ARE YOU DIABETIC? :NO ANY NEW PROBLEMS WITH YOUR MEDICATIONS? :NO HAVE YOU RECEIVED A VACCINE IN THE PAST 30 DAYS? :YES IF SO WHAT VACCINE AND WHEN? 2ND COVID 06/09/2020 DO YOU PLAN TO RECEIVE A VACCINE IN THE NEXT 21 DAYS? :NO DO YOU NEED ANY PRESCRIPTION? :NO DO YOU TAKE ANY IMMUNOSUPPRESSIVE MEDICATIONS? :NO IS THERE A CHANCE YOU COULD BE ? :NO ARE YOU BREAST FEEDING? :NO CURRENT MEDICATIONS TAKING LYRICA 75 MG CAPSULE 1 CAPSULE ORALLY TID TAKING ATORVASTATIN CALCIUM 40 MG TABLET 1 TABLET ORALLY ONCE A DAY TAKING LEVOTHYROXINE SODIUM 25 MCG TABLET 1 TABLET IN THE MORNING ON AN EMPTY STOMACH ORALLY ONCE A DAY TAKING SERTRALINE HCL 100 MG TABLET 1 TABLET ORALLY ONCE A DAY TAKING VALSARTAN 320 MG TABLET 1 TABLET ORALLY ONCE A DAY TAKING LABETALOL HCL 200 MG TABLET 1 TABLET ORALLY TWICE A DAY TAKING MECLIZINE HCL 12.5 MG TABLET 1 TABLETS NEEDED ORALLY TID PRN TAKING AMLODIPINE BESYLATE 5 MG TABLET 1 TABLET ORALLY ONCE A DAY TAKING ASPIR-81 1 TAB DAILY TAKING FUROSEMIDE 40 MG TABLET 1 TABLET ORALLY ONCE A DAY PRN TAKING POTASSIUM CHLORIDE 10 MEQ CAPSULE EXTENDED RELEASE 1 CAPSULE WITH FOOD ORALLY PRN DAILY WITH LASIX TAKING MAGNESIUM 200 MG TABLET 1 TABLET WITH A MEAL ORALLY ONCE A DAY TAKING TYLENOL EXTRA STRENGTH 500 MG TABLET 2 TABLET NEEDED ORALLY DIRECTED NOT-TAKING KETOROLAC TROMETHAMINE 10 MG TABLET 1 TABLET WITH FOOD OR MILK NEEDED ORALLY EVERY 6 HRS NOT-TAKING MELOXICAM 7.5 MG TABLET 1 TABLET ORALLY ONCE A DAY NOT-TAKING VITAMIN D (CHOLECALCIFEROL) 50 MCG (1999) CAPSULE 1 CAPSULE ORALLY ONCE A DAY MEDICATION LIST REVIEWED AND RECONCILED WITH THE PATIENT PAST MEDICAL HISTORY HTN HYPOTHYROIDISM HIGH CHOLESTEROL CHRONIC LOW BACK PAIN ALLERGIES VICKS BABYRUB: ANAPHYLAXIS - ALLERGY MELON: ANAPHYLAXIS - ALLERGY SOCIAL HISTORY GENERAL: TOBACCO USE ARE YOU A:NONSMOKER LATEX QUESTIONNAIRE LATEX ALLERGY : HAVE YOU EVER DEVELOPED ANY TYPE OF REACTION AFTER HANDLING LATEX PRODUCTS SUCH RUBBER GLOVES, CONDOMS, DIAPHRAGMS, BALLOONS, SOCKS, OR UNDERWEAR?NO LATEX ALLERGY : HAVE YOU EVER DEVELOPED ANY TYPE OF REACTION DURING OR AFTER DENTAL APPOINTMENT, VAGINAL/RECTAL EXAMINATION, SURGICAL PROCEDURE, OR ANY OTHER EXPOSURE?NO LATEX RISK : HAVE YOU EVER HAD ANY DIFFICULTY BREATHING OR HIVES AFTER EATING OR HANDLING ANY FRUITS, OR VEGETABLES; SUCH KIWI, BANANAS, STONE FRUITS, OR CHESTNUTSNO LATEX RISK : DO YOU HAVE A PREVIOUS PERSONAL HISTORY OF MORE THAN NINE SURGERIES, SPINA BIFIDA, OR REPEATED CATHERIZATIONS? YES - PLEASE INDICATE : > 9 SURGERIES LATEX RISK : ARE YOU FREQUENTLY EXPOSED TO LATEX PRODUCTS IN YOUR OCCUPATION?NO DATE ASKED : 07/23/2020 ALCOHOL USE: NO. ALCOHOL SCREENING DID YOU HAVE A DRINK CONTAINING ALCOHOL IN THE PAST YEAR?NO POINTS0 INTERPRETATIONNEGATIVE RECREATIONAL DRUG USE DRUG USE?NO PATIENT DENIES ABUSE OR MISSUSED OF ANY MEDICATION DENIES PATIENT DENIES USE OF ANY ILLEGAL SUBSTANCE INCLUDING MARIJUANA OR COCAINE DENIES TAOISM [id number] ORTHODOX LANGUAGE LANGUAGES SPOKEN:PRYDEINIG LEARNING BARRIERS / SPECIAL NEEDS CHANGE FROM LAST VISIT?NO BARRIERS TO LEARNING?NO HEARING IMPAIRED?NO VISION IMPAIRED?YES :CORRECTIVE LENSES COGNITIVELY IMPAIRED?NO READINESS TO LEARN?YES LEARNING PREFERENCES?NO LEARNING CAPABILITIES PRESENT?YES EMOTIONAL BARRIERS?NO SPECIAL DEVICES?YES :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 REVIEW OF SYSTEMS CONSTITUTIONAL: ANY RECENT FEVER NO . CHILLS NO . WEIGHT CHANGE OF UNKNOWN REASONS NO . GASTROENTEROLOGY: NEW UNEXPLAINABLE CHANGES IN BOWEL CONTROL NO . CONSTIPATION NO . GENITOURINARY: ANY NEW CHANGE IN BLADDER CONTROL? NO . NEUROLOGY: NEW ONSET DIZZINESS OR NEUROLOGICAL CHANGES NOT MENTIONED NO . NEW NUMBNESS OR PAIN PATTERNS NOT MENTIONED AND PERTINENT TO TODAY'S VISIT NO . CARDIOLOGY: NEW CHEST PRESSURE NO . PATIENT DENIES NO . RESPIRATORY: UNEXPLAINABLE COUGH NO . NEW SHORTNESS OF BREATH NO . VITAL SIGNS WT 279.6 LBS, HT 70 IN, BMI 40.11 INDEX, BP 139/82 MM HG, HR 66 /MIN, RR 18 /MIN, TEMP 98.2 F, OXYGEN SAT % 96%, SAFE IN ENV? (Y/N) YES, NA INITIALS NV 09:59T.CHRIS BABIN. EXAMINATION GENERAL EXAMINATION: GENERALAWAKE,ALERT ,PLEASANT . PSYCHAFFECT NORMAL . LUNGS:LUNG TORRES ARE CLEAR TO AUSCULTATION BILATERALLY. GOOD MOVEMENT OF AIR . HEART:S1, S2 IN A REGULAR RATE AND RHYTHM. NO SIGNIFICANT MURMURS, RUBS OR GALLOPS NOTED . ASSESSMENTS OTHER CHRONIC PAIN - G89.29 (PRIMARY) SPONDYLOSIS WITHOUT MYELOPATHY OR RADICULOPATHY, LUMBAR REGION - M47.816 TREATMENT OTHER CHRONIC PAIN PAIN PROCEDURE LOGDATE OF PROCEDURE1PROCEDURE:BILATERAL DIAGNOSTIC LUMBAR FACET BLOCK #1 L4-L5,L5-L6QSTTZB OF PRE SEDATE0/0RESULT:REDUCTION IN PAIN CONTINUES TODAY PROCEDURES PN WORKMANS' COMP OPINION IN YOUR OPINION, WAS THE INCIDENT THAT THE PATIENT DESCRIBED THE COMPETENT MEDICAL CAUSE OF THIS INJURY/ILLNESS? YES ARE THE PATIENT'S COMPLAINTS CONSISTENT WITH HIS/HER HISTORY OF THE INJURY/ILLNESS? YES IS THE PATIENT'S HISTORY OF THE INJURY/ILLNESS CONSISTENT WITH YOUR OBJECTIVE FINDING? YES WHAT IS THE PERCENTAGE OF TEMPORARY IMPAIRMENT? MODERATE TO MARKED = 66.7% IS THE PATIENT WORKING? NO DOCTOR ON SITE: PRADEEP CUEVAS MD PROCEDURE CODES FA211 ESTABILISHED PATIENT [facility] CHARGE DISPOSITION & COMMUNICATION FOLLOW UP 6 WEEKS (REASON: W/C CHECK PAIN/THERAPEUTIC EFFECT FROM [facility]) ELECTRONICALLY SIGNED BY SHAHAB IRIZARRY ON 07/24/2020 AT 02:22 PM EDT DISCLAIMER : THIS IS A VISIT SUMMARY EXTRACTED FROM THE [employer] CHART. IT IS NOT A COPY OF THE [employer] PROGRESS NOTE. RICK
== END ==
LOC: M PAIN 10:00
PROVIDERS: ATTEND Nurse Practitioner Family
DX: G89.29 Other chronic pain (principal); M47.816 Spondylosis without myelopathy or radiculopathy, lumbar region; E03.9 Hypothyroidism, unspecified; Z91.018 Allergy to other foods; Z91.09 Other allergy status, other than to drugs and biological substances; E66.01 Morbid (severe) obesity due to excess calories; Z68.41 Body mass index [BMI] 40.0-44.9, adult; Z79.82 Long term (current) use of aspirin; Z79.899 Other long term (current) drug therapy

== ENCOUNTER → 2020-09-03 | Outpatient (CLI) | payer OTHER ==
--- NOTE | 2020-09-04 03:11 | ECWPNPC ---
PATIENT NAME: TRUPTI ARNOLD : 1955 GENDER: MALE VISIT DATE: 09/03/2020 DISCHARGE DATE: 09/03/20 1019 VISIT LOCKED DATE TIME: PHYSICIAN: IRMA LAZO RESOURCE: IRMA LAZO REASON FOR APPOINTMENT 1. W/C CHECK PAIN/THERAPEUTIC EFFECT FROM [facility] HISTORY OF PRESENT ILLNESS GENERAL: HERE FOR POST PROCEDURE FOLLOW-UP. HAD BILATERAL DIAGNOSTIC LUMBAR FACET BLOCK L4-5, L5-S1 ON 07/17/2020. CONTINUES TO BENEFIT WITH REDUCTION IN LOW BACK PAIN AND IMPROVED MOBILITY. THIS IS A WORK RELATED INJURY. - -. FALL RISK SCREENING: SCREENING ONE FALL THIS YEAR FROM FALLING DOWN THE STAIRS NO MAJOR INJURIES. PAIN SCREENING: PATIENT HAS A COMPLAINT OF ACUTE OR CHRONIC PAIN :YES LOCATION OF PAIN:LOW BACK INTENSITY OF PAIN (SCALE OF 1 TO 10):2 WHAT DOES YOUR PAIN FEEL LIKE:ACHING, CONTINOUS DURATION:CONTINOUS, CONSTANT, ALL DAY PAIN IS INCREASED BY:ACTIVITIES PAIN IS DECREASED BY:OTHERS RESTING NURSING NOTE: -. PAIN CENTER INTAKE QUESTIONS: DO YOU HAVE A HISTORY OF MRSA? :NO DO YOU TAKE A BLOOD THINNERS? :NO DO YOU HAVE ANY BLEEDING DISORDERS? :NO ANY NEW NUMBNESS OR WEAKNESS IN YOUR LEGS OR ARMS? :YES NUMBESS IN BOTH LEGS ANY PACEMAKER,DEFIBRILLATOR, OR DORSAL COLUMN STIMULATOR? :NO DO YOU HAVE ANY RASHES OR OPEN SORES? :NO ARE YOU ALLERGIC TO IV DYE? :NO ARE YOU DIABETIC? :NO ANY NEW PROBLEMS WITH YOUR MEDICATIONS? :NO HAVE YOU RECEIVED A VACCINE IN THE PAST 30 DAYS? :YES IF SO WHAT VACCINE AND WHEN? 2ND COVID 06/09/2020 DO YOU PLAN TO RECEIVE A VACCINE IN THE NEXT 21 DAYS? :NO DO YOU NEED ANY PRESCRIPTION? :NO DO YOU TAKE ANY IMMUNOSUPPRESSIVE MEDICATIONS? :NO IS THERE A CHANCE YOU COULD BE ? :NO ARE YOU BREAST FEEDING? :NO CURRENT MEDICATIONS TAKING LYRICA 75 MG CAPSULE 1 CAPSULE ORALLY TID TAKING ATORVASTATIN CALCIUM 40 MG TABLET 1 TABLET ORALLY ONCE A DAY TAKING LEVOTHYROXINE SODIUM 25 MCG TABLET 1 TABLET IN THE MORNING ON AN EMPTY STOMACH ORALLY ONCE A DAY TAKING SERTRALINE HCL 100 MG TABLET 1 TABLET ORALLY ONCE A DAY TAKING VALSARTAN 320 MG TABLET 1 TABLET ORALLY ONCE A DAY TAKING LABETALOL HCL 200 MG TABLET 1 TABLET ORALLY TWICE A DAY TAKING MECLIZINE HCL 12.5 MG TABLET 1 TABLETS NEEDED ORALLY TID PRN TAKING AMLODIPINE BESYLATE 5 MG TABLET 1 TABLET ORALLY ONCE A DAY TAKING ASPIR-81 1 TAB DAILY TAKING FUROSEMIDE 40 MG TABLET 1 TABLET ORALLY ONCE A DAY PRN TAKING POTASSIUM CHLORIDE 10 MEQ CAPSULE EXTENDED RELEASE 1 CAPSULE WITH FOOD ORALLY PRN DAILY WITH LASIX TAKING MAGNESIUM 200 MG TABLET 1 TABLET WITH A MEAL ORALLY ONCE A DAY TAKING TYLENOL EXTRA STRENGTH 500 MG TABLET 2 TABLET NEEDED ORALLY DIRECTED NOT-TAKING KETOROLAC TROMETHAMINE 10 MG TABLET 1 TABLET WITH FOOD OR MILK NEEDED ORALLY EVERY 6 HRS NOT-TAKING MELOXICAM 7.5 MG TABLET 1 TABLET ORALLY ONCE A DAY NOT-TAKING VITAMIN D (CHOLECALCIFEROL) 50 MCG (1999) CAPSULE 1 CAPSULE ORALLY ONCE A DAY MEDICATION LIST REVIEWED AND RECONCILED WITH THE PATIENT PAST MEDICAL HISTORY HTN HYPOTHYROIDISM HIGH CHOLESTEROL CHRONIC LOW BACK PAIN ONE FALL THIS YEAR FROM FALLING DOWN THE STAIRS NO MAJOR INJURIES ALLERGIES VICKS BABYRUB: ANAPHYLAXIS - ALLERGY MELON: ANAPHYLAXIS - ALLERGY SOCIAL HISTORY GENERAL: TOBACCO USE ARE YOU A:NONSMOKER LATEX QUESTIONNAIRE LATEX ALLERGY : HAVE YOU EVER DEVELOPED ANY TYPE OF REACTION AFTER HANDLING LATEX PRODUCTS SUCH RUBBER GLOVES, CONDOMS, DIAPHRAGMS, BALLOONS, SOCKS, OR UNDERWEAR?NO LATEX ALLERGY : HAVE YOU EVER DEVELOPED ANY TYPE OF REACTION DURING OR AFTER DENTAL APPOINTMENT, VAGINAL/RECTAL EXAMINATION, SURGICAL PROCEDURE, OR ANY OTHER EXPOSURE?NO LATEX RISK : HAVE YOU EVER HAD ANY DIFFICULTY BREATHING OR HIVES AFTER EATING OR HANDLING ANY FRUITS, OR VEGETABLES; SUCH KIWI, BANANAS, STONE FRUITS, OR CHESTNUTSNO LATEX RISK : DO YOU HAVE A PREVIOUS PERSONAL HISTORY OF MORE THAN NINE SURGERIES, SPINA BIFIDA, OR REPEATED CATHERIZATIONS? YES - PLEASE INDICATE : > 9 SURGERIES LATEX RISK : ARE YOU FREQUENTLY EXPOSED TO LATEX PRODUCTS IN YOUR OCCUPATION?NO DATE ASKED : 09/03/2020 ALCOHOL USE: NO. ALCOHOL SCREENING DID YOU HAVE A DRINK CONTAINING ALCOHOL IN THE PAST YEAR?NO POINTS0 INTERPRETATIONNEGATIVE RECREATIONAL DRUG USE DRUG USE?NO PATIENT DENIES ABUSE OR MISSUSED OF ANY MEDICATION DENIES PATIENT DENIES USE OF ANY ILLEGAL SUBSTANCE INCLUDING MARIJUANA OR COCAINE DENIES JEW [id number] RESTORATIONISM LANGUAGE LANGUAGES SPOKEN:MALAGASY LEARNING BARRIERS / SPECIAL NEEDS CHANGE FROM LAST VISIT?NO BARRIERS TO LEARNING?NO HEARING IMPAIRED?NO VISION IMPAIRED?YES :CORRECTIVE LENSES COGNITIVELY IMPAIRED?NO READINESS TO LEARN?YES LEARNING PREFERENCES?NO LEARNING CAPABILITIES PRESENT?YES EMOTIONAL BARRIERS?NO SPECIAL DEVICES?YES :CANE 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 REVIEW OF SYSTEMS CONSTITUTIONAL: ANY RECENT FEVER NO . CHILLS NO . WEIGHT CHANGE OF UNKNOWN REASONS NO . GASTROENTEROLOGY: NEW UNEXPLAINABLE CHANGES IN BOWEL CONTROL NO . CONSTIPATION NO . GENITOURINARY: ANY NEW CHANGE IN BLADDER CONTROL? NO . NEUROLOGY: NEW ONSET DIZZINESS OR NEUROLOGICAL CHANGES NOT MENTIONED NO . NEW NUMBNESS OR PAIN PATTERNS NOT MENTIONED AND PERTINENT TO TODAY'S VISIT NO . CARDIOLOGY: NEW CHEST PRESSURE NO . PATIENT DENIES NO . RESPIRATORY: UNEXPLAINABLE COUGH NO . NEW SHORTNESS OF BREATH NO . VITAL SIGNS WT 278.0 LBS, HT 70 IN, BMI 39.88 INDEX, BP 119/65 MM HG, HR 67 /MIN, RR 18 /MIN, TEMP 98.1 F, OXYGEN SAT % 94%, SAFE IN ENV? (Y/N) YES, NA INITIALS AW 0942T.CHRIS BABIN. EXAMINATION GENERAL EXAMINATION: GENERALAWAKE,ALERT ,PLEASANT . PSYCHAFFECT NORMAL . LUNGS:LUNG TORRES ARE CLEAR TO AUSCULTATION BILATERALLY. GOOD MOVEMENT OF AIR . HEART:S1, S2 IN A REGULAR RATE AND RHYTHM. NO SIGNIFICANT MURMURS, RUBS OR GALLOPS NOTED . ASSESSMENTS SPONDYLOSIS WITHOUT MYELOPATHY OR RADICULOPATHY, LUMBAR REGION - M47.816 (PRIMARY) TREATMENT SPONDYLOSIS WITHOUT MYELOPATHY OR RADICULOPATHY, LUMBAR REGION NOTES: CONTINUES TO BENEFIT FROM LUMBAR BILATERAL DIAGNOSTIC FACET BLOCK DONE IN JULY.CONTINUE HOME EXCERSISE/WALKING AND STRETCHING EXCERSISES.CONTINUE WITH WEIGHT LOSS EFFORTS.FOLLOW UP AT PAIN CENTER IN 3 MONTHS.ENCOURAGED TO CALL SOONER IF LOW BACK PAIN GETS OUT OF CONTROL. PROCEDURES PN WORKMANS' COMP OPINION IN YOUR OPINION, WAS THE INCIDENT THAT THE PATIENT DESCRIBED THE COMPETENT MEDICAL CAUSE OF THIS INJURY/ILLNESS? YES ARE THE PATIENT'S COMPLAINTS CONSISTENT WITH HIS/HER HISTORY OF THE INJURY/ILLNESS? YES IS THE PATIENT'S HISTORY OF THE INJURY/ILLNESS CONSISTENT WITH YOUR OBJECTIVE FINDING? YES WHAT IS THE PERCENTAGE OF TEMPORARY IMPAIRMENT? MODERATE TO MARKED = 66.7% IS THE PATIENT WORKING? NO DOCTOR ON SITE: PRADEEP CUEVAS MD PROCEDURE CODES FA211 ESTABILISHED PATIENT [facility] CHARGE DISPOSITION & COMMUNICATION FOLLOW UP 3 MONTHS (REASON: WORKMANS COMP LOW BACK PAIN) ELECTRONICALLY SIGNED BY SHAHAB IRIZARRY ON 09/03/2020 AT 01:17 PM EDT DISCLAIMER : THIS IS A VISIT SUMMARY EXTRACTED FROM THE [employer] CHART. IT IS NOT A COPY OF THE [employer] PROGRESS NOTE. RICK
== END ==
LOC: M PAIN 09:30
PROVIDERS: ATTEND Nurse Practitioner Family
DX: M47.816 Spondylosis without myelopathy or radiculopathy, lumbar region (principal); E03.9 Hypothyroidism, unspecified; Z91.018 Allergy to other foods; Z91.09 Other allergy status, other than to drugs and biological substances; Z79.82 Long term (current) use of aspirin; Z79.899 Other long term (current) drug therapy

== ENCOUNTER → 2020-12-04 | Outpatient (CLI) | payer OTHER | LOC: M PAIN 09:30 | PROVIDERS: ATTEND Anesthesiology | DX: M47.816 Spondylosis without myelopathy or radiculopathy, lumbar region (principal); I10 Essential (primary) hypertension; E03.9 Hypothyroidism, unspecified; E78.00 Pure hypercholesterolemia, unspecified; M54.5 Low back pain; Z79.82 Long term (current) use of aspirin; Z79.899 Other long term (current) drug therapy; Z79.1 Long term (current) use of non-steroidal anti-inflammatories (NSAID); Z91.018 Allergy to other foods; Z88.8 Allergy status to other drugs, medicaments and biological substances ==

== ENCOUNTER → 2021-05-13 | Outpatient (CLI) | payer OTHER | LOC: M PAIN 09:30 | PROVIDERS: ATTEND Nurse Practitioner Family | DX: M96.1 Postlaminectomy syndrome, not elsewhere classified (principal); I10 Essential (primary) hypertension; E03.9 Hypothyroidism, unspecified; E78.00 Pure hypercholesterolemia, unspecified; M54.50 Low back pain, unspecified; Z79.82 Long term (current) use of aspirin; Z79.899 Other long term (current) drug therapy; Z79.1 Long term (current) use of non-steroidal anti-inflammatories (NSAID); Z91.018 Allergy to other foods; Z88.8 Allergy status to other drugs, medicaments and biological substances ==

== ENCOUNTER → 2021-10-07 | Outpatient (CLI) | payer OTHER | LOC: M PAIN 10:30 | PROVIDERS: ATTEND Nurse Practitioner Family | DX: M96.1 Postlaminectomy syndrome, not elsewhere classified (principal); I10 Essential (primary) hypertension; E03.9 Hypothyroidism, unspecified; E78.00 Pure hypercholesterolemia, unspecified; M54.50 Low back pain, unspecified; Z79.890 Hormone replacement therapy; Z79.82 Long term (current) use of aspirin; Z79.899 Other long term (current) drug therapy; Z88.8 Allergy status to other drugs, medicaments and biological substances; Z91.018 Allergy to other foods ==

== ENCOUNTER → 2022-01-28 | Outpatient (CLI) | payer OTHER | LOC: M PAIN 09:15 | PROVIDERS: ATTEND Nurse Practitioner Family | DX: M79.18 Myalgia, other site (principal); I10 Essential (primary) hypertension; E03.9 Hypothyroidism, unspecified; E78.00 Pure hypercholesterolemia, unspecified; M54.50 Low back pain, unspecified; Z79.890 Hormone replacement therapy; Z79.82 Long term (current) use of aspirin; Z79.899 Other long term (current) drug therapy; Z91.018 Allergy to other foods; Z91.048 Other nonmedicinal substance allergy status ==

== ENCOUNTER → 2022-03-29 | Outpatient (CLI) | payer OTHER | LOC: M PAIN 08:45 | PROVIDERS: ATTEND Nurse Practitioner Family | DX: M79.18 Myalgia, other site (principal); M96.1 Postlaminectomy syndrome, not elsewhere classified; I10 Essential (primary) hypertension; E03.9 Hypothyroidism, unspecified; E78.00 Pure hypercholesterolemia, unspecified; M54.50 Low back pain, unspecified; Z79.82 Long term (current) use of aspirin; Z79.890 Hormone replacement therapy; Z79.899 Other long term (current) drug therapy; Z91.09 Other allergy status, other than to drugs and biological substances; Z91.018 Allergy to other foods ==